=== PATIENT | female | born 1985 | race African-American/Black ===

== ENCOUNTER 2017-06-21 13:39 | Emergency (ER) | payer SELFPAY ==
[2017-06-21 13:39] VITALS: BP 127/78; PULSE 81; RESP 16; TEMP 36.3; O2SAT 100; BMI 32.5
--- NOTE | 2017-06-21 13:59 | ED.DEP ---
ED Disposition - Plan for ED Patient: Chief Complaint: Dental Instructions: ED Tooth Pain Prescriptions: Oxycodone HCl/Acetaminophen [Percocet 5/325] 1 tablet PO Q6H PRN PRN 2 Days #8 tablet PRN Reason: Pain Penicillin V Potassium 500 mg PO 4X/DAY #40 tablet Referrals: NOT,DEFINED [Primary Care Provider] -
--- NOTE | 2017-06-21 14:06 | ED.DCSUM_ITS ---
- ER Visit Summary Date of Service: 06/21/17 Chief Complaint: Dental pain History of Present Illness: The patient is a 31 F presenting with dental pain. This has been ongoing for the past week. She has appointment with her dentist this upcoming . She has been taking ibuprofen at home with no relief. She denies fever swelling or other complaints. Physical Examination: Vitals are stable. Patient is afebrile. Alert no acute distress. HEENT exam left lower molar tenderness palpation with no surrounding fluctuance. No sublingual edema Neck is supple. Lungs are clear and equal bilaterally. Heart is regular rate and rhythm. Abdomen is soft nontender nondistended. Extremities are unremarkable. Skin is warm and dry. Remainder of exam is unremarkable. Emergency Department Course and Treatment: Patient given penicillin and short course of Percocet. Advised to follow-up with her dentist as scheduled. Advised return ED if worsening complaints. Disposition: Discharge home Impression: Odontalgia This note was generated with [employer] dictation software. It may contain incorrect words, spelling, and punctuation that were not noted in review of the chart prior to signing ED Disposition - Plan for ED Patient: Chief Complaint: Dental Instructions: ED Tooth Pain Prescriptions: Oxycodone HCl/Acetaminophen [Percocet 5/325] 1 tablet PO Q6H PRN PRN 2 Days #8 tablet PRN Reason: Pain Penicillin V Potassium 500 mg PO 4X/DAY #40 tablet Referrals: NOT,DEFINED [Primary Care Provider] -
[2017-06-21] MEDS: Penicillin Vk 250 MG Tablet 500 MG PO (14:15)
[2017-06-21] MEDS: oxyCODONE 5 MG Tablet PO (14:15)
[2017-06-21 14:26] VITALS: PULSE 82; RESP 16; O2SAT 99
== END 2017-06-21 14:27 | disposition home or self-care (01) ==
LOC: ED 14:10
PROVIDERS: Emergency Provider Emergency Medicine
DX: K08.89 Other specified disorders of teeth and supporting structures (principal)
CPT/HCPCS: 99282

== ENCOUNTER 2017-06-23 19:39 | Emergency (ER) | payer SELFPAY ==
[2017-06-23 19:39] VITALS: BP 126/76; PULSE 82; RESP 14; TEMP 35.9; O2SAT 98; BMI 28.1
--- NOTE | 2017-06-23 20:20 | ED.VISSUMM ---
- ER Visit Summary Date of Service: 06/23/17 Chief Complaint: Dental pain History of Present Illness: The patient is a 31 F presenting with dental pain. She states this has been ongoing for the past several days. She was seen in the ED 2 days ago for similar complaints. She was given a short course of Percocet and penicillin at that time. She states she has been unable to get into her dentist. She takes ibuprofen at home. She denies fever or other complaints. Physical Examination: Vitals are stable. Patient is afebrile. Alert no acute distress. HEENT exam frontal teeth tenderness, no surrounding fluctuance. No sublingual edema Neck is supple. Lungs are clear and equal bilaterally. Heart is regular rate and rhythm. Extremities are unremarkable. Skin is warm and dry. Remainder of exam is unremarkable. Emergency Department Course and Treatment: Patient is given Percocet ?1. She is advised to continue ibuprofen and penicillin at home. Advised to follow-up with her dentist. Advised return to ED if worsening complaints. Disposition: Discharge home Impression: Odontalgia This note was generated with [employer] dictation software. It may contain incorrect words, spelling, and punctuation that were not noted in review of the chart prior to signing ED Disposition - Plan for ED Patient: Chief Complaint: Dental Instructions: ED Tooth Pain Referrals: Care Physician,No Primary [Primary Care Provider] -
--- NOTE | 2017-06-23 20:22 | ED.DEP ---
ED Disposition - Plan for ED Patient: Chief Complaint: Dental Instructions: ED Tooth Pain Referrals: Care Physician,No Primary [Primary Care Provider] -
[2017-06-23] MEDS: oxyCODONE 5 MG Tablet PO (20:29)
[2017-06-23 20:30] VITALS: PULSE 80; RESP 15
== END 2017-06-23 20:31 | disposition home or self-care (01) ==
PROVIDERS: Emergency Provider Emergency Medicine
DX: K08.89 Other specified disorders of teeth and supporting structures (principal)
CPT/HCPCS: 99283

== ENCOUNTER → 2017-10-22 14:32 | Outpatient (CLI) | payer MEDICAID, SELFPAY ==
[2017-10-30 11:48] LABS: HPV HC, High Risk Positive (Negative); HPV Reflexed? YES, CHARGE PATIENT
== END ==
PROVIDERS: Visit Provider Obstetrics & Gynecology
DX: Z12.4 Encounter for screening for malignant neoplasm of cervix (principal)
CPT/HCPCS: 87624; 88175; G0145

== ENCOUNTER 2017-11-07 20:08 | Emergency (ER) | payer MEDICAID, SELFPAY ==
[2017-11-07 20:08] VITALS: BP 151/95; PULSE 82; RESP 18; TEMP 36.6; O2SAT 99; BMI 32.5
--- NOTE | 2017-11-07 20:56 | ED.DCSUM_ITS ---
- ER Visit Summary Date of Service: 11/07/17 Chief Complaint: Bee sting History of Present Illness: The patient is a 31 F presenting with bee sting to right knee. This occurred 1.5 hours prior to arrival. She was on her lunch break and was stung by a bee on her right knee. She has had no difficulty breathing or swallowing. No sensation of tongue swelling. She took Benadryl prior to arrival. She has no history of allergies. No other complaints. Physical Examination: Vitals are stable. Patient is afebrile. Alert no acute distress. HEENT exam is unremarkable. No tongue swelling, no pharyngeal edema. Neck is supple. Lungs are clear and equal bilaterally. No wheezing Heart is regular rate and rhythm. Abdomen is soft nontender nondistended. Extremities mild erythema anterior right knee with active full range of motion Skin is warm and dry. No rash No focal neurologic deficit. Remainder of exam is unremarkable. Emergency Department Course and Treatment: Patient is given ice pack, Naprosyn. Advised signs and symptoms for which to return to the ED. Advised return ED for any worsening complaints. Disposition: Discharge home Impression: Local reaction, bee sting This note was generated with [employer] dictation software. It may contain incorrect words, spelling, and punctuation that were not noted in review of the chart prior to signing ED Disposition - Plan for ED Patient: Disposition: Home or Assisted Living Chief Complaint: Lower Extremity Injury Instructions: ED Bite Sting Insect Local Allergic React Referrals: Stefan Jaime MD [STAFF PHYSICIAN] - Care Physician,No Primary [Primary Care Provider] -
--- NOTE | 2017-11-07 21:01 | ED.DEP ---
ED Disposition - Plan for ED Patient: Chief Complaint: Lower Extremity Injury Instructions: ED Bite Sting Insect Local Allergic React Referrals: Care Physician,No Primary [Primary Care Provider] - Stefan Jaime MD [STAFF PHYSICIAN] -
[2017-11-07 21:13] VITALS: PULSE 79; RESP 16; O2SAT 99
[2017-11-07] MEDS: Naproxen 500 MG Tablet PO (21:13)
== END 2017-11-07 21:13 | disposition home or self-care (01) ==
LOC: ED 21:01
PROVIDERS: Emergency Provider Emergency Medicine
DX: T63.441A Toxic effect of venom of bees, accidental (unintentional), initial encounter (principal); L53.0 Toxic erythema; Z72.0 Tobacco use
CPT/HCPCS: 99283

== ENCOUNTER → 2017-11-12 15:52 | Outpatient (CLI) | payer MEDICAID, SELFPAY ==
--- NOTE | 2017-11-12 | IMM_PTH ---
PATIENT: GERSON HERRERA LOC: [facility] U#:[id number] AGE/SX: 39/F ROOM: RE11/12/[address]: Dr. Jadiel Fritz MD : 1985 BED: DIS: SPEC #: [id number] RECD: 11/14/17 10:09 STATUS: ТАТЬЯНА REQ #: [id number] ANIKA: 11/12/17 00:[address]: Jadiel Fritz DEPT: IMMUNOHISTOCHEMISTRY RECD BY: Drea Gibbons ENTERED: 11/14/17 10:10 SP TYPE: IMMUNO OTHR DR: No Primary Care Phys Tissues: Uterine cervix, NOS Procedures: p16 (initial) KI-67 (add) PHYSICIAN & INSTITUTION [place] [phone] SPECIMEN INFORMATION: Tissue Source: A - Cervical biopsy 6 o'clock Clinical Info: ASCUS, positive HPV Specimen Number: [id number] CPT code: 90844, 74116 METHODOLOGY: Deparaffinized sections of prefer/formalin-fixed tissue or PAP/DQ stained slides are incubated with monoclonal/polyclonal antibodies/oligonucleotide probes. Localization is made via biotin free immunoperoxidase method. Appropriate controls are performed and reacted as expected. Results on target cell population are indicated in the following table: RESULTS: ANTIBODY / CLONE RESULT Block A P16 (E6H4) positive, focal block staining Ki-67 (30-9) positive, focal moderate These tests were developed and their performance characteristics determined by [facility]. They may not have been cleared or approved by the U.S. Food and Drug Administration. The FDA has determined that such clearance or approval is not necessary. INTERPRETATION: A.Cervix at 6 o'clock, biopsy: Focal mild and moderate squamous dysplasia. This case has been reviewed in consultation with Dr. Tracy who concurs with the above diagnosis. SJ:renetta 11/17/17
--- NOTE | 2017-11-12 | CER_PTH ---
PATIENT: GERSON HERRERA LOC: [facility] U#:[id number] AGE/SX: 39/F ROOM: RE11/12/[address]: Dr. Jadiel Fritz MD : 1985 BED: DIS: SPEC #: [id number] RECD: 11/13/17 08:14 STATUS: ТАТЬЯНА LOIS #: [id number] ANIKA: 11/12/17 00:[address]: Jadiel Fritz DEPT: SURGICAL PATHOLOGY RECD BY: Eliezer Fish ENTERED: 11/13/17 08:14 SP TYPE: CERV OTHR DR: No Primary Care Phys Tissues: A - Uterine cervix, NOS B - Endocervical Procedures: Surgery Specimen Level IV HEADER OPERATION: Colposcopy PRE-OP DIAGNOSIS: ASCUS, positive HPV TISSUE SUBMITTED: A - Cervical biopsy 6 o'clock, B - ECC MICROSCOPIC DIAGNOSIS A. 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 Focal chronic inflammation. See comment. B. ECC: Fragments of benign ecto- and endocervical epithelium, blood and mucous, negative for dysplasia. ROSSANA:renetta 11/14/17 COMMENT Immunohistochemistry ([id number]) for surrogate HPV marker (p16) supports the above diagnosis. This case has been reviewed in consultation with Dr. Tracy who concurs with the above diagnosis. MICROSCOPIC DESCRIPTION Slides are reviewed. GROSS DESCRIPTION A - Received in fixative is one container labeled with the patient's name and designated cervical biopsy 6 o'clock. The specimen consists of multiple irregular fragments of light stubbs soft tissue that in aggregate measure 1.5 x 0.3 x 0.1 cm. The specimen is totally submitted in one cassette. B - Received in fixative is one container labeled with the patient's name and designated ECC. The specimen consists of multiple fragments of hemorrhagic mucoid tissue that in aggregate measure 1 x 1 x 0.1 cm. The specimen is totally submitted in one cassette. / ROSSANA:renetta 11/13/17 TC:5 CPT: 00566 x2
== END ==
PROVIDERS: Visit Provider Obstetrics & Gynecology
DX: R87.610 Atypical squamous cells of undetermined significance on cytologic smear of cervix (ASC-US) (principal); R87.810 Cervical high risk human papillomavirus (HPV) DNA test positive
CPT/HCPCS: 88305; 88341; 88342

== ENCOUNTER 2017-12-30 10:43 | Emergency (ER) | payer MEDICAID, SELFPAY ==
[2017-12-30 10:45] VITALS: BP 117/78; PULSE 99; RESP 18; TEMP 36.4; O2SAT 99; BMI 33.6
--- NOTE | 2017-12-30 11:53 | ED.DCSUM_ITS ---
- ER Visit Summary Date of Service: 12/30/17 Chief Complaint: Hand trouble History of Present Illness: The patient is a 32 F with right hand pain for several days. The pain feels sharp. It is over the ulnar side and radiates up the forearm. Worse with touch and movement. Worse at night. She does work in a factory. Denies any injuries. No other medical history. Physical Examination: Afebrile and vitals unremarkable. Normal inspection. Good range of motion. Normal strength. She does report subjective paresthesias in her right hand and wrist over the ulnar aspect. Good strength. Good pulses and capillary refill. Test Results: None Emergency Department Course and Treatment: Patient treated with ibuprofen and Kenalog. Wrist splint. Rest ice elevate. Follow-up with primary care. Treatment Plan: As above Disposition: Discharge Impression: 1. Right ulnar neuropathy This note was generated with [employer] dictation software. It may contain incorrect words, spelling, and punctuation that were not noted in review of the chart prior to signing ED Disposition - Plan for ED Patient: Chief Complaint: Upper Extremity Injury Referrals: Care Physician,No Primary [Primary Care Provider] -
--- NOTE | 2017-12-30 11:53 | ED.DEP ---
ED Disposition - Plan for ED Patient: Chief Complaint: Upper Extremity Injury Instructions: ED Palsy Unlar Nerve Prescriptions: Ibuprofen [Motrin] 800 mg PO TID PRN PRN #20 tab PRN Reason: Pain
[2017-12-30] MEDS: Ibuprofen 600 MG Tablet PO (12:07)
[2017-12-30] MEDS: Triamcinolone Acetonide 40 MG/ML Vial IM (12:07)
[2017-12-30 12:26] VITALS: BP 133/68; PULSE 74; RESP 16; O2SAT 100
== END 2017-12-30 12:27 | disposition home or self-care (01) ==
LOC: ED 11:54
PROVIDERS: Emergency Provider Emergency Medicine
DX: G56.21 Lesion of ulnar nerve, right upper limb (principal); Z72.0 Tobacco use
CPT/HCPCS: 96372; 99283

== ENCOUNTER 2018-04-17 03:05 | Emergency (ER) | payer MEDICAID, SELFPAY ==
[2018-04-17 03:07] VITALS: BP 110/69; PULSE 71; RESP 16; TEMP 36.9; O2SAT 97; BMI 34.4
--- NOTE | 2018-04-17 03:16 | CT_ITS ---
HISTORY: ABDOMEN PAIN X 2 DAYS,ELEVATED WBC,PREG TESTWAS NEGATIVE TECHNIQUE: Helically acquired images were obtained of the abdomen and pelvis following IV contrast. A radiation dose optimization technique was used for this scan. IV Contrast dosage and agent: 100 cc Isovue-300 contrast Oral contrast: Yes COMPARISON: 02/27/2017 FINDINGS: With comparison previous, no significant change. Lower thorax: Clear Mild hepatomegaly. No focal hepatic lesion or biliary dilatation. Negative gallbladder. Normal spleen and pancreas. Bilateral renal excretion of contrast without evidence of hydronephrosis, pyelonephritis, or suspicious renal lesion. Adrenal glands are not enlarged. The abdominal aorta and IVC appear normal. No ascites or retroperitoneal lymph no enlargement. GI tract: No obstruction. Normal appendix. Pelvis: Anteverted uterus. Bilateral stent-like devices in the region of the fallopian tubes. The pelvis shows no free fluid or lymphadenopathy. Bones: No acute osseous abnormality. CT/Abdomen/Pelvis WITH Contrast IMPRESSION: 1. No acute disease or significant change. 2. Mild hepatomegaly. 3. Previous fallopian tube surgery. Individualized dose optimization techniques were used for this CT. at 0526 Reported and signed by: Johnathon Juarez MD Electronically Signed: Johnathon Juarez, at 5:50 EST Tel , Service support ,
--- NOTE | 2018-04-17 03:28 | ED.VISSUMM ---
- ER Visit Summary Date of Service: 04/17/18 Chief Complaint: [32-year-old female presents with 2 days of diffuse abdominal pain. She describes it as a cramping sensation. She is nauseated but has not vomited. Bowel movements have been normal. No urinary symptoms. Current severity is mild] Physical Examination: Vitals within normal limits. She is not in distress. Neck supple. Heart tones are regular and without murmur. Lungs are clear bilaterally. Abdomen is soft and nontender. Test Results: BC, BMP, hepatic panel, and lipase all within normal limits. HCG negative. Urinalysis unremarkable. She looks well. Not in distress. Abdomen is soft and nontender. CT abdomen and pelvis negative for acute process. Emergency Department Course and Treatment: Workup unremarkable here. There is mild hepatosplenomegaly the liver enzymes are within normal limits. Exact cause of her pain is unclear but she has no evidence of an acute surgical abdomen and looks well. I feel she can safely be discharged home with close follow-up Treatment Plan: Oral Bentyl and Zofran as needed, return if worse Disposition: Home stable Impression: She will encounter abdominal pain uncertain etiology This note was generated with [employer] dictation software. It may contain incorrect words, spelling, and punctuation that were not noted in review of the chart prior to signing ED Disposition - Plan for ED Patient: Instructions: ED Abdominal Pain Unkn Cause Prescriptions: Ondansetron [Zofran Odt] 4 mg PO Q8H PRN PRN #10 tablet PRN Reason: Nausea Dicyclomine HCl [Bentyl] 20 mg PO TIDAC #20 capsule Referrals: Care Physician,No Primary [Primary Care Provider] -
[2018-04-17] MEDS: Ondansetron 4 MG/2 ML Vial IV (03:37)
[2018-04-17 03:46] LABS: Absolute Lymphocyte Count 4.11 X10^3/ul (0.83-4.51); Absolute Neutrophil Count 6.7 X10^3/uL (2.0-7.7); Basophil# 0.03 X10^3/uL; Basophil% 0.3 % (0-1); Eosinophil# 0.22 X10^3/uL; Eosinophils% 1.9 % (0-5); Hematocrit 43.1 % (37-47); Hemoglobin 13.9 g/dl (12.0-15.0); Lymphocyte # 4.11 X10^3/ul (4.0); Lymphocyte % 35.3 % (19-41); Mean Corp Hgb Conc 32.3 g/gl (32-36); Mean Corpuscular Hgb 31.7 pg (27.0-32.0); Mean Corpuscular Volume 98.2 fL (81-99); Mean Platelet Vol. 10.4 fl (6.2-12.0); Monocyte# 0.59 X10^3/uL; Monocyte% 5.1 % (0-10); Neutrophil # 6.67 X10^3/uL (2.7-7.7); Neutrophil % 57.1 % (47-70); Platelet Count 215 K/mm3 (150-450); RBC Distribution Width CV 13.1 % (11.6-14.6); RBC Distribution Width SD 46.3 fl (35.1-43.9); Red Blood Count 4.39 M/mm3 (4.2-5.4); White Blood Count 11.7 K/mm3 (4.4-11.0)
[2018-04-17 03:52] LABS: POSITIVE COUNT NO; POSITIVE DIFFERENTIAL NO; POSITIVE MORPHOLOGY NO
[2018-04-17 04:05] LABS: AST(SGOT) 13 U/L (15-37); Alanine Aminotransfer ALT/SGPT 19 U/L (13-56); Albumin, Serum 3.7 g/dL (3.2-5.0); Alkaline Phosphatase 78 U/L (45-117); Anion Gap 6 (5-15); BUN 15 mg/dL (7-18); BUN/Creat Ratio 20.2 RATIO (10-20); Bilirubin, Direct 0.07 mg/dL (0.00-0.30); Calcium,Total 8.6 mg/dL (8.5-10.1); Chloride 109 mmol/L (98-107); Creatinine, Serum 0.74 mg/dL (0.55-1.02); EST Glomerular Filtration Rate 96 mL/min (>60); Est Glom Filt Rate - Afr Amer 116 mL/min (>60); Estimated Creatinine Clearance 105.15 ml/min; Globulin 3.9 g/dL (2.2-4.2); Glucose 99 mg/dL (74-106); Lipase 106 U/L (73-393); Potassium 4.5 mmol/L (3.5-5.1); Protein, Total 7.6 g/dL (6.4-8.2); Sodium Level 141 mmol/L (136-145)
[2018-04-17 04:07] LABS: Pregnancy, Serum, hCG Quali. NEGATIVE Negative (0-9 Nonpreg)
[2018-04-17 04:38] LABS: Mucous, Urine 0 SEEN /hpf (<or=2+); Red Blood Cells-Urine 0 SEEN /hpf (0-5); White Blood Cells 0 SEEN /hpf (0-5)
[2018-04-17 05:08] LABS: Color, Urine Straw (Yellow); Glucose, Dipstick Normal (Normal); Ketone-Dipstick Negative (Negative); Leukocyte Esterase-Dipstick Negative /ul (Negative); Nitrite-Dipstick Negative (Negative); Occult Blood-Urine Negative /ul (Negative); Protein-Dipstick Negative (Negative); Specific Gravity, Urine 1.005 (1.002-1.030); Urine Bilirubin Dipstick Negative (Negative); Urine Clarity Clear (Clear); Urine Urobilinogen Normal (Normal); Urine pH 6.5 (5.0 - 8.0)
[2018-04-17 05:14] LABS: Bacteria RARE /hpf (None Seen); Squamous Epithelial Cells - UA 0-5 SEEN /hpf (5-10)
[2018-04-17 06:31] VITALS: BP 117/72; PULSE 37; RESP 18; O2SAT 99
== END 2018-04-17 06:32 | disposition home or self-care (01) ==
PROVIDERS: Emergency Provider Emergency Medicine
DX: R10.9 Unspecified abdominal pain (principal)
CPT/HCPCS: 74177; 80048; 80076; 81001; 83690; 84703; 85025; 96361; 96374; 99283; J7030; Q9967; A4216; J2405

== ENCOUNTER 2018-10-18 17:00 | Emergency (ER) | payer MEDICAID, SELFPAY ==
[2018-10-18 17:02] VITALS: BP 126/79; PULSE 72; RESP 16; TEMP 36.1; O2SAT 97; BMI 31.8
--- NOTE | 2018-10-18 17:13 | RAD_ITS ---
STUDY: X-RAY - LEFT SHOULDER REASON FOR EXAM: Female, 32 years old. Pain TECHNIQUE: 4 view(s) of the shoulder. COMPARISON: 06/22/2014 FINDINGS: There is no evidence of fracture or dislocation. There are no significant degenerative changes. There are no radiodense foreign bodies. RAD/Shoulder min 2 Views IMPRESSION: Negative radiographs of the left shoulder. Electronically Signed: Brandyn English, at 17:49 EDT Tel , Service support ,
--- NOTE | 2018-10-18 17:13 | RAD_ITS ---
STUDY: X-RAY - CERVICAL SPINE REASON FOR EXAM: Female, 32 years old. Pain. TECHNIQUE: 4 view(s) of the cervical spine were obtained. COMPARISON: None FINDINGS: There is no evidence of fracture or dislocation in the cervical spine. The dens is intact. The vertebral body heights and disc spaces are well-maintained. There are no significant degenerative changes. The prevertebral soft tissues are unremarkable. There is no radiodense foreign body. RAD/Cerv Spine 2 or 3 Views IMPRESSION: No fracture or dislocation in the cervical spine. Electronically Signed: Brandyn English, at 17:49 EDT Tel , Service support ,
[2018-10-18] MEDS: cycloBENZAPRine HCl 10 MG Tablet PO (17:36)
[2018-10-18] MEDS: Naproxen 500 MG Tablet PO (17:36)
--- NOTE | 2018-10-18 18:07 | ED.DCSUM_ITS ---
- ER Visit Summary Date of Service: 10/18/18 Chief Complaint: Shoulder pain with left shoulder pain for about a week. Nothing seemed to bring it on. It is worse with movement History of Present Illness: The patient is a 32 F and better with rest. She reports some numbness down her left arm. Denies neck pain or neck problems. Denies any skin changes, rash, or redness. Denies chest pain or shortness of breath. Physical Examination: Afebrile and vital signs unremarkable. Patient alert and oriented. Inspection normal without rash or skin changes. No deformities. Good range of motion. Strength normal. Pain on palpation of the trapezius muscle. No neck tenderness. Good range of motion. Heart regular. Lungs clear. Subjective paresthesias down her left arm. Test Results: X-rays of her neck and left shoulder were unremarkable. Emergency Department Course and Treatment: Patient likely has myofascial pain. She was treated with naproxen and Flexeril. I did check x-rays of her shoulder and cervical spine and they were unremarkable. There is nothing to suggest cardiac, vascular, or respiratory etiology. No further testing is indicated emergently. Patient will be treated with naproxen and Flexeril. Follow-up with outpatient primary care. Return for any new or worsening issues. Treatment Plan: As above Disposition: Discharge Impression: 1. Left shoulder pain This note was generated with [employer] dictation software. It may contain incorrect words, spelling, and punctuation that were not noted in review of the chart prior to signing ED Disposition - Plan for ED Patient: Referrals: Care Physician,No Primary [Primary Care Provider] -
--- NOTE | 2018-10-18 18:10 | ED.DEP ---
ED Disposition - Plan for ED Patient: Instructions: Shoulder Sprain Prescriptions: cycloBENZAPRine HCl [Flexeril] 10 mg PO TID PRN #20 tab PRN Reason: Muscle Spasm Prescription Printed Naproxen [Naprosyn] 500 mg PO BID PRN #20 tab Prescription Printed Referrals: Luci Saldana [NON-STAFF] -
== END 2018-10-18 18:30 | disposition home or self-care (01) ==
LOC: ED 18:24
PROVIDERS: Emergency Provider Emergency Medicine
DX: M25.512 Pain in left shoulder (principal); Z72.0 Tobacco use
CPT/HCPCS: 72040; 73030; 99283

== ENCOUNTER 2019-07-29 23:23 | Emergency (ER) | payer MEDICAID, SELFPAY ==
[2019-07-29 23:24] VITALS: BP 148/79; PULSE 88; RESP 16; TEMP 36.6; O2SAT 100; BMI 31.5
--- NOTE | 2019-07-29 23:48 | ED.VIS.UPPEX ---
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 Gradual onset of discomfort without neurologic symptoms, no clavicle or subacromial pain. No chest pain or shortness of breath. Past Medical History - Allergies and Home Meds Allergies/Adverse Reactions: Allergies acetaminophen [From Vicodin] Adverse Reaction (Verified 07/29/19 23:26) Nausea hydrocodone [From Vicodin] Adverse Reaction (Verified 07/29/19 23:26) Nausea Primary Care Physician: Care Physician,No Primary [Primary Care Provider] - Past Medical History: None Smoking Status: Current every day smoker Review of Systems General: Denies: Chills, Fever, Sweats Cardiovascular: Denies: Chest pain, Palpitations Respiratory: Denies: Dyspnea, Cough Musculoskeletal: Reports: Back pain, Extremity Pain. Denies: Neck pain, Swelling Skin: Denies: Rash, Wounds Neurological: Denies: Headache, Weakness, Numbness Physical Exam Vital Signs/Narrative: Vital Signs Temp Pulse Resp BP Pulse Ox 07/29/19 23:24 97.8 F 88 16 148/79 H 100 General: Well nourished, Well developed, - - nad Head: Normocephalic, Atraumatic Neck: Nontender, Full ROM Extremeties: Patient has full range of motion of the left shoulder including abduction without discomfort, no subacromial tenderness, acromioclavicular tenderness, bicipital tenderness, negative Yergason sign. No bony tenderness throughout the back or shoulder blade, only tender in the rhomboids where she is very tender on the left. Abducting her left upper extremity across to the opposite shoulder stretching the rhomboids feels good to the patient. Skin: Normal color, No rash, No Trauma Neurological: Alert, Oriented x3, Cranial nerves II-XII grossly intact, Normal Strength, Normal Sensation, Normal Gait Psychological: Normal affect, Normal Mood Diagnostic/Tx/Re-eval - Medical Decision Making Patient is reassured, this is pain in the rhomboids due to muscular overuse. She was given injections of Toradol and Norflex, as well as prescriptions for Naprosyn and Flexeril, and encourage her to seek out other methods of supportive care such as chiropractic, massage therapy, and trying to rest the muscles as much as possible. She is agreeable to this plan and will follow-up with her doctor as needed. ED Disposition - Plan for ED Patient: Disposition: Home or Assisted Living Diagnosis: Strain of rhomboid muscle Instructions: ED Sprain Thoracic Spine Prescriptions: cycloBENZAPRine HCl [Flexeril] 10 mg PO TID PRN #20 tab PRN Reason: Muscle Spasm Prescription Printed Naproxen [Naprosyn] 500 mg PO BID PRN #20 tab Prescription Printed Referrals: Miguelito Santos MD [STAFF PHYSICIAN] - 1-2 Weeks
[2019-07-30] MEDS: Ketorolac 60 MG/2 ML Vial IM (00:03)
[2019-07-30] MEDS: Orphenadrine 60 MG/2 ML Ampul IM (00:03)
[2019-07-30 00:14] VITALS: RESP 16
== END 2019-07-30 00:15 | disposition home or self-care (01) ==
LOC: ED 07-30 00:14
PROVIDERS: Emergency Provider Emergency Medicine
DX: S29.012A Strain of muscle and tendon of back wall of thorax, initial encounter (principal); F17.200 Nicotine dependence, unspecified, uncomplicated; X50.3XXA Overexertion from repetitive movements, initial encounter; Y93.89 Activity, other specified; Y92.89 Other specified places as the place of occurrence of the external cause; Y99.0 Civilian activity done for income or pay
CPT/HCPCS: 96372; 99282

== ENCOUNTER 2019-12-01 16:40 | Emergency (ER) | payer MEDICAID, SELFPAY ==
[2019-12-01 16:41] VITALS: BP 120/54; PULSE 88; RESP 14; TEMP 36.8; O2SAT 98; BMI 28.1
--- NOTE | 2019-12-01 17:36 | ED.DEP ---
ED Disposition - Plan for ED Patient: Instructions: ED LUMBAR SPRAIN/STRAIN Prescriptions: cycloBENZAPRine HCl [Flexeril] 10 mg PO TID PRN #20 tab PRN Reason: Muscle Spasm Transmission Status: Pending to [facility] Naproxen [Naprosyn] 500 mg PO BID PRN #20 tab Transmission Status: Pending to [facility] Referrals: Florencio Peacock MD [NON-STAFF] -
--- NOTE | 2019-12-01 17:39 | ED.DCSUM_ITS ---
- ER Visit Summary Date of Service: 12/01/19 Chief Complaint: Back pain History of Present Illness: The patient is a 34 F presenting with back pain which started yesterday. Pain is in the right lower back. She states it radiates to right side of her buttock. She denies bowel or bladder incontinence. Denies numbness or weakness. She states she lifts frequently at work but denies known injury. She has taken ibuprofen at home. She denies fever. Denies other complaints. Physical Examination: Vitals are stable. Patient is afebrile. Alert no acute distress. HEENT exam is unremarkable. Neck is supple. Lungs are clear and equal bilaterally. Heart is regular rate and rhythm. Abdomen is soft nontender nondistended. Back:right paraspinal lumbar muscle tenderness, no midline tenderness, straight leg raise +30 degrees on the right Extremities are unremarkable. Skin is warm and dry. No focal neurologic deficit. Normal strength and sensation Remainder of exam is unremarkable. Emergency Department Course and Treatment: Patient drove herself to the ED. She was given Toradol IM. She is given prescription for Naprosyn and Flexeril. She is given Dr. Peacock tanner rotary drum continuous process for no doctor for follow-up. Advised return to the ED for worsening complaints. Disposition: Discharge home Impression: Lumbar strain This note was generated with [employer] dictation software. It may contain incorrect words, spelling, and punctuation that were not noted in review of the chart prior to signing ED Disposition - Plan for ED Patient: Instructions: ED LUMBAR SPRAIN/STRAIN Prescriptions: cycloBENZAPRine HCl [Flexeril] 10 mg PO TID PRN #20 tab PRN Reason: Muscle Spasm Transmission Status: Received by [facility] Naproxen [Naprosyn] 500 mg PO BID PRN #20 tab Transmission Status: Received by [facility] Referrals: Florencio Peacock MD [NON-STAFF] -
[2019-12-01] MEDS: Ketorolac 60 MG/2 ML Vial IM (17:42)
[2019-12-01 17:59] VITALS: RESP 16
== END 2019-12-01 18:00 | disposition home or self-care (01) ==
LOC: ED 17:20
PROVIDERS: Emergency Provider Emergency Medicine
DX: S39.012A Strain of muscle, fascia and tendon of lower back, initial encounter (principal); X58.XXXA Exposure to other specified factors, initial encounter
CPT/HCPCS: 96372; 99282

== ENCOUNTER 2020-06-09 19:51 | Emergency (ER) | payer OTHER, MEDICAID, SELFPAY ==
[2020-06-09 19:51] VITALS: BP 140/81; PULSE 98; RESP 18; TEMP 36.4; O2SAT 98; BMI 31.3
--- NOTE | 2020-06-09 20:13 | RAD_ITS ---
STUDY: X-RAY - LEFT FOOT CLINICAL: Female, 34 years old. Mid foot injury TECHNIQUE: 3 view(s) of the foot. COMPARISON: None. FINDINGS: Normal talus, calcaneus, and tarsal bones. Normal visualized subtalar, talonavicular, calcaneocuboid, tarsal and tarsometatarsal articulations. Normal metatarsi. Normal metatarsophalangeal joint of the great toe. Normal tibial and fibular sesamoid bones. Normal interphalangeal joint of the great toe. Normal phalanges of the great toe. Normal second through fifth metatarsophalangeal joints. Normal interphalangeal joints and phalanges of the lesser toes. The soft tissue structures are unremarkable. RAD/Foot min 3 Views IMPRESSION: Normal x-ray examination of the foot. Electronically Signed: Alli Rojo DO at 21:19 EDT Tel [phone], Service support ,
--- NOTE | 2020-06-09 20:32 | ED.VIS.GEN ---
History of Present Illness Chief Complaint: Lower Extremity Injury Informant: Patient Onset: Weeks - 1 Narrative: Inversion injury left foot a week ago walking out of her back steps. No falls or head injuries. Pain worse with ambulation. Using Tylenol. Has not had this evaluated. Denies any new injuries. No paresthesias. Prior similar symptoms: No Past Medical History - Allergies and Home Meds Allergies/Adverse Reactions: Allergies acetaminophen [From Vicodin] Adverse Reaction (Verified 06/09/20 19:53) Nausea hydrocodone [From Vicodin] Adverse Reaction (Verified 06/09/20 19:53) Nausea Primary Care Physician: Care Physician,No Primary [Primary Care Provider] - Past Medical History: None Smoking Status: Current every day smoker Review of Systems General: Denies: Chills, Fever, Sweats Eyes: Denies: Visual changes - bilaterally, Diplopia ENT: Denies: Rhinorrhea, Sore throat Cardiovascular: Denies: Chest pain, Palpitations Respiratory: Denies: Dyspnea, Cough, Dyspnea on exertion Gastrointestinal: Denies: Abdominal pain, Nausea, Vomiting, Diarrhea, Melena, Hematochezia Genitourinary: Denies: Dysuria, Hematuria, Frequency Musculoskeletal: Reports: Arthralgias. Denies: Back pain, Extremity Pain Skin: Denies: Rash, Wounds Neurological: Denies: Headache, Weakness, Numbness Physical Exam Vital Signs/Narrative: Vital Signs Temp Pulse Resp BP Pulse Ox 06/09/20 19:51 97.6 F L 98 18 140/81 H 98 Inital Vital Signs reviewed: Yes General: Well nourished, Well developed, No Acute Distress Head: Normocephalic, Atraumatic Eyes: Perrl, EOMI ENT: Moist mucous membranes, No rhinorrhea Neck: Supple, Nontender Cardiovascular: Regular rate, Regular rhythm, No murmurs Respiratory: No distress, CTA bilaterally, Chest nontender Abdomen: Soft, Nontender, Nondistended, Normal bowel sounds Back: Nontender, Normal Inspection Extremities: No edema, - - Left lower extremity no hip knee or ankle tenderness. No proximal fifth base tenderness. There was tenderness across the midfoot with no swelling or ecchymosis. Skin intact. Neurovascular intact. Skin: Normal color, No rash Neurological: Alert, Oriented x3, Cranial nerves II-XII grossly intact, Normal Strength, Normal Sensation Psychological: Normal affect, Normal Mood Diagnostic/Tx/Re-eval Clinical Impression(s) from Imaging Studies Foot X-Ray 06/09/20 20:13 IMPRESSION: Normal x-ray examination of the foot. Electronically Signed: Allianusha Rojo DO at 21:19 EDT Tel [phone], Service support , - Medical Decision Making 3 view left foot x-ray reviewed by myself and read by radiology no fracture or dislocation. Noted extraosseous bone medial to the cuboid bone. Patient given ibuprofen. Postop shoe provided she declined any crutches. Prescription for ibuprofen to use as needed. Follow-up as an outpatient. ED Disposition - Plan for ED Patient: Disposition: Home or Assisted Living Diagnosis: Sprain of left foot Instructions: ED Foot Sprain Prescriptions: Ibuprofen 600 mg PO 4X/DAY PRN #20 tablet PRN Reason: Pain 1-10 Or Fever Referrals: Care Physician,No Primary [Primary Care Provider] - Additional Instructions: keep follow up with your ortho doctor.
[2020-06-09] MEDS: Ibuprofen 600 MG Tablet PO (20:38)
== END 2020-06-09 22:05 | disposition home or self-care (01) ==
PROVIDERS: Emergency Provider Emergency Medicine
DX: S93.602A Unspecified sprain of left foot, initial encounter (principal); X58.XXXA Exposure to other specified factors, initial encounter; Y93.01 Activity, walking, marching and hiking; Y92.008 Other place in unspecified non-institutional (private) residence as the place of occurrence of the external cause; Y99.9 Unspecified external cause status; F17.200 Nicotine dependence, unspecified, uncomplicated
CPT/HCPCS: 73630; 99283

== ENCOUNTER 2021-02-04 23:12 | Emergency (ER) | payer OTHER, MEDICAID, SELFPAY ==
[2021-02-04 23:13] VITALS: BP 135/97; PULSE 99; RESP 16; TEMP 35.9; O2SAT 98; BMI 32.8
--- NOTE | 2021-02-04 23:28 | EX.ED.VIS.UR ---
HPI HPI - URI History of Present Illness Chief Complaint: Cold Sx Detail of Chief Complaint: Upper respiratory symptoms and exposure to Covid Informant: patient Onset/Context/Timing Onset: Days (Exposure 4 to 5 days ago with onset 2 days ago, February 02) Context: Sudden Onset Timing: Continuous Quality: Rhinorrhea, congestion, sore throat, cough, dyspnea, myalgias Location: Upper respiratory Current Severity: Mild Maximum Severity: Moderate Worsened by: Not Worsened By Swallowing, Eating Solids and Drinking Liquids Associated Symptoms Associated Symptoms: Positive for Nasal Congestion, Headache, Shortness of Breath and Nonproductive cough; Negative for Sinus Pressure, Myalgias, Nausea, Vomiting, Diarrhea, Chest Pain, Hemoptysis and Productive Cough Narrative Narrative: Patient is a 35-year-old woman with no significant past medical history who has been vaccinated and presents with upper respiratory infections. She was exposed to her mother 4 to 5 days ago. Mother is positive for Covid. She now presents with myalgias, frontal head discomfort, rhinorrhea, congestion, postnasal drainage and sore throat. She has a cough which is nonproductive. She does report dyspnea. She has mild dyspnea on exertion. She denies abdominal pain, nausea, vomiting diarrhea. Patient has loss of taste decreased smell and loss of appetite. Prior similar symptoms: No Recent Illness/Hospitalization: No ROS ROS ED Constitutional Constitutional ED: Reports fever(s) and subjective; Denies chills, sweats or weight loss Eyes Eyes: Denies blurry vision, change in vision or diplopia ENT ENT ED: Reports rhinorrhea, sore throat and other Details: Loss of taste and decreased smell with loss of appetite ; Denies ear pain Cardiovascular Cardiovascular: Denies chest pain, orthopnea, palpitations, paroxysmal nocturnal dyspnea or racing heartbeat Respiratory/Chest Respiratory/Chest: Reports cough, dyspnea and dyspnea on exertion; Denies orthopnea, paroxysmal nocturnal dyspnea or sputum Gastrointestinal Gastrointestinal: Denies abdominal pain, diarrhea, nausea or vomiting Genitourinary Genitourinary ED: Denies dysuria, hematuria or urinary frequency Musculoskeletal Musculoskeletal: Denies arthralgias, myalgias or neck pain Integumentary Denies rash Neurologic Neurologic: Reports weakness; Denies headache(s) or paresthesias Endocrine Endocrinology: Denies polydipsia, polyphagia or polyuria PFSH PFSH Home Medications Zonisamide [Zonegran] 25 mg PO QHS 07/29/19 [History Last Taken Unknown] ibuprofen 600 mg PO 4X/DAY PRN #20 tablet 06/09/20 [Rx Last Taken Unknown] Allergy/AdvReac Type Severity Reaction Status Date / Time acetaminophen [From Vicodin] AdvReac Nausea Verified 06/09/20 19:53 hydrocodone [From Vicodin] AdvReac Nausea Verified 06/09/20 19:53 Social History (Updated 02/04/21 @ 23:[address] Odilon Tavera MD) household members: significant other Smoking Status: Current every day smoker substance use type: does not use EXAM Physical Exam Const Vital Signs: 02/04/21 23:13 Temperature 96.7 F L Temperature Source Temporal Pulse Rate 99 Respiratory Rate 16 Blood Pressure 135/97 H Blood Pressure Mean 109 Pulse Ox 98 Oxygen Delivery Method Room Air Positive well nourished, well developed and obese General Appearance ED: well developed and NAD; Negative for cyanotic, diaphoretic or pallor Nutritional Appearance: obese HEENT Reports moist mucous membranes normocephalic and atraumatic External Ear: external ears normal and mastoids normal Eyes PERRL and EOMs intact bilaterally General Eye ED: Negative for pale conjunctiva or scleral icterus Neck no lymphadenopathy, supple, no meningeal signs and no JVD Resp normal respiratory effort and clear to auscultation bilaterally Auscultation: Negative for rales, rhonchi or wheezes Cardio S1 normal heart sound, S2 normal heart sound and no murmurs Rate: regular rate Rhythm: regular rhythm GI non-tender, non-distended and no masses Auscultation: normoactive bowel sounds Palpation: soft Back/Spine no CVA tenderness Cervical Spine: Negative for cervical spine tenderness Thoracic Spine / Upper Back: Negative for thoracic spinal tenderness Extremity normal to inspection; Negative for full ROM General Extremety ED: Negative for cyanosis General Extremity: Negative for cyanosis Neuro oriented x3, CN's II-XII intact bilaterally and no sensory deficits noted Sensorium / Orientation: alert Motor Exam: strength 5/5 throughout Psych mental status grossly normal Skin General Skin Exam: Negative for jaundice or pallor Lesions: no lesions Rashes: no rashes MDM MDM MDM Narrative Medical decision making narrative: Clinically patient has Covid. Will test for Covid. If she does have a positive test she is a candidate for monoclonal antibiotic infusion. Discharge Plan Triage Chief Complaint: Cold Sx ED Provider: Odilon Tavera Dx/Rx/DC Orders Clinical Impression: COVID-19 virus infection Instructions: Coronavirus Disease 2019 (COVID-19): Caring for Yourself or Others Prescriptions: No Action Zonisamide [Zonegran] 25 MG capsule 25 mg PO QHS RF: 0 ibuprofen 600 MG tablet 600 mg PO 4X/DAY PRN (Reason: Pain 1-10 Or Fever) Qty: 20 RF: 0 Primary Care Provider: Care Physician,No Primary Referrals: Care Physician,No Primary [Primary Care Provider] - Disposition Disposition: Home, Self Care
[2021-02-04 23:54] VITALS: O2SAT 98
[2021-02-05] MEDS: dexAMETHasone 4 MG Tablet 6 MG PO (01:14)
== END 2021-02-05 01:15 | disposition home or self-care (01) ==
PROVIDERS: Emergency Provider Emergency Medicine
DX: U07.1 COVID-19 (principal); F17.200 Nicotine dependence, unspecified, uncomplicated; E66.9 Obesity, unspecified; Z68.32 Body mass index [BMI] 32.0-32.9, adult
CPT/HCPCS: 87426; 99283

== ENCOUNTER → 2021-09-11 | Outpatient (CLI) | payer OTHER, SELFPAY ==
[2021-09-11 16:49] LABS: Hematocrit 40.6 % (37-47); Hemoglobin 13.6 g/dL (12.0-15.0); Mean Corp Hgb Conc 33.5 g/dL (32-36); Mean Corpuscular Hgb 31.6 pg (27.0-32.0); Mean Corpuscular Volume 94.2 fL (81-99); Mean Platelet Vol. 10.1 fl (6.2-12.0); Platelet Count 284 K/mm3 (150-450); RBC Distribution Width CV 13.1 % (11.6-14.6); Red Blood Count 4.31 M/mm3 (4.2-5.4); White Blood Count 11.6 K/mm3 (4.4-11.0)
[2021-09-11 17:28] LABS: Anion Gap 8 (5-15); BUN 15 mg/dL (7-18); BUN/Creat Ratio 18.5 RATIO (10-20); Chloride 109 mmol/L (98-107); Creatinine, Serum 0.81 mg/dL (0.55-1.02); EST Glomerular Filtration Rate 84 mL/min (>60); Est Glom Filt Rate - Afr Amer 102 mL/min (>60); Follicle Stimulating Hormone 2.9 mIU/mL; Glucose 128 mg/dL (74-106); Luteinizing Hormone 6.5 mIU/mL; Potassium 3.7 mmol/L (3.5-5.1); Prolactin 10.9 ng/mL; Sodium Level 139 mmol/L (136-145); T4 Free Direct 0.97 ng/dL (0.76-1.46); Thyroid Stim Hormone (TSH) 0.69 uIU/mL (0.358-3.74)
[2021-09-11 17:34] LABS: hCG Titer Quant., Serum < 1 mIU/mL (1-3)
== END | disposition home or self-care (01) ==
PROVIDERS: Visit Provider Obstetrics & Gynecology
DX: N64.52 Nipple discharge (principal)
CPT/HCPCS: 80048; 83001; 83002; 84146; 84439; 84443; 84702; 85027

== ENCOUNTER → 2021-09-21 | Outpatient (CLI) | payer OTHER, MEDICAID, SELFPAY ==
--- NOTE | 2021-09-21 14:39 | US_ITS ---
STUDY: ULTRASOUND BREAST - LEFT REASON FOR EXAM: Female, 35 years old. Nipple discharge. TECHNIQUE: Axial and longitudinal images of the LEFT breast were performed with a high resolution ultrasound transducer. # OF IMAGES: 33 COMPARISON: None. FINDINGS: LEFT Breast: Targeted examination of the retroareolar region of the left breast shows multiple small dilated ducts with small cysts, the largest of which measures approximately 5 mm in diameter. No filling defects and no suspicious lesions are identified. If the patient develops bloody nipple discharge, a left mammogram and breast MRI without and with contrast would be appropriate for further evaluation. US/Breast Limited Unilateral IMPRESSION: Cystic structures most likely representing dilated ducts and small bowel adjacent cysts. If the patient develops bloody nipple discharge, a diagnostic left mammogram and breast MRI without and with contrast would be appropriate for further investigation/evaluation. ASSESSMENT CATEGORY: BIRADS Category 2: Benign. A letter regarding these results will be sent to the patient by the facility within 30 days. Electronically Signed: Ronal Zimmerman MD at 11:09 EDT ,
--- NOTE | 2021-09-21 14:40 | BI_ITS ---
MAMMOGRAPHY - BILATERAL DIAGNOSTIC REASON FOR EXAM: Female, 35 years old. Left green nipple discharge for 1 1/2 weeks. PERTINENT HISTORY: No family history of breast cancer. TECHNIQUE: Digital examination. Mediolateral oblique (MLO) and craniocaudad (CC) views of both breasts were obtained. CAD: CAD was not performed on this study. COMPARISON: None. Baseline examination. FINDINGS: Breast Composition: There are scattered areas of fibroglandular density. There are no dominant masses or suspicious calcifications. If the patient develops bloody nipple discharge, she should have targeted breast ultrasound and, perhaps, a breast MRI study with contrast. BI/DIAG MAMM W/CAD, BILAT IMPRESSION: No abnormality identified. If the patient develops bloody nipple discharge, she should return for ultrasound of the involved breast. Breast MRI with contrast may also be needed in this clinical situation. ASSESSMENT CATEGORY: BIRADS Category 2: Benign. A letter regarding these results will be sent to the patient by the facility within 30 days. FOLLOW UP RECOMMENDATION: Begin screening mammograms at 40 years of age. (N) Approximately 10% of breast cancers are not detected by mammography. A normal mammogram should not delay biopsy of a clinically suspicious abnormality. Electronically Signed: Ronal Zimmerman MD at 9:39 EDT ,
== END | disposition home or self-care (01) ==
PROVIDERS: Visit Provider Obstetrics & Gynecology
DX: N64.52 Nipple discharge (principal)
CPT/HCPCS: 76642; 77062; 77066; G0279

== ENCOUNTER → 2021-11-09 | Outpatient (CLI) | payer OTHER, MEDICAID, SELFPAY ==
[2021-11-16 15:18] LABS: HPV APTIMA, High Risk Negative (Negative)
== END | disposition home or self-care (01) ==
LOC: LABSPEC 09:17
PROVIDERS: Visit Provider Obstetrics & Gynecology
DX: Z12.4 Encounter for screening for malignant neoplasm of cervix (principal)
CPT/HCPCS: 87624; 88175; G0145

== ENCOUNTER 2024-04-08 03:19 | Emergency (ER) | payer BC, SELFPAY ==
[2024-04-08 03:20] VITALS: BP 148/85; PULSE 98; RESP 18; TEMP 36.9; O2SAT 98; BMI 29.7
--- NOTE | 2024-04-08 03:29 | EDS_ITS ---
HPI History of Present Illness HPI Narrative: Patient rolled her right ankle complaining of right lateral ankle pain and proximal foot pain just below the ankle. Prior sprains no prior fracture or surgery. She did not fall just rolled it. No other injuries. Chief Complaint: Lower Extremity Injury Informant: patient Occured/Mechanism Mechanism/Context: Yes injury and Yes blunt trauma Onset/Context/Timing Onset: Today and Hours Context: Sudden Onset Timing: Continuous Quality of Pain: Sharp Current Severity: Moderate Maximum Severity: Moderate Associated Symptoms Associated Symptoms: Negative for Parasthesia, Weakness or Loss of Funtion Narrative Narrative: 38-year-old female rolled her right ankle complaining of ankle and proximal foot pain. No prior history or surgery. No other injuries. She did not fall to the ground. Prior similar symptoms: Yes Recent Illness/Hospitalization: No PFSH PFSH Medical History no medical history no medical history Home Medications ?Medication ?Instructions ?Recorded ?Last Taken ?Type ibuprofen 600 mg tablet 600 mg PO 4X/DAY PRN Pain 1- 10 Or 06/09/20 Unknown Rx Fever #20 tabs Allergy/AdvReac Type Severity Reaction Status Date / Time acetaminophen (From Vicodin) AdvReac Nausea Verified 04/08/24 03:23 hydrocodone (From Vicodin) AdvReac Nausea Verified 04/08/24 03:23 Social History household members: significant other Smoking Status: Former smoker substance use type: does not use ROS ROS ED ROS Narrative Denies recent illness. Constitutional Constitutional ED: Denies chills or fever(s) Eyes Eyes: Denies blurry vision ENT ENT ED: Denies ear pain Cardiovascular Cardiovascular: Denies chest pain Respiratory/Chest Respiratory/Chest: Denies cough or dyspnea Gastrointestinal Gastrointestinal: Denies abdominal pain Genitourinary Genitourinary ED: Denies dysuria Musculoskeletal Musculoskeletal: Denies arthralgias Integumentary Denies abscess Neurologic Neurologic: Denies headache(s) Psychiatric Psychiatric: Denies anxiety Endocrine Endocrinology: Denies polydipsia Hematologic/Lymphatic Hematologic/Lymphatic: Denies easy bleeding Allergic/Immunologic Allergic/Immunologic ED: Denies mouth swelling EXAM Physical Exam Narrative Exam Narrative: Well-appearing 38-year-old female. Sitting upright in bed. Vital signs are stable afebrile. H EENT exam pupils round reactive light. No trauma. Moist mucous membranes. Neck nontender. Back nontender. Lungs clear. Heart regular rhythm rate about 95 no murmur. Chest wall and ribs are nontender. Abdomen soft nontender. Pelvic girdle intact. Moving all 4 extremities. Neurovascularly intact. Normal bellman strength. Normal dorsi plantarflexion. Right ankle tenderness on the lateral malleolus and proximal right lateral foot. Mild swelling. DP pulse intact. Medial malleolus minimally tender. Achilles tendon intact. She has pain but she is able to do dorsi plantarflexion. She is able to wiggle her toes. She has normal touch sensation. Skin is intact. Neurologically she is awake and alert no focal motor or sensory deficits. Const Vital Signs: 04/08/24 03:20 Temperature 98.5 F Temperature Source Oral Pulse Rate 98 Respiratory Rate 18 Blood Pressure 148/85 H Blood Pressure Mean 106 Pulse Ox 98 Oxygen Delivery Method Room Air Positive well nourished and well developed; Negative for cachectic, contractures or unkempt General Appearance ED: well developed and NAD; Negative for unkempt, cachectic or contractures Nutritional Appearance: Negative for cachectic HEENT Reports moist mucous membranes normocephalic and atraumatic Eyes PERRL Neck full ROM and supple Chest Wall inspection of chest normal and palpation of chest normal Resp normal respiratory effort, no retractions and clear to auscultation bilaterally Cardio regular rate, regular rhythm, S1 normal heart sound, S2 normal heart sound and no murmurs Rate: Negative for bradycardia or tachycardic Rhythm: Negative for abnormal rhythm Bruits: Negative for other GI non-distended and no masses Palpation: soft; Negative for tender, guarding or rebound tenderness present Back/Spine no CVA tenderness General Back: Negative for CVA tenderness Cervical Spine: Negative for cervical spine tenderness Thoracic Spine / Upper Back: Negative for thoracic spinal tenderness Lumbar Spine / Lower Back: Negative for lumbar spinal tenderness Extremity normal to inspection and full ROM Extremity Narrative: Except right ankle mild tenderness mild swelling laterally. No deformity. Skin intact. Normal DP pulse. Achilles tendon intact. Able to do dorsi and plantarflexion. Able to wiggle her toes. Normal touch sensation. There is mild swelling and tenderness to the right lateral proximal foot. No gross bony deformity. General Extremety ED: Yes weight-bearing difficulty General Extremity: weight-bearing difficulty Neuro oriented x3, CN's II-XII intact bilaterally and moves all extremities Sensorium / Orientation: alert, oriented to person, oriented to place and oriented to time; Negative for orientation impaired or confused Motor Exam: strength 5/5 throughout Psych mental status grossly normal Appearance: Negative for unkempt Skin no wounds Lesions: no lesions Rashes: no rashes Trauma: Negative for abrasion, laceration or puncture MDM MDM MDM Narrative Medical decision making narrative: 38-year-old female rolled her right foot and ankle complaining of pain. X-ray being obtained. She already took ibuprofen about 2 hours ago. She be given some Tylenol. Repeat exam she is tender where the lucency is on the x-ray of the base of the fifth metatarsal. This will be treated as a nondisplaced fracture. She will be placed in a walking boot. Ice and elevate. Tylenol and Motrin. Follow-up with podiatry. History & Record Review Discussion w/independent historian: Patient Radiography Diagnostic Testing: Right ankle x-ray, 3 views, interpreted by myself shows no acute fracture. No dislocation. Right foot x-ray, 3 views, interpreted by myself shows there is a lucency in the base of the fifth metatarsal consistent with a nondisplaced fracture. That is also where the patient is tender and swollen. It will be treated as a fracture. I did go over the x-rays with the patient. Discharge Plan Triage Chief Complaint: Lower Extremity Injury ED Provider: Donavan Sorensen Dx/Rx/DC Orders Clinical Impression: Ankle sprain, Closed fracture of fifth metatarsal bone, Contusion of foot Instructions: ED Fracture, Foot Prescriptions: No Action ibuprofen 600 MG tablet 600 mg PO 4X/DAY PRN (Reason: Pain 1-10 Or Fever) Qty: 20 0RF Primary Care Provider: Care Physician,No Primary Referrals: Mike Gillis DPM [Med Staff - Active Staff] - As soon as possible Care Physician,No Primary [Primary Care Provider] - Activity Restrictions/Additional Instructions: Where you are most tender and swollen is consistent on the x-ray with a nondisplaced fracture of your fifth metatarsal. The bone in your foot coming off your little toe. Ice and elevate to decrease pain and swelling. Motrin for pain and swelling and Tylenol for pain. Use the walking boot to walk. If it is too uncomfortable to put pressure on your foot walk on your heel. Call and follow-up with the test department helper for further evaluation. Print Language: [place]i Disposition Disposition: Home, Self Care
--- NOTE | 2024-04-08 03:30 | RAD_ITS ---
PROCEDURE: ANKLE MIN 3 VIEWS REASON FOR EXAM: Fall. Pain. TECHNIQUE: 3 views of the right ankle COMPARISON: None FINDINGS: Anatomic alignment. No definite widening of the ankle mortise. Nondisplaced fracture involving the base of the 5th metatarsal, partially imaged. Remaining visualized osseous structures appear intact. Plantar calcaneal spurs noted. Overlying soft tissues appear intact. RAD/Ankle min 3 Views IMPRESSION: Acute nondisplaced fracture involving the base of the 5th metatarsal, partially imaged. No additional fractures or dislocations are identified. Reading Location: [facility]
--- NOTE | 2024-04-08 03:30 | RAD_ITS ---
PROCEDURE: FOOT MIN 3 VIEWS REASON FOR EXAM: Fall. Foot pain. TECHNIQUE: 3 view(s) of the right foot foot COMPARISON: None. FINDINGS: RIGHT FOOT: Mild pes planus. Os navicularis. Acute appearing transverse fracture involving the base of the 5th metatarsal, without displacement/Wood fracture. No additional fractures or dislocations are identified. Minimal spurring involving the distal 1st metatarsal head. No bony destructive lesions are identified. Overlying soft tissues appear intact. RAD/Foot min 3 Views IMPRESSION: Acute nondisplaced fracture involving the base of the 5th metatarsal/joints fra cture. Reading Location: [facility]
[2024-04-08] MEDS: Acetaminophen 500 MG Tablet 1000 MG PO (03:44)
[2024-04-08 03:51] VITALS: BP 114/62; PULSE 64; RESP 18; TEMP 36.7; O2SAT 100
== END 2024-04-08 03:56 | disposition home or self-care (01) ==
PROVIDERS: Emergency Provider Emergency Medicine; Visit Provider Emergency Medicine
DX: S93.401A Sprain of unspecified ligament of right ankle, initial encounter (principal); S90.31XA Contusion of right foot, initial encounter; S92.354A Nondisplaced fracture of fifth metatarsal bone, right foot, initial encounter for closed fracture; Z87.891 Personal history of nicotine dependence; X58.XXXA Exposure to other specified factors, initial encounter
CPT/HCPCS: 73610; 73630; 99283

== ENCOUNTER 2024-10-03 17:03 | Emergency (ER) | payer BC, SELFPAY ==
[2024-10-03 17:04] VITALS: BP 145/85; PULSE 70; RESP 18; TEMP 36.8; O2SAT 99; BMI 28.1
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
--- OUTSIDE RECORDS SUMMARY | 2024-10-03 17:29 | XMS RPT_ITS | CCD ---
Author Organization [facility] Care Team Providers Care Cement Finishing Supervisor Name Role Phone Logan Alexander MD Primary Care Provider [phone] Unavailable Primary Care Provider Unavailabl e [facility] FAST FOOD ASSISTANT RESTAURANT MANAGER.DANIEL, Antonio Primary Care Provider [phone] [facility] FAST FOOD ASSISTANT RESTAURANT MANAGER.DANIEL, Antonio Primary Care Provider [phone] Unavailable Primary Care Provider UnavailDonavan Espinoza Attending Unavailable Care Physician, No Primary Primary Care Unava ilable [facility] FAST FOOD ASSISTANT RESTAURANT MANAGER.ASSISTED LIVING HOME DIRECTOR, Antonio Primary Care Provider [phone] SANFORD, ANTONIO Primary Care Unavailable TESTRAKE, ADRIANA Referring Unavailable TESTRAKE, ADRIANA Attending Unavailable SANF[facility], ANTONIO Primary Care Unavailable HARRISON, MELISSA Attending Unavailable SANFORD, ANTONIO Primary Care Unavailable HARRISON, MELISSA Referring Unavailable SANFORD, ANTONIO Primary Care Unavailable REGALADO, NATALIE Attending Unavailable [facility]FORD, ANTONIO Primary Care Unavailable REGALADO, NATALIE Referring Unavailable TESTRAKE, ADRIANA Attending Unavailable [facility], ANTONIO Primary Care Unavailable TESTRAKE, ADRIANA Referring Unavailable SANFORD, ANTONIO Primary Care Unavailable SAN[facility], ANTONIO Primary Care Unavailable TESTRAKE, ADRIANA Referring Unavailable SAN[facility]ORD, ANTONIO Primary Care Unavailable HARRISON, MELISSA Referring Unavailable [facility], ANTONIO Primary Care Unavailable TESTRAKE, ADRIANA Referring Unavailable [facility], ANTONIO Primary Care Unavailable SELF Referring Unavailable SANFORD, ANTONIO Attending Unavailable SANFORD, ANTONIO Primary Care Unavailable SAN[facility]ORD, ANTONIO Referring Unavailable [facility], ANTONIO Primary Care Unavailable REGALADO, NATALIE Referring Unavailable TESTRAKE, ADRIANA Attending Unavailable SAN[facility]ORD, ANTONIO Primary Care Unavailable TESTRAKE, ADRIANA Referring Unavailable SANFORD, ANTONIO Primary Care Unavailable SANFORD, ANTONIO Primary Care Unavailable REGALADO, NATALIE Referring Unavailable TESTRAKE, ADRIANA Attending Unavailable [facility], ANTONIO Primary Care Unavailable TESTRAKE, ADRIANA Referring Unavailable ANTONIO CHRISTINA Primary Care Unavailable TESTADRIANA JONES Referring Unavailable ANTONIO CHRISTINA Primary Care Unavailable ADRIANA YATES Attending Unavailable Allergies Allergy Classification Reported Allergen(s) Allergy Type Date of Onset Reaction(s) Facility (20 sources) HYDROcodone; Translations: [HYDROCODONE] Drug Allergy 06-21-2017 [facility] (20 sources) Acetaminophen; Translations: [ACETAMINOPHEN] Drug Allergy 06-21-2017 [facility] Work Phone: (1 source) Acetaminophen Drug Allergy 04-08-2024 [facility] (1 source) HYDROcodone Drug Allergy 04-08-2024 [facility] Medications Current Medications Medication Drug Class(es) Dates Sig (Normalized) Sig (Original) acetaminophen 325 mg / oxyCODONE hydrochloride 5 mg oral tablet (20 sources) Opioid Agonist Start: 04-12-2024 End: 04-19-2024 take 1 tablet by mouth every six hours as needed for pain oxyCODONE-acetamin ophen (PERCOCET) 5-325 mg tablet Indications: Sprain of right ankle, unspecified ligament, subsequent encounter , Closed fracture of base of fifth metatarsal bone at metaphyseal-diaphy seal junction with routine healing, subsequent encounter , Contusion of right foot, subsequent encounter Take 1 tablet by mouth every 6 hours as needed for pain for up to 7 days. 28 tablet 04/12/2024 04/19/2024 Active oxyCODONE-acetam inophen (PERCOCET) 5-325 mg tablet Take by mouth every 8 hours as needed for pain. 0 Active amoxicillin 80 mg/ml / clavulanate 11.4 mg/ml oral suspension (3 sources) Penicillin-class Antibacterial Start: 04-20-2024 End: 04-30-2024 take 10.9 mL by mouth twice daily amoxicillin-clavulanic acid (AUGMENTIN) 400-57 mg/5 mL suspension Indications: Acute non-recurrent streptococcal tonsillitis Take 10.9 mL by mouth two times a day for 10 days. 218 mL 04/20/2024 04/30/2024 Active atogepant (QULIPTA) 10 mg tablet (20 sources) Start: 09-24-2023 take 1 tablet by mouth once daily atogepant (QULIPTA) 10 mg tablet Indications: Persistent headaches , Intractable migraine with aura with status migrainosus Take 1 tablet (10 mg) by mouth once daily. 90 tablet 2 09/24/2023 Active Start: 07-25-2023 End: 09-24-2023 take 1 tablet by mouth once daily atogepant (QULIPTA) 10 mg tablet Indications: Persistent headaches , Intractable migraine with aura with status migrainosus Take 1 tablet (10 mg) by mouth once daily. 30 tablet 2 07/25/2023 09/24/2023 Discontinued Start: 07-25-2023 take 1 tablet by allan th once daily atogepant (QULIPTA) 10 mg tablet Indications: Persistent headaches , Intractable migraine with aura with status migrainosus Take 1 tablet (10 mg) by mouth once daily. 30 tablet 2 07/25/2023 Active 24 hr buPROPion hydrochloride 150 mg extended release oral tablet (20 sources) Aminoketone Start: 09-26-2023 take 1 tablet by mouth once daily buPROPion XL (WELLBUTRIN XL) 150 mg 24 hr tablet Take 1 tablet by mouth once daily. 30 tablet 3 09/26/2023 Active cyclobenzaprine hydrochloride 10 mg oral tablet (4 sources) Muscle Relaxant Start: 08-16-2022 End: 09-24-2023 take 1 tablet by mouth three times daily as needed for pain cyclobenzaprine (FLEXERIL) 10 mg tablet Indications: Chronic right shoulder pain Take 1 tablet by mouth three times daily as needed for muscle spasm or pain. 30 tablet 2 08/16/2022 09/24/2023 Discontinued Comment on above: Take 1 tablet by allan th three times daily as needed for muscle spasm or pain. doxycycline monohydrate 100 mg oral tablet (1 source) Tetracycline-class Drug Start: 08-10-2021 End: 08-17-2021 take 1 tablet by mouth twice daily doxycycline monohydrate 100 mg tablet Indications: Sinobronchitis Take 1 tablet by mouth twice daily for 7 days. 14 tablet 0 08/10/2021 08/17/2021 Active Comment on above: Take 1 tablet by allan th twice daily for 7 days. ibuprofen 600 mg oral tablet (3 sources) Nonsteroidal Anti-inflammatory Drug Start: 06-09-2020 take 600 mg by mouth four times daily Ibuprofen Active 600 MG PO 4 TIMES DAILY June 09, 2020 12:00am meloxicam 15 mg oral tablet (11 sources) Nonsteroidal Anti-inflammatory Drug Start: 07-21-2024 End: 08-20-2024 take 1 tablet by mouth once daily meloxicam (MOBIC) 15 mg tablet Take 1 tablet by mouth once daily. 30 tablet 07/21/2024 08/20/2024 Active Start: 04-12-2024 End: 05-12-2024 take 1 tablet by mouth once daily as needed for pain meloxicam (MOBIC) 15 mg tablet Indications: Sprain of right ankle, unspecified ligament, subsequent encounter , Closed fracture of base of fifth metatarsal bone at metaphyseal-diaphyseal junction with routine healing, subsequent encounter , Contusion of right foot, subsequent encounter Take 1 tablet by mouth once daily. as needed for pain. Take with food. 30 tablet 04/12/2024 05/12/2024 Start: 06-13-2020 End: 03-29-2021 take 1 tablet by mouth once daily at mealtime meloxicam (MOBIC) 15 mg tablet Take 1 tablet by mouth once daily. With food. 30 tablet 1 06/13/2020 03/29/2021 Discontinued (Course of therapy completed) ondansetron 4 mg disintegrating oral tablet (20 sources) Serotonin-3 Receptor Antagonist Start: 01-25-2022 End: 10-08-2022 take 1 tablet by mouth every six hours as needed for nausea ondansetron orally disintegrating (ZOFRAN ODT) 4 mg disintegrating tablet Indications: Intractable migraine with aura with status migrainosus Take 1 tablet by mouth every 6 hours as needed for nausea/vomiting. 30 tablet 1 10/08/2022 Active Comment on above: Take 1 tablet by allan th every 6 hours as needed for nausea/vomiting. SUMAtriptan 100 mg oral tablet (20 sources) Serotonin-1b and Serotonin-1d Receptor Agonist Start: 02-18-2023 End: 07-23-2023 take 1 tablet by mouth every two hours as needed for headache, then take 1 tablet by mouth every twenty-four hours as needed for headache SUMAtriptan (IMITREX) 100 mg tablet Indications: Intractable migraine with aura with status migrainosus TAKE 1 TABLET (100 MG) BY MOUTH NEEDED FOR MIGRAINE HEADACHE (SEE ADMINISTRATION INSTRUCTIONS). IF SYMPTOMS PERSIST OR RETURN, MAY REPEAT DOSE AFTER 2 HOURS. MAXIMUM DOSE: 100 MG/DOSE 200 MG PER 24 HOURS. 10 tablet 5 07/23/2023 Active Start: 01-25-2022 End: 06-13-2022 take 1 tablet by mouth every IDENTIFIERS: Name and Date of confirmed by patient verbally. FALL SCREENING: Has the patient had 2 falls in the last year or 1 fall with injury or currently using an Ambulatory Assistive Device (Walker, Cane, Wheelchair, Crutches, etc.)? No PATIENT GENDER DATA: Assigned female at . status: : No status: NO. PATIENT RELEVANT IMPLANT DATA REVIEWED: Yes PATIENT PRESENTS WITH AN IMPLANTABLE OR ATTACHED THERMAL ENGINEER: No RADIOLOGY DEPARTMENT: General X-ray: Exam(s) Completed: Lower Extremity X-Ray(s): Foot, Right PERIPHERAL IV DATA: Not applicable SIGNED BY: Samantha Aguirre, RT(R) July 08, 2024 3:07 PM [facility] 06-29-2024 Note HNO ID: [id number] Author: AFTAB COLEMAN RN Service: ? Author Type: Registered Nurse Type: Progress Notes Filed: 06/29/2024 10:50 Note Text: Per Dr. Yates, Linda was provided with Powerstep Original, size 11-11.5 Womens, and instructed/educated in its application, wear, and care. All questions were answered, and patient was able to demonstrate competence with the necessary skills to utilize the above equipment. Aftab Coleman RN [facility] 06-24-2024 Note HNO ID: [id number] Author: ADRIANA YATES, ? Service: ? Author Type: Physician Type: Progress Notes Filed: 06/24/2024 10:42 Note Text: Renetta Mckeon is a 38-year-old female presenting for follow-up of a left foot fracture. Left Foot Fracture: - Minimal pain; denies pain with palpation of the left fifth metatarsal. - Currently wearing a boot; no concerns or issues reported. - Off work since March; nervous about returning to work and wearing a steel-toed boot. - Work involves standing for 8-12 hours a day. - Family history of flat feet. Musculoskeletal: (+) minimal left foot pain PAST MEDICAL HISTORY Diagnosis Date Carpal tunnel syndrome, unspecified upper limb Epilepsy (HCC) Recurrent cold sores Current Outpatient Medications Medication Sig Dispense Refill oxyCODONE-acetaminophen (PERCOCET) 5-325 mg tablet Take by mouth every 8 hours as needed for pain. 0 buPROPion XL (WELLBUTRIN XL) 150 mg 24 hr tablet Take 1 tablet by mouth once daily. 30 tablet 3 atogepant (QULIPTA) 10 mg tablet Take 1 tablet (10 mg) by mouth once daily. 90 tablet 2 SUMAtriptan (IMITREX) 100 mg tablet TAKE 1 TABLET (100 MG) BY MOUTH NEEDED FOR MIGRAINE HEADACHE (SEE ADMINISTRATION INSTRUCTIONS). IF SYMPTOMS PERSIST OR RETURN, MAY REPEAT DOSE AFTER 2 HOURS. MAXIMUM DOSE: 100 MG/DOSE 200 MG PER 24 HOURS. 10 tablet 5 ondansetron orally disintegrating (ZOFRAN ODT) 4 mg disintegrating tablet Take 1 tablet by mouth every 6 hours as needed for nausea/vomiting. 30 tablet 1 valACYclovir (VALTREX) 1 gram 2 tablets at onset of cold sore, then repeat 2 tablets in 12 hours and repeat again on day 2 24 tablet 3 No current facility-administered medications for this visit. Family History Problem Relation Age of Onset Diabetes Mother Kidney Disease Father Hypertension Father Diabetes Father Heart Father Diabetes Maternal Grandfather Diabetes Paternal Grandmother Hypertension Paternal Grandmother Kidney Disease Paternal Grandmother Hypertension Paternal Grandfather Kidney Disease Paternal Grandfather Objective Last menstrual period 09/13/2023. - Cardiovascular: Dorsalis pedis and posterior tibial pulses palpable bilaterally; capillary refill time <5 seconds; skin temperature warm to cool. - Skin: No open sores or nodes bilaterally. - Musculoskeletal: - Left Foot: - No pain with palpation of the fifth metatarsal. Labs: Tests: Imaging: (06/24/2024) Left Foot X-ray: - Non-displaced avulsion fracture of the left fifth metatarsal - Increased sclerotic appearance consistent with healing - Bridging callus formation (06/03/2024) Left Foot X-ray: - Non-displaced avulsion fracture of the left fifth metatarsal - Fracture line faintly visible, indicating early healing changes (04/13/2024) Left Foot X-ray: - Non-displaced avulsion fracture of the left fifth metatarsal 1. Closed fracture of base of fifth metatarsal bone at metaphyseal-diaphyseal junction with routine healing, subsequent encounter (S99.199D) - X-rays from June 24, 2024, compared to June 03, 2024, show a non-displaced avulsion fracture of the left fifth metatarsal with increased sclerotic appearance consistent with healing and bridging calluses noted. - No tenderness with palpation of the fifth metatarsal on physical exam. - Transition to a supportive tennis shoe (Hoka, Regalado, Asics, Nike) with an [id number] orthotic insert over the next week. - Gradual increase in shoe wear time: 1 hour on day one, increasing by one hour each subsequent day, returning to the boot after each period. - Avoid non-supportive footwear (Hey Dudes, Crocs, flip-flops). - Monitor for pain; return to boot if pain occurs. - Scheduled follow-up x-ray on July 08, 2024, to assess further healing. - Tentative return to work date set for July 12, 2024, with potential extension to July 25, 2024, based on x-ray results and patient's comfort. Attestation Recording using [employer] software for draft documentation of the visit was discussed with the patient/authorized customer support representative; all questions welcomed and answered. Patient/authorized customer support representative agreed to proceed Adriana Yates DPM [facility] 06-24-2024 History of Presen t illness Narrative Subjective Linda is a 38-year-old female presenting for follow-up of a left foot fracture. Left Foot Fracture: - Minimal pain; denies pain with palpation of the left fifth metatarsal. - Currently wearing a boot; no concerns or issues reported. - Off work since March; nervous about returning to work and wearing a steel-toed boot. - Work involves standing for 8-12 hours a day. - Family history of flat feet. Musculoskeletal: (+) minimal left foot pain PAST MEDICAL HISTORY Diagnosis Date Carpal tunnel syndrome, unspecified upper limb Epilepsy (HCC) Recurrent cold sores Current Outpatient Medications Medication Sig Dispense Refill oxyCODONE-acetaminophen (PERCOCET) 5-325 mg tablet Take by mouth every 8 hours as needed for pain. 0 buPROPion XL (WELLBUTRIN XL) 150 mg 24 hr tablet Take 1 tablet by mouth once daily. 30 tablet 3 atogepant (QULIPTA) 10 mg tablet Take 1 tablet (10 mg) by mouth once daily. 90 tablet 2 SUMAtriptan (IMITREX) 100 mg tablet TAKE 1 TABLET (100 MG) BY MOUTH NEEDED FOR MIGRAINE HEADACHE (SEE ADMINISTRATION INSTRUCTIONS). IF SYMPTOMS PERSIST OR RETURN, MAY REPEAT DOSE AFTER 2 HOURS. MAXIMUM DOSE: 100 MG/DOSE 200 MG PER 24 HOURS. 10 tablet 5 ondansetron orally disintegrating (ZOFRAN ODT) 4 mg disintegrating tablet Take 1 tablet by mouth every 6 hours as needed for nausea/vomiting. 30 tablet 1 valACYclovir (VALTREX) 1 gram 2 tablets at onset of cold sore, then repeat 2 tablets in 12 hours and repeat again on day 2 24 tablet 3 No current facility-administered medications for this visit. Family History Problem Relation Age of Onset Diabetes Mother Kidney Disease Father Hypertension Father Diabetes Father Heart Father Diabetes Maternal Grandfather Diabetes Paternal Grandmother Hypertension Paternal Grandmother Kidney Disease Paternal Grandmother Hypertension Paternal Grandfather Kidney Disease Paternal Grandfather Objective Last menstrual period 09/13/2023. - Cardiovascular: Dorsalis pedis and posterior tibial pulses palpable bilaterally; capillary refill time <5 seconds; skin temperature warm to cool. - Skin: No open sores or nodes bilaterally. - Musculoskeletal: - Left Foot: - No pain with palpation of the fifth metatarsal. Labs: Tests: Imaging: (06/24/2024) Left Foot X-ray: - Non-displaced avulsion fracture of the left fifth metatarsal - Increased sclerotic appearance consistent with healing - Bridging callus formation (06/03/2024) Left Foot X-ray: - Non-displaced avulsion fracture of the left fifth metatarsal - Fracture line faintly visible, indicating early healing changes (04/13/2024) Left Foot X-ray: - Non-displaced avulsion fracture of the left fifth metatarsal 1. Closed fracture of base of fifth metatarsal bone at metaphyseal-diaphyseal junction with routine healing, subsequent encounter (S99.199D) - X-rays from June 24, 2024, compared to June 03, 2024, show a non-displaced avulsion fracture of the left fifth metatarsal with increased sclerotic appearance consistent with healing and bridging calluses noted. - No tenderness with palpation of the fifth metatarsal on physical exam. - Transition to a supportive tennis shoe (Hoka, Regalado, Asics, Nike) with an [id number] orthotic insert over the next week. - Gradual increase in shoe wear time: 1 hour on day one, increasing by one hour each subsequent day, returning to the boot after each period. - Avoid non-supportive footwear (Hey Dudes, Crocs, flip-flops). - Monitor for pain; return to boot if pain occurs. - Scheduled follow-up x-ray on July 08, 2024, to assess further healing. - Tentative return to work date set for July 12, 2024, with potential extension to July 25, 2024, based on x-ray results and patient's comfort. Attestation Recording using [employer] software for draft documentation of the visit was discussed with the patient/authorized customer support representative; all questions welcomed and answered. Patient/authorized customer support representative agreed to proceed Adriana Yates DPM Patient presents with: Right Foot - Established Patient, Follow Up, Fracture Patient presents for follow up of right 5th metatarsal base fracture. XRay prior to appointment. Denies any pain at this time. Ambulating with pneumatic walking boot. MARIE 06/03/24 documented in this encounter [facility] 06-24-2024 Instructions Adriana Yates - 06/24/2024 9:59 AM EDT You will begin transitioning from your boot to a supportive tennis shoe (such as Hoka, Regalado, Asics, or Nike) with an [id number] orthotic insert to help reduce stress on your foot. Today, wear the shoe with the insert for 1 hour, then switch back to your boot. Tomorrow, increase the duration to 2 hours in the shoe; continue increasing the time progressively (e.g., Friday: 3 hours, then 4 and 5 hours) to gradually adjust. Gradually increase your activity (e.g., walking around home or to run errands); if you experience pain, return to your boot. A final x-ray is scheduled for July 08 to check on your healing progress. documented in this encounter [facility] 06-24-2024 Note HNO ID: [id number] Author: AFTAB COLEMAN, RN Service: ? Author Type: Registered Nurse Type: Progress Notes Filed: 06/24/2024 10:42 Note Text: Patient presents with: Right Foot - Established Patient, Follow Up, Fracture Patient presents for follow up of right 5th metatarsal base fracture. XRay prior to appointment. Denies any pain at this time. Ambulating with pneumatic walking boot. MARIE 06/03/24 [facility] 06-24-2024 History of Presen t illness Narrative Radiology Service Progress Note PATIENT NAME: Linda Brown DATE OF SERVICE: June 24, 2024 TIME: 9:21 AM PATIENT IDENTITY VERIFICATION COMPLETED USING TWO (2) IDENTIFIERS: Name and Date of confirmed by patient verbally. FALL SCREENING: Has the patient had 2 falls in the last year or 1 fall with injury or currently using an Ambulatory Assistive Device (Walker, Cane, Wheelchair, Crutches, etc.)? No PATIENT GENDER DATA: Assigned female at . status: : No status: NO. PATIENT RELEVANT IMPLANT DATA REVIEWED: Not Applicable PATIENT PRESENTS WITH AN IMPLANTABLE OR ATTACHED THERMAL ENGINEER: No RADIOLOGY DEPARTMENT: General X-ray: Exam(s) Completed: Lower Extremity X-Ray(s): Foot, Right and Wt. Bearing PERIPHERAL IV DATA: Not applicable SIGNED BY: RT Ailin(R) June 24, 2024 9:21 AM documented in this encounter [facility] 06-24-2024 Note HNO ID: [id number] Author: CHRISTA CORTÉS RT(R) Service: Radiology Author Type: Technologist Type: Progress Notes Filed: 06/24/2024 09:28 Note Text: Radiology Service Progress Note PATIENT NAME: Linda Brown DATE OF SERVICE: June 24, 2024 TIME: 9:21 AM PATIENT IDENTITY VERIFICATION COMPLETED USING TWO (2) IDENTIFIERS: Name and Date of confirmed by patient verbally. FALL SCREENING: Has the patient had 2 falls in the last year or 1 fall with injury or currently using an Ambulatory Assistive Device (Walker, Cane, Wheelchair, Crutches, etc.)? No PATIENT GENDER DATA: Assigned female at . status: : No status: NO. PATIENT RELEVANT IMPLANT DATA REVIEWED: Not Applicable PATIENT PRESENTS WITH AN IMPLANTABLE OR ATTACHED THERMAL ENGINEER: No RADIOLOGY DEPARTMENT: General X-ray: Exam(s) Completed: Lower Extremity X-Ray(s): Foot, Right and Wt. Bearing PERIPHERAL IV DATA: Not applicable SIGNED BY: RT Ailin(R) June 24, 2024 9:21 AM [facility] 06-08-2024 Telephone encounter Note Patient has been identified by name and date of : Yes, Provider Adriana Yates Date 06/08/2024 Time 948 Type of form: FMLA Form received via: Walk in When form is completed, fax form to fax number provided. Form has been forwarded to: Provider's desk. Provider name: Adriana Boyer LPN [facility] 06-08-2024 Miscellaneous Notes Patient has been identified by name and date of : Yes, Provider Adriana Yates Date 06/08/2024 Time 948 Type of form: FMLA Form received via: Walk in When form is completed, fax form to fax number provided. Form has been forwarded to: Provider's desk. Provider name: Adriana Boyer LPN Forms completed and submit to number provided. Lorenza Boyer LPN Patient has been identified by name and date of : Yes, Provider Adriana Yates Date 06/03/2024 Time 4:55 Type of form: FMLA Form received via: Fax When form is completed, fax form to fax number provided. Form has been forwarded to: Provider's desk. Provider name: Adriana Boyer LPN Patient is asking if we are able to send a letter to [employer] stating that patient is to remain off of work through July 12 so she is able to extend her FMLA? Annette Day LPN documented in this encounter [facility] 06-04-2024 Telephone encounter Note Forms completed and submit to number provided. Lorenza Boyer LPN [facility] 06-03-2024 Telephone encounter Note Patient has been identified by name and date of : Yes, Provider Adriana Yates Date 06/03/2024 Time 4:55 Type of form: FMLA Form received via: Fax When form is completed, fax form to fax number provided. Form has been forwarded to: Provider's desk. Provider name: Adriana Jeanie Boyer LPN [facility] 06-03-2024 Telephone encounter Note Patient is asking if we are able to send a letter to [employer] stating that patient is to remain off of work through July 12 so she is able to extend her FMLA? Annette Day LPN [facility] 06-03-2024 Note HNO ID: [id number] Author: LORENZA BOYER LPN Service: ? Author Type: LICENSED NURSE Type: Progress Notes Filed: 06/03/2024 11:07 Note Text: Per Dr. Yates, Linda was provided with donjoy aircast, size M, and instructed/educated in its application, wear, and care. All questions were answered, and patient was able to demonstrate competence with the necessary skills to utilize the above equipment. Billed to [employer]. Lorenza Boyer LPN [facility] 06-03-2024 Note HNO ID: [id number] Author: ADRIANA YATES, ? Service: ? Author Type: Physician Type: Progress Notes Filed: 06/03/2024 11:05 Note Text: FOLLOW UP PODIATRIC OFFICE VISIT Chief Complaint: This 38 year old who presents for follow up:right fifth metatarsal fracture Patient presents to clinic for follow-up right 5th metatarsal fracture She denies any pain She remains in boot She has new xray to review PAIN EVALUATION No data found in the last 1 encounters. Hemoglobin A1C Date Value Ref Range Status 09/24/2023 5.4 4.3 - 5.6 % Final Comment: [place] [employer] guidelines indicate that patients with HgbA1c in the range 5.7-6.4% are at increased risk for development of diabetes, and intervention by lifestyle modification may be beneficial. HgbA1c greater or equal to 6.5% is considered diagnostic of diabetes. 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 buPROPion XL (WELLBUTRIN XL) 150 mg 24 hr tablet Take 1 tablet by mouth once daily. atogepant (QULIPTA) 10 mg tablet Take 1 tablet (10 mg) by mouth once daily. SUMAtriptan (IMITREX) 100 mg tablet TAKE 1 TABLET (100 MG) BY MOUTH NEEDED FOR MIGRAINE HEADACHE (SEE ADMINISTRATION INSTRUCTIONS). IF SYMPTOMS PERSIST OR RETURN, MAY REPEAT DOSE AFTER 2 HOURS. MAXIMUM DOSE: 100 MG/DOSE 200 MG PER 24 HOURS. ondansetron orally disintegrating (ZOFRAN ODT) 4 mg disintegrating tablet Take 1 tablet by mouth every 6 hours as needed for nausea/vomiting. valACYclovir (VALTREX) 1 gram 2 tablets at onset of cold sore, then repeat 2 tablets in 12 hours and repeat again on day 2 No current facility-administered medications for this visit. ALLERGIES Allergen Reactions Acetaminophen GI Upset Hydrocodone GI Upset PAST SURGICAL HISTORY Procedure Laterality Date ESSURE 2013 PAST SURGICAL HISTORY OF [facility] Physical Exam: OBJECTIVE: Constitutional: Pt is a well developed 38 year old female who is alert, oriented, cooperative and in no apparent distress. Eyes: Following during examination. No redness or drainage. Respiratory: RR normal and nonlabored. Even breathing. No evidence of distress. Psychology: Patient is engaged during conversation. Normal affect and mood. Does not appear depressed or anxious. NVSI unchanged from previous visit. Dermatological: Nails 1-5 b/l are normal. Webspaces clean and dry 1-4 b/l. Skin appears well hydrated and supple. good color, texture, turgor. No open lesions present. No callosities present. Musculoskeletal/Orthopaedic: Patient has no pain to palpation of right fifth metatarsal Xray taken today and compared to past xrays shows healing fracture with fracture line less distinct ASSESSMENT: (S9.199D) Closed fracture of base of fifth metatarsal bone at metaphyseal-diaphyseal junction with routine healing, subsequent encounter (primary encounter diagnosis) PLAN: Discussed fracture of fifth metatarsal Fracture line is less distinct Would continue with boot. Patient reports that she is not fully compliant with boot at home. Would stress continued use of boot Repeat xrays in 3 weeks Will push out her return to work scheduled 06/14/24 to possibly 07/12/24 Follow-up in 3 weeks Adriana Yates DPM [facility] 06-03-2024 Note HNO ID: [id number] Author: LORENZA BOYER LPN Service: ? Author Type: LICENSED NURSE Type: Progress Notes Filed: 06/03/2024 11:05 Note Text: AMB ROOMING INTAKE FLOWSHEET DATA Patient presents with: Right Ankle - Established Patient, Follow Up, Pain, Swelling MARIE 05/13/2024 Lorenza Boyer LPN [facility] 05-28-2024 Telephone encounter Note Forms faxed to number provided. Patient notified. Lorenza Boyer LPN [facility] Work Phone: 05-28-2024 Miscellaneous Notes Forms faxed to number provided. Patient notified. Lorenza Boyer LPN Patient has been identified by name and date of : Yes, Provider Flo Date 05/28/2024 Time 1030 Type of form: FMLA Form received via: Walk in When form is completed, fax form to fax number provided. Form has been forwarded to: Provider's desk. Provider name: Adriana Boyer LPN Patient has been identified by name and date of : Yes, Provider [place] Date 05/18/2024 Time 1650 Type of form: FMLA Form received via: Fax When form is completed, fax form to fax number provided. Form has been forwarded to: Provider's desk. Provider name: Adriana Boyer LPN documented in this encounter [facility] 05-28-2024 Telephone encounter Note Patient has been identified by name and date of : Yes, Provider Flo Date 05/28/2024 Time 1030 Type of form: FMLA Form received via: Walk in When form is completed, fax form to fax number provided. Form has been forwarded to: Provider's desk. Provider name: Adriana Boyer LPN [facility] 05-18-2024 Telephone encounter Note Patient has been identified by name and date of : Yes, Provider [place] Date 05/18/2024 Time 1650 Type of form: FMLA Form received via: Fax When form is completed, fax form to fax number provided. Form has been forwarded to: Provider's desk. Provider name: Adriana Jeanie Boyer LPN [facility] 05-14-2024 Note HNO ID: [id number] Author: TOMMIE OG PA Service: ? Author Type: Physician Gate Tender Type: Progress Notes Filed: 05/14/2024 12:24 Note Text: [facility] Renetta Brown is a 38 year old female. Patient presents with: Sore Throat HPI 38-year-old female presents for drainage x 2 days. Patient states she has felt sick for the past couple of days. She has cough, postnasal drainage, runny nose and sore throat. She states that she had strep about a month ago. She completed all of this medication and was feeling better up until couple of days ago. She has not had any fevers, chills or bodyaches. Daughter sick with similar symptoms. No other complaint PAST MEDICAL HISTORY Diagnosis Date Carpal tunnel syndrome, unspecified upper limb Epilepsy (HCC) Recurrent cold sores PAST SURGICAL HISTORY Procedure Laterality Date ESSURE 2013 PAST SURGICAL HISTORY OF [facility] ALLERGIES Acetaminophen and Hydrocodone MEDICATIONS oxyCODONE-acetaminophen (PERCOCET) 5-325 mg tablet Take by mouth every 8 hours as needed for pain. buPROPion XL (WELLBUTRIN XL) 150 mg 24 hr tablet Take 1 tablet by mouth once daily. atogepant (QULIPTA) 10 mg tablet Take 1 tablet (10 mg) by mouth once daily. SUMAtriptan (IMITREX) 100 mg tablet TAKE 1 TABLET (100 MG) BY MOUTH NEEDED FOR MIGRAINE HEADACHE (SEE ADMINISTRATION INSTRUCTIONS). IF SYMPTOMS PERSIST OR RETURN, MAY REPEAT DOSE AFTER 2 HOURS. MAXIMUM DOSE: 100 MG/DOSE 200 MG PER 24 HOURS. ondansetron orally disintegrating (ZOFRAN ODT) 4 mg disintegrating tablet Take 1 tablet by mouth every 6 hours as needed for nausea/vomiting. valACYclovir (VALTREX) 1 gram 2 tablets at onset of cold sore, then repeat 2 tablets in 12 hours and repeat again on day 2 FAMILY HISTORY Problem Relation Age of Onset Diabetes Mother Kidney Disease Father Hypertension Father Diabetes Father Heart Father Diabetes Maternal Grandfather Diabetes Paternal Grandmother Hypertension Paternal Grandmother Kidney Disease Paternal Grandmother Hypertension Paternal Grandfather Kidney Disease Paternal Grandfather Social History Tobacco Use Smoking status: Former Current packs/day: 0.50 Types: Cigarettes Smokeless tobacco: Never Substance Use Topics Alcohol use: Yes Comment: Occasionally Drug use: No Review of Systems Constitutional: Negative for chills and fever. HENT: Positive for congestion, postnasal drip and sore throat. Negative for ear pain. Respiratory: Positive for cough. Negative for shortness of breath. Cardiovascular: Negative for chest pain. Gastrointestinal: Negative for diarrhea and vomiting. Objective BP 90/61 Pulse 80 Temp 36.4 ?C (97.6 ?F) Resp 16 LMP 09/13/2023 (Exact Date) SpO2 98% Physical Exam Vitals and nursing note reviewed. Constitutional: General: She is not in acute distress. Appearance: Normal appearance. She is not toxic-appearing. HENT: Right Ear: Tympanic membrane and ear canal normal. Left Ear: Tympanic membrane and ear canal normal. Nose: Congestion present. Mouth/Throat: Mouth: Mucous membranes are moist. Pharynx: Uvula midline. Posterior oropharyngeal erythema present. Tonsils: No tonsillar exudate or tonsillar abscesses. 2+ on the right. 2+ on the left. Eyes: Conjunctiva/sclera: Conjunctivae normal. Cardiovascular: Rate and Rhythm: Normal rate and regular rhythm. Pulmonary: Effort: Pulmonary effort is normal. Breath sounds: Normal breath sounds. Skin: General: Skin is warm and dry. Neurological: Mental Status: She is alert. {ASSESSMENT/PLAN: 1. Sore throat - ICD9: 462, ICD10: J02.9 (primary diagnosis) - suspect viral - Group A strep molecular testing negative - Discussed supportive care treatment with fluids, rest and analgesia. - The patient may also use warm salt water gargles, throat lozenges and/or OTC throat spray as needed. - STREP A MOLECULAR (POC) 2. URI, acute - ICD9: 465.9, ICD10: J06.9 - Discussed viral etiology and rationale for treatment. - Symptomatic treatment with prn analgesia - Supportive care with fluids and rest -Declines COVID/flu swab Diagnosis and treatment plan were discussed and questions were answered to the patient's satisfaction. Pt acknowledged understanding of concepts and follow up plan. Specific signs and symptoms that would indicate the need for higher level of care were discussed in detail warranting prompt ER evaluation. JACKY Saini History and Record Review External record(s) reviewed: prior outpatient record. Findings from review of outpatient records: Seen 1 month ago, positive for Differential Diagnoses - Viral URI is more likely for the following reason(s): suggested by HANDP - Strep pharyngitis is less likely for the following reason(s): laboratory studies not suggestive Additional Tests or Interventions The following testing was considered but ultimately not selected af (more content not included)... [facility] 05-14-2024 History of Presen t illness Narrative [facility] Subjective Linda Brown is a 38 year old female. Patient presents with: Sore Throat HPI 38-year-old female presents for drainage x 2 days. Patient states she has felt sick for the past couple of days. She has cough, postnasal drainage, runny nose and sore throat. She states that she had strep about a month ago. She completed all of this medication and was feeling better up until couple of days ago. She has not had any fevers, chills or bodyaches. Daughter sick with similar symptoms. No other complaint PAST MEDICAL HISTORY Diagnosis Date Carpal tunnel syndrome, unspecified upper limb Epilepsy (HCC) Recurrent cold sores PAST SURGICAL HISTORY Procedure Laterality Date ESSURE 2013 PAST SURGICAL HISTORY OF [facility] ALLERGIES Acetaminophen and Hydrocodone MEDICATIONS oxyCODONE-acetaminophen (PERCOCET) 5-325 mg tablet Take by mouth every 8 hours as needed for pain. buPROPion XL (WELLBUTRIN XL) 150 mg 24 hr tablet Take 1 tablet by mouth once daily. atogepant (QULIPTA) 10 mg tablet Take 1 tablet (10 mg) by mouth once daily. SUMAtriptan (IMITREX) 100 mg tablet TAKE 1 TABLET (100 MG) BY MOUTH NEEDED FOR MIGRAINE HEADACHE (SEE ADMINISTRATION INSTRUCTIONS). IF SYMPTOMS PERSIST OR RETURN, MAY REPEAT DOSE AFTER 2 HOURS. MAXIMUM DOSE: 100 MG/DOSE 200 MG PER 24 HOURS. ondansetron orally disintegrating (ZOFRAN ODT) 4 mg disintegrating tablet Take 1 tablet by mouth every 6 hours as needed for nausea/vomiting. valACYclovir (VALTREX) 1 gram 2 tablets at onset of cold sore, then repeat 2 tablets in 12 hours and repeat again on day 2 FAMILY HISTORY Problem Relation Age of Onset Diabetes Mother Kidney Disease Father Hypertension Father Diabetes Father Heart Father Diabetes Maternal Grandfather Diabetes Paternal Grandmother Hypertension Paternal Grandmother Kidney Disease Paternal Grandmother Hypertension Paternal Grandfather Kidney Disease Paternal Grandfather Social History Tobacco Use Smoking status: Former Current packs/day: 0.50 Types: Cigarettes Smokeless tobacco: Never Substance Use Topics Alcohol use: Yes Comment: Occasionally Drug use: No Review of Systems Constitutional: Negative for chills and fever. HENT: Positive for congestion, postnasal drip and sore throat. Negative for ear pain. Respiratory: Positive for cough. Negative for shortness of breath. Cardiovascular: Negative for chest pain. Gastrointestinal: Negative for diarrhea and vomiting. Objective BP 90/61 Pulse 80 Temp 36.4 C (97.6 F) Resp 16 LMP 09/13/2023 (Exact Date) SpO2 98% Physical Exam Vitals and nursing note reviewed. Constitutional: General: She is not in acute distress. Appearance: Normal appearance. She is not toxic-appearing. HENT: Right Ear: Tympanic membrane and ear canal normal. Left Ear: Tympanic membrane and ear canal normal. Nose: Congestion present. Mouth/Throat: Mouth: Mucous membranes are moist. Pharynx: Uvula midline. Posterior oropharyngeal erythema present. Tonsils: No tonsillar exudate or tonsillar abscesses. 2+ on the right. 2+ on the left. Eyes: Conjunctiva/sclera: Conjunctivae normal. Cardiovascular: Rate and Rhythm: Normal rate and regular rhythm. Pulmonary: Effort: Pulmonary effort is normal. Breath sounds: Normal breath sounds. Skin: General: Skin is warm and dry. Neurological: Mental Status: She is alert. {ASSESSMENT/PLAN: 1. Sore throat - ICD9: 462, ICD10: J02.9 (primary diagnosis) - suspect viral - Group A strep molecular testing negative - Discussed supportive care treatment with fluids, rest and analgesia. - The patient may also use warm salt water gargles, throat lozenges and/or OTC throat spray as needed. - STREP A MOLECULAR (POC) 2. URI, acute - ICD9: 465.9, ICD10: J06.9 - Discussed viral etiology and rationale for treatment. - Symptomatic treatment with prn analgesia - Supportive care with fluids and rest -Declines COVID/flu swab Diagnosis and treatment plan were discussed and questions were answered to the patient's satisfaction. Pt acknowledged understanding of concepts and follow up plan. Specific signs and symptoms that would indicate the need for higher level of care were discussed in detail warranting prompt ER evaluation. JACKY Saini History and Record Review External record(s) reviewed: prior outpatient record. Findings from review of outpatient records: Seen 1 month ago, positive for Differential Diagnoses - Viral URI is more likely for the following reason(s): suggested by H&P - Strep pharyngitis is less likely for the following reason(s): laboratory studies not suggestive Additional Tests or Interventions The following testing was considered but ultimately not selected after discussion with patient/family: COVID/flu/RSV swab offered, patient declined Disposition The patient was discharged. OTC Medications were advised: Tylenol, cough and cold medication Procedures documented in this encounter [facility] 05-13-2024 History of Presen t illness Narrative Radiology Service Progress Note PATIENT NAME: Linda Brown DATE OF SERVICE: May 13, 2024 TIME: 11:07 AM PATIENT IDENTITY VERIFICATION COMPLETED USING TWO (2) IDENTIFIERS: Name and Date of confirmed by patient verbally. FALL SCREENING: Has the patient had 2 falls in the last year or 1 fall with injury or currently using an Ambulatory Assistive Device (Walker, Cane, Wheelchair, Crutches, etc.)? No PATIENT GENDER DATA: Assigned female at . status: : No status: NO. PATIENT RELEVANT IMPLANT DATA REVIEWED: Yes PATIENT PRESENTS WITH AN IMPLANTABLE OR ATTACHED THERMAL ENGINEER: No RADIOLOGY DEPARTMENT: General X-ray: Exam(s) Completed: Lower Extremity X-Ray(s): Foot, Right PERIPHERAL IV DATA: Not applicable SIGNED BY: RT Kendrick(R) May 13, 2024 11:07 AM documented in this encounter [facility] 05-13-2024 Note HNO ID: [id number] Author: RUBINA ARROYO RT(Ester) Service: ? Author Type: Bread Wrapping Machine Feeder Type: Progress Notes Filed: 05/13/2024 11:17 Note Text: Radiology Service Progress Note PATIENT NAME: Linda Brown DATE OF SERVICE: May 13, 2024 TIME: 11:07 AM PATIENT IDENTITY VERIFICATION COMPLETED USING TWO (2) IDENTIFIERS: Name and Date of confirmed by patient verbally. FALL SCREENING: Has the patient had 2 falls in the last year or 1 fall with injury or currently using an Ambulatory Assistive Device (Walker, Cane, Wheelchair, Crutches, etc.)? No PATIENT GENDER DATA: Assigned female at . status: : No status: NO. PATIENT RELEVANT IMPLANT DATA REVIEWED: Yes PATIENT PRESENTS WITH AN IMPLANTABLE OR ATTACHED THERMAL ENGINEER: No RADIOLOGY DEPARTMENT: General X-ray: Exam(s) Completed: Lower Extremity X-Ray(s): Foot, Right PERIPHERAL IV DATA: Not applicable SIGNED BY: RT Kendrick(R) May 13, 2024 11:07 AM [facility] 05-13-2024 Instructions Adriana Yates - 05/13/2024 10:32 AM EDT Continue with boot Repeat xrays today and again in 3 weeks Will call with results. documented in this encounter [facility] 05-13-2024 Note HNO ID: [id number] Author: ADRIANA YATES, ? Service: ? Author Type: Physician Type: Progress Notes Filed: 05/13/2024 10:36 Note Text: FOLLOW UP PODIATRIC OFFICE VISIT Chief Complaint: This 38 year old who presents for follow up:fifth metatarsal fracture Patient presents to clinic for follow-up right 5th metatarsal fracture Patient denies pain but does have fear of placing weight on the foot Continues with boot PAIN EVALUATION No data found in the last 1 encounters. Hemoglobin A1C Date Value Ref Range Status 09/24/2023 5.4 4.3 - 5.6 % Final Comment: [place] [employer] guidelines indicate that patients with HgbA1c in the range 5.7-6.4% are at increased risk for development of diabetes, and intervention by lifestyle modification may be beneficial. HgbA1c greater or equal to 6.5% is considered diagnostic of diabetes. 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 buPROPion XL (WELLBUTRIN XL) 150 mg 24 hr tablet Take 1 tablet by mouth once daily. atogepant (QULIPTA) 10 mg tablet Take 1 tablet (10 mg) by mouth once daily. SUMAtriptan (IMITREX) 100 mg tablet TAKE 1 TABLET (100 MG) BY MOUTH NEEDED FOR MIGRAINE HEADACHE (SEE ADMINISTRATION INSTRUCTIONS). IF SYMPTOMS PERSIST OR RETURN, MAY REPEAT DOSE AFTER 2 HOURS. MAXIMUM DOSE: 100 MG/DOSE 200 MG PER 24 HOURS. ondansetron orally disintegrating (ZOFRAN ODT) 4 mg disintegrating tablet Take 1 tablet by mouth every 6 hours as needed for nausea/vomiting. valACYclovir (VALTREX) 1 gram 2 tablets at onset of cold sore, then repeat 2 tablets in 12 hours and repeat again on day 2 No current facility-administered medications for this visit. ALLERGIES Allergen Reactions Acetaminophen GI Upset Hydrocodone GI Upset PAST SURGICAL HISTORY Procedure Laterality Date ESSURE 2013 PAST SURGICAL HISTORY OF [place] Physical Exam: OBJECTIVE: Constitutional: Pt is a well developed 38 year old female who is alert, oriented, cooperative and in no apparent distress. Eyes: Following during examination. No redness or drainage. Respiratory: RR normal and nonlabored. Even breathing. No evidence of distress. Psychology: Patient is engaged during conversation. Normal affect and mood. Does not appear depressed or anxious. NVSI unchanged from previous visit. Dermatological: Nails 1-5 b/l are normal. Webspaces clean and dry 1-4 b/l. Skin appears well hydrated and supple. good color, texture, turgor. No open lesions present. No callosities present. Musculoskeletal/Orthopaedic: Patient has pain to palpation of right 5th metatarsal base Xrays ordered ASSESSMENT: (S90.199D) Closed fracture of base of fifth metatarsal bone at metaphyseal-diaphyseal junction with routine healing, subsequent encounter (primary encounter diagnosis) PLAN: Reviewed prior xrays from March and April 5th Fracture line still visible Continue with boot Repeat xrays today and again in 3 weeks Will call with results Adriana Yates DPM [facility] 05-13-2024 History of Presen t illness Narrative FOLLOW UP PODIATRIC OFFICE VISIT Chief Complaint: This 38 year old who presents for follow up:fifth metatarsal fracture Patient presents to clinic for follow-up right 5th metatarsal fracture Patient denies pain but does have fear of placing weight on the foot Continues with boot PAIN EVALUATION No data found in the last 1 encounters. Hemoglobin A1C Date Value Ref Range Status 09/24/2023 5.4 4.3 - 5.6 % Final Comment: [place] [employer] guidelines indicate that patients with HgbA1c in the range 5.7-6.4% are at increased risk for development of diabetes, and intervention by lifestyle modification may be beneficial. HgbA1c greater or equal to 6.5% is considered diagnostic of diabetes. 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 buPROPion XL (WELLBUTRIN XL) 150 mg 24 hr tablet Take 1 tablet by mouth once daily. atogepant (QULIPTA) 10 mg tablet Take 1 tablet (10 mg) by mouth once daily. SUMAtriptan (IMITREX) 100 mg tablet TAKE 1 TABLET (100 MG) BY MOUTH NEEDED FOR MIGRAINE HEADACHE (SEE ADMINISTRATION INSTRUCTIONS). IF SYMPTOMS PERSIST OR RETURN, MAY REPEAT DOSE AFTER 2 HOURS. MAXIMUM DOSE: 100 MG/DOSE 200 MG PER 24 HOURS. ondansetron orally disintegrating (ZOFRAN ODT) 4 mg disintegrating tablet Take 1 tablet by mouth every 6 hours as needed for nausea/vomiting. valACYclovir (VALTREX) 1 gram 2 tablets at onset of cold sore, then repeat 2 tablets in 12 hours and repeat again on day 2 No current facility-administered medications for this visit. ALLERGIES Allergen Reactions Acetaminophen GI Upset Hydrocodone GI Upset PAST SURGICAL HISTORY Procedure Laterality Date ESSURE 2013 PAST SURGICAL HISTORY OF [facility] Physical Exam: OBJECTIVE: Constitutional: Pt is a well developed 38 year old female who is alert, oriented, cooperative and in no apparent distress. Eyes: Following during examination. No redness or drainage. Respiratory: RR normal and nonlabored. Even breathing. No evidence of distress. Psychology: Patient is engaged during conversation. Normal affect and mood. Does not appear depressed or anxious. NVSI unchanged from previous visit. Dermatological: Nails 1-5 b/l are normal. Webspaces clean and dry 1-4 b/l. Skin appears well hydrated and supple. good color, texture, turgor. No open lesions present. No callosities present. Musculoskeletal/Orthopaedic: Patient has pain to palpation of right 5th metatarsal base Xrays ordered ASSESSMENT: (S99.199D) Closed fracture of base of fifth metatarsal bone at metaphyseal-diaphyseal junction with routine healing, subsequent encounter (primary encounter diagnosis) PLAN: Reviewed prior xrays from March and April 5th Fracture line still visible Continue with boot Repeat xrays today and again in 3 weeks Will call with results Adriana Yates DPM AMB ROOMING INTAKE FLOWSHEET DATA Patient presents with: Right Ankle - Pain, Swelling, Established Patient, Follow Up Lorenza Boyer LPN documented in this encounter [facility] 05-13-2024 Note HNO ID: [id number] Author: LORENZA BOYER LPN Service: ? Author Type: LICENSED NURSE Type: Progress Notes Filed: 05/13/2024 10:36 Note Text: AMB ROOMING INTAKE FLOWSHEET DATA Patient presents with: Right Ankle - Pain, Swelling, Established Patient, Follow Up Lorenza Boyer LPN [facility] 04-28-2024 History of Presen t illness Narrative Radiology Service Progress Note PATIENT NAME: Linda Brown DATE OF SERVICE: April 28, 2024 TIME: 11:37 AM PATIENT IDENTITY VERIFICATION COMPLETED USING TWO (2) IDENTIFIERS: Name and Date of confirmed by patient verbally. FALL SCREENING: Has the patient had 2 falls in the last year or 1 fall with injury or currently using an Ambulatory Assistive Device (Walker, Cane, Wheelchair, Crutches, etc.)? Yes, Patient High Risk for Falls What interventions were put in place to prevent falls during this visit? Increased Observations by Caregivers PATIENT GENDER DATA: Assigned female at . status: : No status: NO. PATIENT RELEVANT IMPLANT DATA REVIEWED: Not Applicable PATIENT PRESENTS WITH AN IMPLANTABLE OR ATTACHED THERMAL ENGINEER: No RADIOLOGY DEPARTMENT: General X-ray: Exam(s) Completed: Lower Extremity X-Ray(s): Foot, Right PERIPHERAL IV DATA: Not applicable SIGNED BY: ANA LUISA Staples) April 28, 2024 11:37 AM documented in this encounter [facility] 04-28-2024 Note HNO ID: [id number] Author: LUIZ DUDLEY RT(R) Service: ? Author Type: Technologist Type: Progress Notes Filed: 04/28/2024 11:37 Note Text: Radiology Service Progress Note PATIENT NAME: Linda Brown DATE OF SERVICE: April 28, 2024 TIME: 11:37 AM PATIENT IDENTITY VERIFICATION COMPLETED USING TWO (2) IDENTIFIERS: Name and Date of confirmed by patient verbally. FALL SCREENING: Has the patient had 2 falls in the last year or 1 fall with injury or currently using an Ambulatory Assistive Device (Walker, Cane, Wheelchair, Crutches, etc.)? Yes, Patient High Risk for Falls What interventions were put in place to prevent falls during this visit? Increased Observations by Caregivers PATIENT GENDER DATA: Assigned female at . status: : No status: NO. PATIENT RELEVANT IMPLANT DATA REVIEWED: Not Applicable PATIENT PRESENTS WITH AN IMPLANTABLE OR ATTACHED THERMAL ENGINEER: No RADIOLOGY DEPARTMENT: General X-ray: Exam(s) Completed: Lower Extremity X-Ray(s): Foot, Right PERIPHERAL IV DATA: Not applicable SIGNED BY: Luiz Octavia, RT(R) April 28, 2024 11:37 AM [facility] 04-21-2024 Telephone encounter Note Forms completed and faxed to number provided. Lorenza Boyer LPN [facility] Work Phone: 04-21-2024 Miscellaneous Notes Forms completed and faxed to number provided. Lorenza Boyer LPN Called patient to inform her that we received FMLA form today 04/14/2024. Forms will be completed and sent to number provided. Informed patient that per policy we have 7-10 business days to complete forms. Patient verbalized understanding. Lorenza Boyer LPN Patient calling in asking if her FMLA paperwork could be filled out as quickly as possible. Lola Kitchen RN Forms received in PCP office, per request faxed forms to Dr. Yates. Samia Fischer LPN Patient calls and states that [employer] was supposed to fax paperwork to provider. Patient asking if this was received? Patient had seen Dr. Yates for issue and is asking if paperwork can be forwarded to office? Patient states that paperwork was faxed yesterday. Please let patient know if this was not received. Please review and advise, Suha Wood RN documented in this encounter [facility] 04-20-2024 History of Presen t illness Narrative This note was created using [employer]. Subjective Linda Brown is a 38 year old female. Patient is a 38-year-old female complains of fever, chills, body aches and sore throat that she began to develop earlier today. Patient reports no congestion, sinus pressure or ear pain. Patient describes an overall feeling of intense fatigue and illness. Sore Throat Associated symptoms include coughing. Review of Systems Constitutional: Positive for chills, fatigue and fever. HENT: Positive for sore throat. Respiratory: Positive for cough. Musculoskeletal: Positive for myalgias. All other systems reviewed and are negative. Objective BP 124/76 Pulse 96 Temp (!) 38 C (100.4 F) Resp 18 Wt 90.4 kg (199 lb 4.7 oz) LMP 09/13/2023 (Exact Date) SpO2 98% BMI 32.17 kg/m Physical Exam Vitals and nursing note reviewed. Constitutional: Appearance: Normal appearance. She is normal weight. HENT: Head: Normocephalic and atraumatic. Right Ear: Tympanic membrane, ear canal and external ear normal. Left Ear: Tympanic membrane, ear canal and external ear normal. Nose: Nose normal. Mouth/Throat: Mouth: Mucous membranes are moist. Pharynx: Oropharynx is clear. No oropharyngeal exudate or posterior oropharyngeal erythema. Eyes: Extraocular Movements: Extraocular movements intact. Conjunctiva/sclera: Conjunctivae normal. Pupils: Pupils are equal, round, and reactive to light. Cardiovascular: Rate and Rhythm: Normal rate and regular rhythm. Pulses: Normal pulses. Heart sounds: Normal heart sounds. Pulmonary: Effort: Pulmonary effort is normal. Breath sounds: Normal breath sounds. Musculoskeletal: Cervical back: Normal range of motion and neck supple. Skin: General: Skin is warm and dry. Capillary Refill: Capillary refill takes less than 2 seconds. Neurological: General: No focal deficit present. Mental Status: She is alert and oriented to person, place, and time. Psychiatric: Mood and Affect: Mood normal. Behavior: Behavior normal. Thought Content: Thought content normal. Judgment: Judgment normal. Assessment and Plan Physical exam findings as noted above. Rapid strep test is positive. Patient states that she does not believe that she will be able to tolerate oral tablets or capsules due to pain and is requesting suspension. Patient was provided with a prescription for Augmentin 400-57 mg/5 mL and supportive care instructions were discussed. Patient verbalizes good understanding of same. CLINICAL IMPRESSION: Acute Streptococcal Tonsillitis ASSESSMENT/PLAN: 1. Sore throat - ICD9: 462, ICD10: J02.9 (primary diagnosis) - STREP A MOLECULAR (POC) 2. Acute non-recurrent streptococcal tonsillitis - ICD9: 034.0, ICD10: J03.00 - AMOXICILLIN 400 MG-POTASSIUM CLAVULANATE 57 MG/5 ML ORAL SUSPENSION Hayley Victoria PA-C documented in this encounter [facility] 04-20-2024 Note HNO ID: [id number] Author: HAYLEY VICTORIA PA-C Service: ? Author Type: Physician Gate Tender Type: Progress Notes Filed: 04/20/2024 17:13 Note Text: This note was created using [employer]. Subjective Linda Brown is a 38 year old female. Patient is a 38-year-old female complains of fever, chills, body aches and sore throat that she began to develop earlier today. Patient reports no congestion, sinus pressure or ear pain. Patient describes an overall feeling of intense fatigue and illness. Sore Throat Associated symptoms include coughing. Review of Systems Constitutional: Positive for chills, fatigue and fever. HENT: Positive for sore throat. Respiratory: Positive for cough. Musculoskeletal: Positive for myalgias. All other systems reviewed and are negative. Objective BP 124/76 Pulse 96 Temp (!) 38 ?C (100.4 ?F) Resp 18 Wt 90.4 kg (199 lb 4.7 oz) LMP 09/13/2023 (Exact Date) SpO2 98% BMI 32.17 kg/m? Physical Exam Vitals and nursing note reviewed. Constitutional: Appearance: Normal appearance. She is normal weight. HENT: Head: Normocephalic and atraumatic. Right Ear: Tympanic membrane, ear canal and external ear normal. Left Ear: Tympanic membrane, ear canal and external ear normal. Nose: Nose normal. Mouth/Throat: Mouth: Mucous membranes are moist. Pharynx: Oropharynx is clear. No oropharyngeal exudate or posterior oropharyngeal erythema. Eyes: Extraocular Movements: Extraocular movements intact. Conjunctiva/sclera: Conjunctivae normal. Pupils: Pupils are equal, round, and reactive to light. Cardiovascular: Rate and Rhythm: Normal rate and regular rhythm. Pulses: Normal pulses. Heart sounds: Normal heart sounds. Pulmonary: Effort: Pulmonary effort is normal. Breath sounds: Normal breath sounds. Musculoskeletal: Cervical back: Normal range of motion and neck supple. Skin: General: Skin is warm and dry. Capillary Refill: Capillary refill takes less than 2 seconds. Neurological: General: No focal deficit present. Mental Status: She is alert and oriented to person, place, and time. Psychiatric: Mood and Affect: Mood normal. Behavior: Behavior normal. Thought Content: Thought content normal. Judgment: Judgment normal. Assessment and Plan Physical exam findings as noted above. Rapid strep test is positive. Patient states that she does not believe that she will be able to tolerate oral tablets or capsules due to pain and is requesting suspension. Patient was provided with a prescription for Augmentin 400-57 mg/5 mL and supportive care instructions were discussed. Patient verbalizes good understanding of same. CLINICAL IMPRESSION: Acute Streptococcal Tonsillitis ASSESSMENT/PLAN: 1. Sore throat - ICD9: 462, ICD10: J02.9 (primary diagnosis) - STREP A MOLECULAR (POC) 2. Acute non-recurrent streptococcal tonsillitis - ICD9: 034.0, ICD10: J03.00 - AMOXICILLIN 400 MG-POTASSIUM CLAVULANATE 57 MG/5 ML ORAL SUSPENSION Hayley Victoria PA-C [facility] 04-14-2024 Telephone encounter Note Called patient to inform her that we received FMLA form today 04/14/2024. Forms will be completed and sent to number provided. Informed patient that per policy we have 7-10 business days to complete forms. Patient verbalized understanding. Lorenza Boyer LPN [facility] 04-14-2024 Telephone encounter Note Patient calling in asking if her FMLA paperwork could be filled out as quickly as possible. Lola Kitchen RN [facility] 04-13-2024 Telephone encounter Note Forms received in PCP office, per request faxed forms to Dr. Yates. Samia Fischer LPN [facility] 04-13-2024 Telephone encounter Note Patient calls and states that [employer] was supposed to fax paperwork to provider. Patient asking if this was received? Patient had seen Dr. Yates for issue and is asking if paperwork can be forwarded to office? Patient states that paperwork was faxed yesterday. Please let patient know if this was not received. Please review and advise, Suha Wood RN [facility] 04-13-2024 History of Presen t illness Narrative Radiology Service Progress Note PATIENT NAME: Linda Brown DATE OF SERVICE: April 13, 2024 TIME: 11:41 AM PATIENT IDENTITY VERIFICATION COMPLETED USING TWO (2) IDENTIFIERS: Name and Date of confirmed by patient verbally. FALL SCREENING: Has the patient had 2 falls in the last year or 1 fall with injury or currently using an Ambulatory Assistive Device (Walker, Cane, Wheelchair, Crutches, etc.)? No PATIENT GENDER DATA: Assigned female at . status: : No status: NO. PATIENT RELEVANT IMPLANT DATA REVIEWED: Not Applicable PATIENT PRESENTS WITH AN IMPLANTABLE OR ATTACHED THERMAL ENGINEER: No RADIOLOGY DEPARTMENT: General X-ray: Exam(s) Completed: Lower Extremity X-Ray(s): Foot, Right and Wt. Bearing PERIPHERAL IV DATA: Not applicable SIGNED BY: RT Ailin(R) April 13, 2024 11:41 AM documented in this encounter [facility] 04-13-2024 Note HNO ID: [id number] Author: CHRISTA CORTÉS RT(R) Service: Radiology Author Type: Technologist Type: Progress Notes Filed: 04/13/2024 11:52 Note Text: Radiology Service Progress Note PATIENT NAME: Linda Brown DATE OF SERVICE: April 13, 2024 TIME: 11:41 AM PATIENT IDENTITY VERIFICATION COMPLETED USING TWO (2) IDENTIFIERS: Name and Date of confirmed by patient verbally. FALL SCREENING: Has the patient had 2 falls in the last year or 1 fall with injury or currently using an Ambulatory Assistive Device (Walker, Cane, Wheelchair, Crutches, etc.)? No PATIENT GENDER DATA: Assigned female at . status: : No status: NO. PATIENT RELEVANT IMPLANT DATA REVIEWED: Not Applicable PATIENT PRESENTS WITH AN IMPLANTABLE OR ATTACHED THERMAL ENGINEER: No RADIOLOGY DEPARTMENT: General X-ray: Exam(s) Completed: Lower Extremity X-Ray(s): Foot, Right and Wt. Bearing PERIPHERAL IV DATA: Not applicable SIGNED BY: RT Ailin(R) April 13, 2024 11:41 AM [facility] 04-13-2024 Note HNO ID: [id number] Author: ADRIANA YATES, ? Service: ? Author Type: Physician Type: Progress Notes Filed: 04/13/2024 12:04 Note Text: Consultation requested by Dr. Regalado for an opinion regarding right foot fracture. My final recommendations will be communicated back to the requesting physician by way of shared Medical record or letter to requesting physician via [place] mail. Initial Podiatric Office Visit: Chief Complaint: This 38 year old female who presents with chief complaint:right foot injury HPI Patient presents to clinic for evaluation of right foot. Patient states that last Friday, she rolled her right foot resulting injury She presented to the [facility] and was told she fractured her fifth metatarsal Was placed in pneumatic boot and percocet. Patient states the pain is slightly improving. Still having a difficult time applying weight to the foot. 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 as needed for pain. Take with food. oxyCODONE-acetaminophen (PERCOCET) 5-325 mg tablet Take 1 tablet by mouth every 6 hours as needed for pain for up to 7 days. buPROPion XL (WELLBUTRIN XL) 150 mg 24 hr tablet Take 1 tablet by mouth once daily. atogepant (QULIPTA) 10 mg tablet Take 1 tablet (10 mg) by mouth once daily. SUMAtriptan (IMITREX) 100 mg tablet TAKE 1 TABLET (100 MG) BY MOUTH NEEDED FOR MIGRAINE HEADACHE (SEE ADMINISTRATION INSTRUCTIONS). IF SYMPTOMS PERSIST OR RETURN, MAY REPEAT DOSE AFTER 2 HOURS. MAXIMUM DOSE: 100 MG/DOSE 200 MG PER 24 HOURS. ondansetron orally disintegrating (ZOFRAN ODT) 4 mg disintegrating tablet Take 1 tablet by mouth every 6 hours as needed for nausea/vomiting. valACYclovir (VALTREX) 1 gram 2 tablets at onset of cold sore, then repeat 2 tablets in 12 hours and repeat again on day 2 No current facility-administered medications for this visit. ALLERGIES Allergen Reactions Acetaminophen GI Upset Hydrocodone GI Upset PAST SURGICAL HISTORY Procedure Laterality Date ESSURE 2013 PAST SURGICAL HISTORY OF [facility] FAMILY HISTORY Problem Relation Age of Onset Diabetes Mother Kidney Disease Father Hypertension Father Diabetes Father Heart Father Diabetes Maternal Grandfather Diabetes Paternal Grandmother Hypertension Paternal Grandmother Kidney Disease Paternal Grandmother Hypertension Paternal Grandfather Kidney Disease Paternal Grandfather Social History Tobacco Use Smoking status: Former Current packs/day: 0.50 Types: Cigarettes Smokeless tobacco: Never Substance Use Topics Alcohol use: Yes Comment: Occasionally Drug use: No REVIEW OF SYSTEMS GENERAL: Negative for Malaise, significant weight loss, fever RESPIRATORY: Negative for cough, wheezing and shortness of breath CARDIOVASCULAR: Negative for chest pain, leg swelling and palpitations GI: Negative for abdominal discomfort, blood in stools or black stools and change in bowel habits : Negative for dysuria, frequency and incontinence MUSCULOSKELETAL: Negative for joint pain or swelling, back pain, and muscle pain. SKIN: Negative for lesions, rash, and itching. HEMATOLOGY/LYMPHOLOGY Negative for prolonged bleeding, bruising easily, and swollen nodes. ENDOCRINE: Negative for cold or heat intolerance, polyuria, polydipsia and goiter. NEURO: negative Physical Exam: Constitutional: Pt is a well developed 38 year old female who is alert, oriented and cooperative Eyes: Following during examination. No redness or drainage. Respiratory: RR normal and nonlabored. Even breathing. No evidence of distress or shortness of breath. Psychology: Patient is engaged during conversation. Normal affect and mood. Does not appear depressed or anxious during encounter. Vascular: Dorsalis pedis and posterior tibial pulses palpable as b/l Capillary Fill time < 5 seconds to digits 1-5 b/l Skin temperature warm to warm proximal to distal b/l Hair growth present to digits Neurological: intact light touch/epicritic sensation b/l intact protective sensation no significant neurological deficits Dermatological: Nails 1-5 b/l appear normal. Webspaces clean and dry 1-4 b/l. Skin appears well hydrated and supple. good color, texture, turgor. No open lesions present. No callosities present. Musculoskeletal/Orthopaedic: Patient has pain to palpation of right 5th metatarsal shaft Radiographs: 3 views right foot ordered (more content not included)... [facility] 04-13-2024 History of Presen t illness Narrative Consultation requested by Dr. Regalado for an opinion regarding right foot fracture. My final recommendations will be communicated back to the requesting physician by way of shared Medical record or letter to requesting physician via [place] mail. Initial Podiatric Office Visit: Chief Complaint: This 38 year old female who presents with chief complaint:right foot injury HPI Patient presents to clinic for evaluation of right foot. Patient states that last Friday, she rolled her right foot resulting injury She presented to the [facility] and was told she fractured her fifth metatarsal Was placed in pneumatic boot and percocet. Patient states the pain is slightly improving. Still having a difficult time applying weight to the foot. 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 as needed for pain. Take with food. oxyCODONE-acetaminophen (PERCOCET) 5-325 mg tablet Take 1 tablet by mouth every 6 hours as needed for pain for up to 7 days. buPROPion XL (WELLBUTRIN XL) 150 mg 24 hr tablet Take 1 tablet by mouth once daily. atogepant (QULIPTA) 10 mg tablet Take 1 tablet (10 mg) by mouth once daily. SUMAtriptan (IMITREX) 100 mg tablet TAKE 1 TABLET (100 MG) BY MOUTH NEEDED FOR MIGRAINE HEADACHE (SEE ADMINISTRATION INSTRUCTIONS). IF SYMPTOMS PERSIST OR RETURN, MAY REPEAT DOSE AFTER 2 HOURS. MAXIMUM DOSE: 100 MG/DOSE 200 MG PER 24 HOURS. ondansetron orally disintegrating (ZOFRAN ODT) 4 mg disintegrating tablet Take 1 tablet by mouth every 6 hours as needed for nausea/vomiting. valACYclovir (VALTREX) 1 gram 2 tablets at onset of cold sore, then repeat 2 tablets in 12 hours and repeat again on day 2 No current facility-administered medications for this visit. ALLERGIES Allergen Reactions Acetaminophen GI Upset Hydrocodone GI Upset PAST SURGICAL HISTORY Procedure Laterality Date ESS2013 PAST SURGICAL HISTORY OF [facility] FAMILY HISTORY Problem Relation Age of Onset Diabetes Mother Kidney Disease Father Hypertension Father Diabetes Father Heart Father Diabetes Maternal Grandfather Diabetes Paternal Grandmother Hypertension Paternal Grandmother Kidney Disease Paternal Grandmother Hypertension Paternal Grandfather Kidney Disease Paternal Grandfather Social History Tobacco Use Smoking status: Former Current packs/day: 0.50 Types: Cigarettes Smokeless tobacco: Never Substance Use Topics Alcohol use: Yes Comment: Occasionally Drug use: No REVIEW OF SYSTEMS GENERAL: Negative for Malaise, significant weight loss, fever RESPIRATORY: Negative for cough, wheezing and shortness of breath CARDIOVASCULAR: Negative for chest pain, leg swelling and palpitations GI: Negative for abdominal discomfort, blood in stools or black stools and change in bowel habits : Negative for dysuria, frequency and incontinence MUSCULOSKELETAL: Negative for joint pain or swelling, back pain, and muscle pain. SKIN: Negative for lesions, rash, and itching. HEMATOLOGY/LYMPHOLOGY Negative for prolonged bleeding, bruising easily, and swollen nodes. ENDOCRINE: Negative for cold or heat intolerance, polyuria, polydipsia and goiter. NEURO: negative Physical Exam: Constitutional: Pt is a well developed 38 year old female who is alert, oriented and cooperative Eyes: Following during examination. No redness or drainage. Respiratory: RR normal and nonlabored. Even breathing. No evidence of distress or shortness of breath. Psychology: Patient is engaged during conversation. Normal affect and mood. Does not appear depressed or anxious during encounter. Vascular: Dorsalis pedis and posterior tibial pulses palpable as b/l Capillary Fill time < 5 seconds to digits 1-5 b/l Skin temperature warm to warm proximal to distal b/l Hair growth present to digits Neurological: intact light touch/epicritic sensation b/l intact protective sensation no significant neurological deficits Dermatological: Nails 1-5 b/l appear normal. Webspaces clean and dry 1-4 b/l. Skin appears well hydrated and supple. good color, texture, turgor. No open lesions present. No callosities present. Musculoskeletal/Orthopaedic: Patient has pain to palpation of right 5th metatarsal shaft Radiographs: 3 views right foot ordered April 13, 2024: I have personally reviewed and interpreted these XR myself: nondisplaced avulsion fracture ~11 mm distal to 5th metatarsal tuberosity ASSESSMENT: (S99.199D) Closed fracture of base of fifth metatarsal bone at metaphyseal-diaphyseal junction with routine healing, subsequent encounter (S90.31XD) Contusion of right foot, subsequent encounter PLAN: 1. History and physical examination performed. 2. XR reviewed with patient and interpreted today 3. Discussed fracture of right 5th metatarsal. Fracture is avulsion type, ~11 mm distal to tuberosity. Discussed both conservative vs surgical options. Patient is not interested in surgery 4. Suspect with this being an avulsion type fracture, should heal with conservative options. Would have patient continue with boot and repeat xrays in 2 weeks and 4 weeks. 5. Informed patient that she will likely be off work for minimum of 8 weeks given her current duties at [employer]. She will not be able to work with boot. Adriana Yates DPM Podiatry [address] [facility] [address] Dept: [phone] Dept AMB ROOMING INTAKE FLOWSHEET DATA Pain Pain Level: 9 Pain Location: Ankle-Right Description: Aching Duration Amount of Time: 6 Duration Units: Days Frequency: Continuous Intervention/Comfort measure: Reposition, Relaxation, Medication, Cold, Splinting Patient presents with: Right Ankle - Swelling, New, Pain Patient rolled ankle on Friday. Patient presents to office with boot on right ankle. Patient took percocet 15 minutes ago. Lorenza Boyer LPN documented in this encounter [facility] 04-13-2024 Note HNO ID: [id number] Author: LORENZA BOYER LPN Service: ? Author Type: LICENSED NURSE Type: Progress Notes Filed: 04/13/2024 12:04 Note Text: AMB ROOMING INTAKE FLOWSHEET DATA Pain Pain Level: 9 Pain Location: Ankle-Right Description: Aching Duration Amount of Time: 6 Duration Units: Days Frequency: Continuous Intervention/Comfort measure: Reposition, Relaxation, Medication, Cold, Splinting Patient presents with: Right Ankle - Swelling, New, Pain Patient rolled ankle on Friday. Patient presents to office with boot on right ankle. Patient took percocet 15 minutes ago. Lorenza Boyer LPN [facility] 04-12-2024 History of Presen t illness Narrative SUBJECTIVE: Depression Screening Never done Anxiety Screening Never done DTaP,Tdap,Td Vaccine(1 - Tdap) Never done Hepatitis B Vaccine(1 of 3 - 19+ 3-dose series) Never done Cervical Cancer Screening due on 09/26/2006 Influenza Vaccine(1) Never done Covid-19 Vaccine(2023- season) due on 10/26/2023 OTONIEL Borwn is a 38 year old female. PMH sinificant for ACTIVE PROBLEM LIST Epilepsy (Hcc) Recurrent Cold Sores Obesity, Class I, Bmi 30-34.9 Intractable Migraine With Aura With Status Migrainosus PCP: Antonio Christina APRN.DANIEL Presents today regarding foot pain. On arrival indicates she was seen at [facility] on April 08, 2024 for right ankle pain. She reports rolling her ankle. Exam was consistent with her injury. X-ray showed fracture of the right fifth metatarsal, nondisplaced. No ankle fracture. She was placed in a walking boot. She was advised to take [id number] medications. Today notes she was not referred to podiatry for appointment. Has continued to have pain increased with being on her foot too much. Has been wearing the boot. Has been icing periodically throughout the day. Ibuprofen and Tylenol [id number] helps somewhat. Pain is decreased somewhat from her ER visit. She work on her feet, needs forms completed for [employer] to be off work. Review of Systems Constitutional: Negative. Musculoskeletal: Positive for arthralgias. Objective BP 114/70 Pulse 80 Resp 16 Wt 92 kg (202 lb 13.2 oz) LMP 09/13/2023 (Exact Date) BMI 32.74 kg/m Physical Exam Vitals and nursing note reviewed. Constitutional: Appearance: Normal appearance. HENT: Head: Normocephalic and atraumatic. Eyes: Conjunctiva/sclera: Conjunctivae normal. Cardiovascular: Rate and Rhythm: Normal rate. Pulses: Dorsalis pedis pulses are 2+ on the right side and 2+ on the left side. Posterior tibial pulses are 2+ on the right side and 2+ on the left side. Pulmonary: Effort: Pulmonary effort is normal. Feet: Comments: ecchymosis and tender to palpation right lateral mid foot Skin: General: Skin is warm and dry. Neurological: General: No focal deficit present. Mental Status: She is alert and oriented to person, place, and time. ALLERGIES Allergen Reactions Acetaminophen GI Upset Hydrocodone GI Upset Medications buPROPion XL (WELLBUTRIN XL) 150 mg 24 hr tablet Take 1 tablet by mouth once daily. atogepant (QULIPTA) 10 mg tablet Take 1 tablet (10 mg) by mouth once daily. SUMAtriptan (IMITREX) 100 mg tablet TAKE 1 TABLET (100 MG) BY MOUTH NEEDED FOR MIGRAINE HEADACHE (SEE ADMINISTRATION INSTRUCTIONS). IF SYMPTOMS PERSIST OR RETURN, MAY REPEAT DOSE AFTER 2 HOURS. MAXIMUM DOSE: 100 MG/DOSE 200 MG PER 24 HOURS. ondansetron orally disintegrating (ZOFRAN ODT) 4 mg disintegrating tablet Take 1 tablet by mouth every 6 hours as needed for nausea/vomiting. valACYclovir (VALTREX) 1 gram 2 tablets at onset of cold sore, then repeat 2 tablets in 12 hours and repeat again on day 2 meloxicam (MOBIC) 15 mg tablet Take 1 tablet by mouth once daily. as needed for pain. Take with food. oxyCODONE-acetaminophen (PERCOCET) 5-325 mg tablet Take 1 tablet by mouth every 6 hours as needed for pain for up to 7 days. PAST MEDICAL HISTORY Diagnosis Date Carpal tunnel syndrome, unspecified upper limb Epilepsy (HCC) Recurrent cold sores Social History Tobacco Use Smoking status: Former Current packs/day: 0.50 Types: Cigarettes Smokeless tobacco: Never Substance Use Topics Alcohol use: Yes Comment: Occasionally Drug use: No ASSESSMENT/PLAN: 1. Sprain of right ankle, unspecified ligament, subsequent encounter - ICD9: V58.89, 845.00, ICD10: S93.401D (primary diagnosis) 2. Closed fracture of base of fifth metatarsal bone at metaphyseal-diaphyseal junction with routine healing, subsequent encounter - ICD9: V54.16, ICD10: S99.199D 3. Contusion of right foot, subsequent encounter - ICD9: V58.89, 924.20, ICD10: S90.31XD Will switch from ibuprofen to meloxicam. May take as needed Tylenol. Percocet for breakthrough pain. Make an appointment at her earliest convenience with podiatry or foot and ankle - CONSULT TO PODIATRY - CONSULT TO ORTHOPAEDICS - MELOXICAM 15 MG TABLET - OXYCODONE-ACETAMINOPHEN 5 MG-325 MG TABLET Natalie Regalado APRN.CNS Medical Decision Making: Problems: Low: Acute, uncomplicated illness or injury Data: Unique source(s) for external note(s) reviewed: 1 Unique test result(s) reviewed: 2 Risk: Low: Low risk from testing/treatment Moderate: Drug management Medical Decision Making Level: 4 - Moderate documented in this encounter [facility] 04-12-2024 Note HNO ID: [id number] Author: NATALIE REGALADO APRN.SKIN PILER Service: ? Author Type: Nurse Specialist Type: Progress Notes Filed: 04/12/2024 09:30 Note Text: SUBJECTIVE: Depression Screening Never done Anxiety Screening Never done DTaP,Tdap,Td Vaccine(1 - Tdap) Never done Hepatitis B Vaccine(1 of 3 - 19+ 3-dose series) Never done Cervical Cancer Screening due on 09/26/2006 Influenza Vaccine(1) Never done Covid-19 Vaccine(2023- season) due on 10/26/2023 HPI Linda Brown is a 38 year old female. 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 On arrival indicates she was seen at [facility] on April 08, 2024 for right ankle pain. She reports rolling her ankle. Exam was consistent with her injury. X-ray showed fracture of the right fifth metatarsal, nondisplaced. No ankle fracture. She was placed in a walking boot. She was advised to take [id number] medications. Today notes she was not referred to podiatry for appointment. Has continued to have pain increased with being on her foot too much. Has been wearing the boot. Has been icing periodically throughout the day. Ibuprofen and Tylenol [id number] helps somewhat. Pain is decreased somewhat from her ER visit. She work on her feet, needs forms completed for [employer] to be off work. Review of Systems Constitutional: Negative. Musculoskeletal: Positive for arthralgias. Objective BP 114/70 Pulse 80 Resp 16 Wt 92 kg (202 lb 13.2 oz) LMP 09/13/2023 (Exact Date) BMI 32.74 kg/m? Physical Exam Vitals and nursing note reviewed. Constitutional: Appearance: Normal appearance. HENT: Head: Normocephalic and atraumatic. Eyes: Conjunctiva/sclera: Conjunctivae normal. Cardiovascular: Rate and Rhythm: Normal rate. Pulses: Dorsalis pedis pulses are 2+ on the right side and 2+ on the left side. Posterior tibial pulses are 2+ on the right side and 2+ on the left side. Pulmonary: Effort: Pulmonary effort is normal. Feet: Comments: ecchymosis and tender to palpation right lateral mid foot Skin: General: Skin is warm and dry. Neurological: General: No focal deficit present. Mental Status: She is alert and oriented to person, place, and time. ALLERGIES Allergen Reactions Acetaminophen GI Upset Hydrocodone GI Upset Medications buPROPion XL (WELLBUTRIN XL) 150 mg 24 hr tablet Take 1 tablet by mouth once daily. atogepant (QULIPTA) 10 mg tablet Take 1 tablet (10 mg) by mouth once daily. SUMAtriptan (IMITREX) 100 mg tablet TAKE 1 TABLET (100 MG) BY MOUTH NEEDED FOR MIGRAINE HEADACHE (SEE ADMINISTRATION INSTRUCTIONS). IF SYMPTOMS PERSIST OR RETURN, MAY REPEAT DOSE AFTER 2 HOURS. MAXIMUM DOSE: 100 MG/DOSE 200 MG PER 24 HOURS. ondansetron orally disintegrating (ZOFRAN ODT) 4 mg disintegrating tablet Take 1 tablet by mouth every 6 hours as needed for nausea/vomiting. valACYclovir (VALTREX) 1 gram 2 tablets at onset of cold sore, then repeat 2 tablets in 12 hours and repeat again on day 2 meloxicam (MOBIC) 15 mg tablet Take 1 tablet by mouth once daily. as needed for pain. Take with food. oxyCODONE-acetaminophen (PERCOCET) 5-325 mg tablet Take 1 tablet by mouth every 6 hours as needed for pain for up to 7 days. PAST MEDICAL HISTORY Diagnosis Date Carpal tunnel syndrome, unspecified upper limb Epilepsy (HCC) Recurrent cold sores Social History Tobacco Use Smoking status: Former Current packs/day: 0.50 Types: Cigarettes Smokeless tobacco: Never Substance Use Topics Alcohol use: Yes Comment: Occasionally Drug use: No ASSESSMENT/PLAN: 1. Sprain of right ankle, unspecified ligament, subsequent encounter - ICD9: V58.89, 845.00, ICD10: S93.401D (primary diagnosis) 2. Closed fracture of base of fifth metatarsal bone at metaphyseal-diaphyseal junction with routine healing, subsequent encounter - ICD9: V54.16, ICD10: S99.199D 3. Contusion of right foot, subsequent encounter - ICD9: V58.89, 924.20, ICD10: S90.31XD Will switch from ibuprofen to meloxicam. May take as needed Tylenol. Percocet for breakthrough pain. Make an appointment at her earliest convenience with podiatry or foot and ankle - CONSULT TO PODIATRY - CONSULT TO ORTHOPAEDICS - MELOXICAM 15 MG TABLET - OXYCODONE-ACETAMINOPHEN 5 MG-325 MG TABLET Natalie Regalado APRN.SKIN PILER Medical Decision Making: Problems: Low: Acute, uncomplicated illness or injury Data: Unique source(s) for external note(s) reviewed: 1 Unique test result(s) reviewed: 2 Risk: Low: Low risk from testing/treatment Moderate: Drug management Medical Decision Making Level: 4 - Moderate [facility] 09-24-2023 History of Presen t illness Narrative SUBJECTIVE Linda Brown is a 37 year old female here today for a check up on her medical problems. Chief Complaint Patient presents with: Recheck Headache HPI Linda Brown is a 37 year old female. She is an established patient. Here today for follow up on migraine headaches. Started on Qulipta. States today that her migraines are some improved with the Qulipta. Sleeping better. Tolerating the medication well. No side effects. Wants to work on weight loss. Prior side effects with Topamax when use for headaches. 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 Her medications were reviewed today and her list is now up to date. Medications Current Outpatient Medications Medication Sig SUMAtriptan (IMITREX) 100 mg tablet TAKE 1 TABLET (100 MG) BY MOUTH NEEDED FOR MIGRAINE HEADACHE (SEE ADMINISTRATION INSTRUCTIONS). IF SYMPTOMS PERSIST OR RETURN, MAY REPEAT DOSE AFTER 2 HOURS. MAXIMUM DOSE: 100 MG/DOSE 200 MG PER 24 HOURS. ondansetron orally disintegrating (ZOFRAN ODT) 4 mg disintegrating tablet Take 1 tablet by mouth every 6 hours as needed for nausea/vomiting. valACYclovir (VALTREX) 1 gram 2 tablets at onset of cold sore, then repeat 2 tablets in 12 hours and repeat again on day 2 atogepant (QULIPTA) 10 mg tablet Take 1 tablet (10 mg) by mouth once daily. No current facility-administered medications for this visit. ALLERGIES Allergen Reactions Acetaminophen GI Upset Hydrocodone GI Upset ACTIVE PROBLEM LIST Obesity, Class I, Bmi 30-34.9 - 03/19/2022 Intractable Migraine With Aura With Status Migrainosus - 03/19/2022 Recurrent Cold Sores Epilepsy (Hcc) - 01/11/2014 Social History Tobacco Use Smoking status: Former Packs/day: .5 Types: Cigarettes Smokeless tobacco: Never Substance Use Topics Alcohol use: Yes Comment: Occasionally Drug use: No Review of Systems Respiratory: Negative. Cardiovascular: Negative. OBJECTIVE BP 106/78 Pulse 83 Wt 210 lb (95.3kg) SpO2 97% LMP 09/13/2023 Physical Exam Vitals and nursing note reviewed. Constitutional: General: She is awake. She is not in acute distress. Appearance: Normal appearance. She is well-developed and well-groomed. She is not ill-appearing, toxic-appearing or diaphoretic. HENT: Head: Normocephalic. Right Ear: External ear normal. Left Ear: External ear normal. Nose: Nose normal. Eyes: General: Vision grossly intact. Conjunctiva/sclera: Conjunctivae normal. Pupils: Pupils are equal, round, and reactive to light. Neck: Vascular: No JVD. Trachea: Trachea normal. Cardiovascular: Rate and Rhythm: Normal rate and regular rhythm. Pulses: Normal pulses. Heart sounds: Normal heart sounds. No murmur heard. Pulmonary: Effort: Pulmonary effort is normal. No accessory muscle usage, prolonged expiration or respiratory distress. Breath sounds: Normal breath sounds. Musculoskeletal: Cervical back: Neck supple. Skin: General: Skin is warm and dry. Capillary Refill: Capillary refill takes less than 2 seconds. Neurological: General: No focal deficit present. Mental Status: She is alert and oriented to person, place, and time. Mental status is at baseline. Psychiatric: Attention and Perception: Attention and perception normal. Mood and Affect: Mood and affect normal. Speech: Speech normal. Behavior: Behavior normal. Behavior is cooperative. Thought Content: Thought content normal. Cognition and Memory: Cognition and memory normal. Judgment: Judgment normal. ASSESSMENT/PLAN: 1. Intractable migraine with aura with status migrainosus - ICD9: 346.03, ICD10: G43.111 (primary diagnosis) Stable, improved, continue current medication at current dose. We did discuss there is room to increase if needed in the future if symptoms worsen/progress. - ATOGEPANT 10 MG TABLET 2. Persistent headaches - ICD9: 784.0, ICD10: R51.9 See #1 - ATOGEPANT 10 MG TABLET 3. Obesity, Class I, BMI 30-34.9 - ICD9: 278.00, ICD10: E66.9 Check labs, encouraged lifestyle changes with diet and exercise, get adequate sleep with working nights. Check labs today. Discussed consideration of Wellbutrin if labs all stable/WNL. Address labs, consider correction of thyroid if needed and/or glucose control with metformin if needed. Discussed possible medications. - HEMOGLOBIN A1C - THYROID STIMULATING HORMONE - LIPID PANEL, NONFASTING 4. Encounter for screening for diabetes mellitus - ICD9: V77.1, ICD10: Z13.1 - HEMOGLOBIN A1C 5. Encounter for therapeutic drug monitoring - ICD9: V58.83, ICD10: Z51.81 - COMPLETE BLOOD COUNT AND DIFFERENTIAL - COMPREHENSIVE METABOLIC PANEL 6. Screening for thyroid disorder - ICD9: V77.0, ICD10: Z13.29 - THYROID STIMULATING HORMONE 7. Lipid screening - ICD9: V77.91, ICD10: Z13.220 - LIPID PANEL, NONFASTING Portions of this note have been entered by ancillary staff. I have reviewed and when necessary edited, so that they are an adequate record of my encounter with this patient Please note that parts of this document were created using voice recognition software and therefore may contain grammatical errors. Patient verbalizes understanding of instructions from today's visit and in agreement with treatment plan. Questions answered. Agrees to call the office if questions, concerns of issues with acute symptoms not improving or if they worsen. See diagnoses and orders for additional plan(s). Allergies and medications were reviewed, list was updated, and refills given if needed. Past medical, surgical, social, and family history reviewed and updated as appropriate. Encouraged proper diet & exercise as well as compliance with taking medications. Age-appropriate health preventative measures were discussed. Return if symptoms worsen or fail to improve. Antonio Christina APRN-DANIEL documented in this encounter [facility] 09-24-2023 Note HNO ID: [id number] Author: ANTONIO CHRISTINA APRN.CNP Service: ? Author Type: Nurse Practitioner Type: Progress Notes Filed: 09/24/2023 08:49 Note Text: RENETTA Brown is a 37 year old female here today for a check up on her medical problems. Chief Complaint Patient presents with: Recheck Headache HPI Linda Brown is a 37 year old female. She is an established patient. Here today for follow up on migraine headaches. Started on Qulipta. States today that her migraines are some improved with the Qulipta. Sleeping better. Tolerating the medication well. No side effects. Wants to work on weight loss. Prior side effects with Topamax when use for headaches. 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 Her medications were reviewed today and her list is now up to date. Medications Current Outpatient Medications Medication Sig SUMAtriptan (IMITREX) 100 mg tablet TAKE 1 TABLET (100 MG) BY MOUTH NEEDED FOR MIGRAINE HEADACHE (SEE ADMINISTRATION INSTRUCTIONS). IF SYMPTOMS PERSIST OR RETURN, MAY REPEAT DOSE AFTER 2 HOURS. MAXIMUM DOSE: 100 MG/DOSE 200 MG PER 24 HOURS. ondansetron orally disintegrating (ZOFRAN ODT) 4 mg disintegrating tablet Take 1 tablet by mouth every 6 hours as needed for nausea/vomiting. valACYclovir (VALTREX) 1 gram 2 tablets at onset of cold sore, then repeat 2 tablets in 12 hours and repeat again on day 2 atogepant (QULIPTA) 10 mg tablet Take 1 tablet (10 mg) by mouth once daily. No current facility-administered medications for this visit. ALLERGIES Allergen Reactions Acetaminophen GI Upset Hydrocodone GI Upset ACTIVE PROBLEM LIST Obesity, Class I, Bmi 30-34.9 - 03/19/2022 Intractable Migraine With Aura With Status Migrainosus - 03/19/2022 Recurrent Cold Sores Epilepsy (Hcc) - 01/11/2014 Social History Tobacco Use Smoking status: Former Packs/day: .5 Types: Cigarettes Smokeless tobacco: Never Substance Use Topics Alcohol use: Yes Comment: Occasionally Drug use: No Review of Systems Respiratory: Negative. Cardiovascular: Negative. OBJECTIVE BP 106/78 Pulse 83 Wt 210 lb (95.3kg) SpO2 97% LMP 09/13/2023 Physical Exam Vitals and nursing note reviewed. Constitutional: General: She is awake. She is not in acute distress. Appearance: Normal appearance. She is well-developed and well-groomed. She is not ill-appearing, toxic-appearing or diaphoretic. HENT: Head: Normocephalic. Right Ear: External ear normal. Left Ear: External ear normal. Nose: Nose normal. Eyes: General: Vision grossly intact. Conjunctiva/sclera: Conjunctivae normal. Pupils: Pupils are equal, round, and reactive to light. Neck: Vascular: No JVD. Trachea: Trachea normal. Cardiovascular: Rate and Rhythm: Normal rate and regular rhythm. Pulses: Normal pulses. Heart sounds: Normal heart sounds. No murmur heard. Pulmonary: Effort: Pulmonary effort is normal. No accessory muscle usage, prolonged expiration or respiratory distress. Breath sounds: Normal breath sounds. Musculoskeletal: Cervical back: Neck supple. Skin: General: Skin is warm and dry. Capillary Refill: Capillary refill takes less than 2 seconds. Neurological: General: No focal deficit present. Mental Status: She is alert and oriented to person, place, and time. Mental status is at baseline. Psychiatric: Attention and Perception: Attention and perception normal. Mood and Affect: Mood and affect normal. Speech: Speech normal. Behavior: Behavior normal. Behavior is cooperative. Thought Content: Thought content normal. Cognition and Memory: Cognition and memory normal. Judgment: Judgment normal. ASSESSMENT/PLAN: 1. Intractable migraine with aura with status migrainosus - ICD9: 346.03, ICD10: G43.111 (primary diagnosis) Stable, improved, continue current medication at current dose. We did discuss there is room to increase if needed in the future if symptoms worsen/progress. - ATOGEPANT 10 MG TABLET 2. Persistent headaches - ICD9: 784.0, ICD10: R51.9 See #1 - ATOGEPANT 10 MG TABLET 3. Obesity, Class I, BMI 30-34.9 - ICD9: 278.00, ICD10: E66.9 Check labs, encouraged lifestyle changes with diet and exercise, get adequate sleep with working nights. Check labs today. Discussed consideration of Wellbutrin if labs all stable/WNL. Address labs, consider correction of thyroid if needed and/or glucose control with metformin if needed. Discussed possible medications. - HEMOGLOBIN A1C - THYROID STIMULATING HORMONE - LIPID PANEL, NONFASTING 4. Encounter for screening for diabetes mellitus - ICD9: V77.1, ICD10: Z13.1 - HEMOGLOBIN A1C 5. Encounter for therapeutic drug monitoring - ICD9: V58.83, ICD10: Z51.81 - COMPLETE BLOOD COUNT AND DIFFERENTIAL - COMPREHENSIVE METABOLIC PANEL 6. Screening for thyroid disorder - ICD9: V77.0, ICD10: Z13.29 - THYROID STIMULATING HORMONE 7. Lipid screening - ICD9 (more content not included)... [facility] 07-25-2023 History of Presen t illness Narrative SUBJECTIVE Linda Brown is a 37 year old female here today for a check up on her medical problems. Chief Complaint Patient presents with: Follow Up: headaches HPI Linda Brown is a 37 year old female. She is an established patient. Here today for follow up on her migraines/headaches. She has had chronic issues with this. Imitrex is helpful but does not always help even with taking the full dose. Per HPI from 02/14 with no noted changes to visit today: Headaches at least 4-5 days a week, 16 to 10 a month. Topamax made her feel odd in the past. Tricyclics not ideal with her work schedule. 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 Sensitive to light and sound. Nausea associated with this. No prior botox treatments. Headache onset over the last 5 years gradual. Last about 3 days. Goes to bed and wakes with these sometimes but not always. No concerns about depression, concerns about taking SNRI/SSRI. On depakote in the past for seizures and headaches. Depakote cause sleepiness. Has tried OTCs of tylenol, ibuprofen, excedrin and not helpful. Headache located to whole head. No blurred or double vision. No recent seizure activity, last seizure activity was around 9 years ago. Duration of headache can be several hours or days. Aura does occur, can just tell these are coming on. Formulary options of ajovy, emgality, qulipta. She was prescribed ajovy but did not use it due to concerns of taking an injection and not feeling comfortable with that. Her medications were reviewed today and her list is now up to date. Medications Current Outpatient Medications Medication Sig SUMAtriptan (IMITREX) 100 mg tablet TAKE 1 TABLET (100 MG) BY MOUTH NEEDED FOR MIGRAINE HEADACHE (SEE ADMINISTRATION INSTRUCTIONS). IF SYMPTOMS PERSIST OR RETURN, MAY REPEAT DOSE AFTER 2 HOURS. MAXIMUM DOSE: 100 MG/DOSE 200 MG PER 24 HOURS. ondansetron orally disintegrating (ZOFRAN ODT) 4 mg disintegrating tablet Take 1 tablet by mouth every 6 hours as needed for nausea/vomiting. valACYclovir (VALTREX) 1 gram 2 tablets at onset of cold sore, then repeat 2 tablets in 12 hours and repeat again on day 2 cyclobenzaprine (FLEXERIL) 10 mg tablet Take 1 tablet by mouth three times daily as needed for muscle spasm or pain. atogepant (QULIPTA) 10 mg tablet Take 1 tablet (10 mg) by mouth once daily. No current facility-administered medications for this visit. ALLERGIES Allergen Reactions Acetaminophen GI Upset Hydrocodone GI Upset ACTIVE PROBLEM LIST Obesity, Class I, Bmi 30-34.9 - 03/19/2022 Intractable Migraine With Aura With Status Migrainosus - 03/19/2022 Recurrent Cold Sores Epilepsy (Hcc) - 01/11/2014 Social History Tobacco Use Smoking status: Former Packs/day: .5 Types: Cigarettes Smokeless tobacco: Never Substance Use Topics Alcohol use: Yes Comment: Occasionally Drug use: No Review of Systems Respiratory: Negative. Cardiovascular: Negative. Neurological: Positive for headaches. OBJECTIVE BP 100/70 Pulse 82 Wt 214 lb (97.1kg) SpO2 98% LMP 02/28/2023 Physical Exam Vitals and nursing note reviewed. Constitutional: General: She is awake. She is not in acute distress. Appearance: Normal appearance. She is well-developed and well-groomed. She is not ill-appearing, toxic-appearing or diaphoretic. HENT: Head: Normocephalic. Right Ear: External ear normal. Left Ear: External ear normal. Nose: Nose normal. Eyes: General: Vision grossly intact. Conjunctiva/sclera: Conjunctivae normal. Pupils: Pupils are equal, round, and reactive to light. Neck: Vascular: No JVD. Trachea: Trachea normal. Pulmonary: Effort: Pulmonary effort is normal. No accessory muscle usage, prolonged expiration or respiratory distress. Musculoskeletal: Cervical back: Neck supple. Skin: General: Skin is warm and dry. Capillary Refill: Capillary refill takes less than 2 seconds. Neurological: General: No focal deficit present. Mental Status: She is alert and oriented to person, place, and time. Mental status is at baseline. Psychiatric: Attention and Perception: Attention and perception normal. Mood and Affect: Mood and affect normal. Speech: Speech normal. Behavior: Behavior normal. Behavior is cooperative. Thought Content: Thought content normal. Cognition and Memory: Cognition and memory normal. Judgment: Judgment normal. ASSESSMENT/PLAN: 1. Intractable migraine with aura with status migrainosus - ICD9: 346.03, ICD10: G43.111 (primary diagnosis) Please note: Migraines continue to be persistent and worse than prior baseline. They are severe, frequency still of 16-20 headache days a month or 4 to 5 days of the week on average with the headache lasting up to 3 days. Has tried triptans, Depakote, Topamax but had side effects. She had concerns of doing an injection so would opt not to start Ajovy, Aimovig, Emgality. We will start the other formulary option of Qulipta. Discussed new medication including but not limited to reason for use, possible side effects, administration, signs and symptoms to monitor for and when to seek medical attention. - ATOGEPANT 10 MG TABLET 2. Persistent headaches - ICD9: 784.0, ICD10: R51.9 See #1 - ATOGEPANT 10 MG TABLET 3. Fear of needles - ICD9: 300.29, ICD10: F40.298 See #1 Portions of this note have been entered by ancillary staff. I have reviewed and when necessary edited, so that they are an adequate record of my encounter with this patient Please note that parts of this document were created using voice recognition software and therefore may contain grammatical errors. Patient verbalizes understanding of instructions from today's visit and in agreement with treatment plan. Questions answered. Agrees to call the office if questions, concerns of issues with acute symptoms not improving or if they worsen. See diagnoses and orders for additional plan(s). Allergies and medications were reviewed, list was updated, and refills given if needed. Past medical, surgical, social, and family history reviewed and updated as appropriate. Encouraged proper diet & exercise as well as compliance with taking medications. Age-appropriate health preventative measures were discussed. Return in about 2 months (around 09/24/2023) for recheck on new medication.. Antonio Christina APRN-DANIEL documented in this encounter [facility] 07-22-2023 Telephone encounter Note Patient has been identified by name and date of : Yes, Provider Antonio Christina Date 4:57 pm Time 4:57pm Patient phones for refill(s): Requested Prescriptions Pending Prescriptions Disp Refills SUMAtriptan (IMITREX) 100 mg tablet [Pharmacy Med Name: SUMATRIPTAN SUCC 100 MG TABLET] 10 tablet 5 Sig: TAKE 1 TABLET (100 MG) BY MOUTH NEEDED FOR MIGRAINE HEADACHE (SEE ADMINISTRATION INSTRUCTIONS). IF SYMPTOMS PERSIST OR RETURN, MAY REPEAT DOSE AFTER 2 HOURS. MAXIMUM DOSE: 100 MG/DOSE 200 MG PER 24 HOURS. Date of last office visit in primary care: 10/09/2017 Date of next office visit in primary care: Visit date 07/25/23 Please advise. Thank you. Maru Danielle LPN. [facility] 07-22-2023 Miscellaneous Notes Patient has been identified by name and date of : Yes, Provider Antonio Christina Date 4:57 pm Time 4:57pm Patient phones for refill(s): Requested Prescriptions Pending Prescriptions Disp Refills SUMAtriptan (IMITREX) 100 mg tablet [Pharmacy Med Name: SUMATRIPTAN SUCC 100 MG TABLET] 10 tablet 5 Sig: TAKE 1 TABLET (100 MG) BY MOUTH NEEDED FOR MIGRAINE HEADACHE (SEE ADMINISTRATION INSTRUCTIONS). IF SYMPTOMS PERSIST OR RETURN, MAY REPEAT DOSE AFTER 2 HOURS. MAXIMUM DOSE: 100 MG/DOSE 200 MG PER 24 HOURS. Date of last office visit in primary care: 10/09/2017 Date of next office visit in primary care: Visit date 07/25/23 Please advise. Thank you. Maru Danielle LPN. documented in this encounter [facility] 10-08-2022 Miscellaneous Notes Patient has been identified by name and date of : Yes, Provider Antonio Christina [employer] MACHINE OPERATOR Date 10/08/22 Time 1614. Pharmacy phones for refill(s): Requested Prescriptions Pending Prescriptions Disp Refills ondansetron orally disintegrating (ZOFRAN ODT) 4 mg disintegrating tablet 30 tablet 1 Sig: Take 1 tablet by mouth every 6 hours as needed for nausea/vomiting. Date of last office visit in primary care: 08/16/22 Future visit: none Last 2 Encounter Wt Readings: Date: Wt: 08/16/2022 99.3 kg (219 lb) 07/04/2022 99 kg (218 lb 3.2 oz) Previous labs/tests for medication: Blood Pressure: No results found for: BUN, NA Last 1 Encounter BP Readings: Date: BP: 08/16/2022 110/84 Liver Function: No results found for: ALT, AST Please advise. Thank you. Aftab Patino RN documented in this encounter [facility] 07-08-2022 Miscellaneous Notes Patient calling for Sumatriptan refill. Advised she has refills available. Katelyn Avalos RN documented in this encounter [facility] 06-13-2022 Miscellaneous Notes Patient has been identified by name and date of : Yes Patient phones for refill(s): Requested Prescriptions Pending Prescriptions Disp Refills SUMAtriptan (IMITREX) 100 mg tablet 10 tablet 5 Sig: Take 1 tablet by mouth as needed for migraine headache (see administration instructions). If symptoms persist or return, may repeat dose after 2 hours. Maximum dose: 100 mg/dose; 200 mg per 24 hours. Date of last office visit in primary care: 03/19/2022 Wellness: 09/16/2022 Last 2 Encounter Wt Readings: Date: Wt: 03/19/2022 99.3 kg (219 lb) 01/25/2022 103 kg (227 lb) Previous labs/tests for medication: Not applicable Please advise. Thank you. Samia Fischer LPN Patient has been identified by name and date of : Yes Last office visit in this department: 03/19/2022 RX INSTRUCTIONS: Patient aware RX will be sent to pharmacy. No need to notify patient. Patient phones requesting refills as follows: Requested Prescriptions Pending Prescriptions Disp Refills SUMAtriptan (IMITREX) 100 mg tablet 10 tablet 5 Sig: Take 1 tablet by mouth as needed for migraine headache (see administration instructions). If symptoms persist or return, may repeat dose after 2 hours. Maximum dose: 100 mg/dose; 200 mg per 24 hours. Please review and advise. Edna Krause documented in this encounter [facility] 03-19-2022 History of Presen t illness Narrative SUBJECTIVE Linda Brown is a 36 year old female here today for a check up on her medical problems. Chief Complaint Patient presents with: Establish Care Headache: needs refill of medication HPI Linda Brown is a 36 year old female who presents today for follow up on migraine headaches. At her last visit we discussed her history of headaches, HPI from 01/25: Onset for headaches was gradual, has always had these but worsening over the last few months. Topamax for seizures has actually worsened her headaches in her opinion. She occasionally wakes with these, works third shift. Has tried OTCs of tylenol, ibuprofen, excedrin and not helpful. Not daily but occurring frequently and sometimes worse than others. Headache located to whole head. No blurred or double vision. No recent seizure activity, last seizure activity was around 9 years ago. Duration of headache can be several hours or days. Thinks around 10 headache days in the last month. Aggravating factors/ triggers are none that she knows of. Sensitive to light/sound both. Associated nausea/vomiting with these. Aura does occur, can just tell these are coming on. Today she reports that the Imitrex has been very helpful in treating her migraines. Migraines are more manageable now. She denies any side effects. Epilepsy has been well controlled, main trigger for seizures was and she had a tubal. Her medications were reviewed today and her list is now up to date. She is compliant on taking her medications: Yes She is tolerating her medication(s) without side effects: Yes Medications Current Outpatient Medications Medication Sig acetaminophen/pamabrom (MIDOL ORAL) Take 1 tablet by mouth as needed. ondansetron orally disintegrating (ZOFRAN ODT) 4 mg disintegrating tablet Take 1 tablet by mouth every 6 hours as needed for nausea/vomiting. SUMAtriptan (IMITREX) 100 mg tablet Take 1 tablet by mouth as needed for migraine headache (see administration instructions). If symptoms persist or return, may repeat dose after 2 hours. Maximum dose: 100 mg/dose; 200 mg per 24 hours. No current facility-administered medications for this visit. ALLERGIES Allergen Reactions Acetaminophen GI Upset Hydrocodone GI Upset ACTIVE PROBLEM LIST Obesity, Class I, Bmi 30-34.9 - 03/19/2022 Intractable Migraine With Aura With Status Migrainosus - 03/19/2022 Recurrent Cold Sores Epilepsy (Hcc) - 01/11/2014 Social History Tobacco Use Smoking status: Former Packs/day: 0.50 Types: Cigarettes Smokeless tobacco: Never Substance Use Topics Alcohol use: Yes Comment: Occasionally Drug use: No Review of Systems Respiratory: Negative. Cardiovascular: Negative. Neurological: Positive for seizures (no recent activity) and headaches. OBJECTIVE BP 120/70 Pulse 89 Ht 5' 7 (1.70m) Wt 219 lb (99.3kg) SpO2 98% LMP 03/14/2022 BMI 34.29 kg/(m^2). Physical Exam Vitals and nursing note reviewed. Constitutional: General: She is awake. She is not in acute distress. Appearance: Normal appearance. She is well-developed and well-groomed. She is not ill-appearing, toxic-appearing or diaphoretic. HENT: Head: Normocephalic. Right Ear: External ear normal. Left Ear: External ear normal. Nose: Nose normal. Eyes: General: Vision grossly intact. Conjunctiva/sclera: Conjunctivae normal. Pupils: Pupils are equal, round, and reactive to light. Neck: Vascular: No JVD. Trachea: Trachea normal. Pulmonary: Effort: Pulmonary effort is normal. No accessory muscle usage, prolonged expiration or respiratory distress. Musculoskeletal: Cervical back: Neck supple. Skin: General: Skin is warm and dry. Capillary Refill: Capillary refill takes less than 2 seconds. Neurological: General: No focal deficit present. Mental Status: She is alert and oriented to person, place, and time. Mental status is at baseline. Psychiatric: Attention and Perception: Attention and perception normal. Mood and Affect: Mood and affect normal. Speech: Speech normal. Behavior: Behavior normal. Behavior is cooperative. Thought Content: Thought content normal. Cognition and Memory: Cognition and memory normal. Judgment: Judgment normal. ASSESSMENT/PLAN: 1. Intractable migraine with aura with status migrainosus - ICD9: 346.03, ICD10: G43.111 (primary diagnosis) Migraines are now stable, well controlled. Since Imitrex is helpful and she is tolerating it well we will refill this. If headaches worsen then let us know. - SUMATRIPTAN 100 MG TABLET 2. Nonintractable epilepsy without status epilepticus, unspecified epilepsy type (HCC) - ICD9: 345.90, ICD10: G40.909 Well controlled, stable. No seizure activity in the last several years. 3. Obesity, Class I, BMI 30-34.9 - ICD9: 278.00, ICD10: E66.9 Portions of this note have been entered by ancillary staff. I have reviewed and when necessary edited, so that they are an adequate record of my encounter with this patient Please note that parts of this document were created using voice recognition software and therefore may contain grammatical errors. Patient verbalizes understanding of instructions from today's visit and in agreement with treatment plan. Questions answered. Agrees to call the office if questions, concerns of issues with acute symptoms not improving or if they worsen. See diagnoses and orders for additional plan(s). Allergies and medications were reviewed, list was updated, and refills given if needed. Past medical, surgical, social, and family history reviewed and updated as appropriate. Encouraged proper diet & exercise as well as compliance with taking medications. Age-appropriate health preventative measures were discussed. Medical Decision Making: Problems: Moderate: 2+ stable chronic illnesses Medical Decision Making Level: 2 - Straightforward Return in about 6 months (around 09/16/2022) for Wellness physical. Antonio Christina APRN-DANIEL documented in this encounter [facility] 03-14-2022 Miscellaneous Notes Summary: Est care Pt is scheduled to est care with Arielle on 03/19/22 at 9:20 AM. Thanks, Macie Santana, PSS Patient has never established care with Dr. Alexander, not sure why he is listed as PCP. She needs to schedule establish care visit for any further refills after this Jennifer Bain APRN.DANIEL Last Office Visit: 01/25/2022 Future Office Visit: None Requested Prescriptions Pending Prescriptions Disp Refills SUMAtriptan (IMITREX) 100 mg tablet 10 tablet 2 Sig: Take 1 tablet by mouth as needed for migraine headache (see administration instructions). If symptoms persist or return, may repeat dose after 2 hours. Maximum dose: 100 mg/dose; 200 mg per 24 hours. Date of Last Labs: None documented in this encounter [facility] 01-25-2022 History of Past i llness Narrative Problem Noted Date Resolved Date Obesity, Class II, BMI 35-39.9 01/25/2022 0 03/19/2022 NO SHOW 11/05/2012 11/30/2015 documented as of this encounter (statuses as of 03/19/2022) [facility]-02[facility] History of Past illness Narrative* Problem Noted Date Resolved Date Obesity, Class II, BMI 35-39.9 01/25/2022 0 03/19/2022 NO SHOW 11/05/2012 11/30/2015 documented as of this encounter (statuses as of 06/14/2022) [facility] History of Past illness Narrative* Problem Noted Date Resolved Date Obesity, Class II, BMI 35-39.9 01/25/2022 0 03/19/2022 NO SHOW 11/05/2012 11/30/2015 documented as of this encounter (statuses as of 07/08/2022) [facility] History of Past illness Narrative* Problem Noted Date Diagnosed Date Resolved Date Obesity, Class II, BMI 35-39.9 01/25/2022 03/19/2022 NO SHOW 11/05/2012 11/30/2015 documented as of this encounter (statuses as of 10/09/2022) [facility] History of Present illness Narrative* Antonio Christina APRN.ASSISTED LIVING HOME DIRECTOR - 01/25/2022 10:08 AM EST SUBJECTIVE Linda Brown is a 36 year old female here today for acute concerns. Chief Complaint Patient presents with: Headaches HPI Linda Brown is a 36 year old female. She presents today for concerns of persistent headaches. Onset for headaches was gradual, has always had these but worsening over the last few months. Topamaxfor seizures has actually worsened her headaches in her opinion. She occasionally wakes with these,works third shift. Has tried OTCs of tylenol, ibuprofen, excedrin and not helpful. Not daily but occurring frequently and sometimes worse than others. Headache located to whole head. No blurred or double vision. No recent seizure activity, last seizure activity was around 9 years ago. Duration of headache can be several hours or days. Thinks around 10 headache days in the last month. Aggravating f actors/ triggers are none that she knows of. Sensitive to light/sound both. Associated nausea/vomiting with these. Aura does occur, can just tell these are coming on. Her medications were reviewed today and her list is now up to date. Medications Current Outpatient Medications Medication Sig SUMAtriptan (IMITREX) 100 mg tablet Take 1 tablet by mouth as needed for migraine headache (see administration instructions). If symptoms persist or return, may repeat dose after 2 hours. Maximum dose: 100 mg/dose; 200 mg per 24 hours. ondansetron orally disintegrating (ZOFRAN ODT) 4 mg disintegrating tablet Take 1 tablet by mouth every 6 hours as needed for nausea/vomiting. lidocaine viscous (LIDOCAINE VISCOUS) 2 % solution Take 5-10 mL by mouth as needed. topiramate (TOPAMAX) 25 mg tablet Take 4 tablets by mouth once daily. No current facility-administered medications for this visit. ALLERGIES Allergen Reactions Hydrocodone GI Upset ACTIVE PROBLEM LIST Obesity, Class II, Bmi 35-39.9 - 01/25/2022 Recurrent Cold Sores Epilepsy (Hcc) - 01/11/2014 Social History Tobacco Use Smoking status: Former Packs/day: 0.50 Types: Cigarettes Smokeless tobacco: Never Substance Use Topics Alcohol use: Yes Comment: Occasionally Drug use: No Review of Systems Respiratory: Negative. Cardiovascular: Negative. Neurological: Positive for seizures (history) and headaches. Negative for dizziness, tremors, syncope, facial asymmetry, speech difficulty, weakness, light-headedness and numbness. OBJECTIVE BP 110/72 Pulse 102 Wt 227 lb (103.0kg) SpO2 98% LMP 07/26/2021 Physical Exam Vitals and nursing note reviewed. Constitutional: General: She is awake. She is not in acute distress. Appearance: She is well-developed and well-groomed. She is not ill-appearing, toxic-appearing or diaphoretic. HENT: Head: Normocephalic. Eyes: General: Lids are normal. Vision grossly intact. Gaze aligned appropriately. Extraocular Movements: Extraocular movements intact. Conjunctiva/sclera: Conjunctivae normal. Pupils: Pupils are equal, round, and reactive to light. Cardiovascular: Rate and Rhythm: Normal rate and regular rhythm. Heart sounds: Normal heart sounds. Pulmonary: Effort: Pulmonary effort is normal. No accessory muscle usage, prolonged expiration or respiratory distress. Breath sounds: Normal breath sounds. Skin: General: Skin is warm and dry. Capillary Refill: Capillary refill takes less than 2 seconds. Neurological: General: No focal deficit present. Mental Status: She is alert and oriented to person, place, and time. Mental status is at baseline. Cranial Nerves: Cranial nerves 2-12 are intact. Sensory: Sensation is intact. Motor: Motor function is intact. Coordination: Coordination is intact. Gait: Gait is intact. Psychiatric: Attention and Perception: Attention and perception normal. Mood and Affect: Mood and affect normal. Speech: Speech normal. Behavior: Behavior normal. Behavior is cooperative. Thought Content: Thought content normal. Cognition and Memory: Cognition and memory normal. Judgment: Judgment normal. ASSESSMENT/PLAN: 1. Intractable migraine with aura with status migrainosus - ICD9: 346.03, ICD10: G43.111 (primary diagnosis) Her symptoms do sound pretty classic for a migraine type headache. Neuro exam without red flags. Recommended she begin a headache diary to try and identify any triggers. Discussed options with her and will trial her on Imitrex. Zofran for nausea. Discussed new medication including but not limited to reason for use, possible side effects, administration, signs and symptoms to monitor for and when to seek medical attention. Advised triptans should not be used by those who have a past history of, or risk factors, for heartdisease, high blood pressure, high cholesterol, angina, peripheral vascular disease, impaired liverfunction, stroke or diabetes. If headaches persistent then consider daily prophylactic med options along with checking MRI to rule out any issues there. - SUMATRIPTAN 100 MG TABLET - ONDANSETRON 4 MG DISINTEGRATING TABLET 2. Obesity, Class II, BMI 35-39.9 - ICD9: 278.00, ICD10: E66.9 Portions of this note have been entered by ancillary staff. I have reviewed and when necessary edited, so that they are an adequate record of my encounter with this patient Please note that parts of this document were created using voice recognition software and therefore may contain grammatical errors. Patient verbalizes understanding of instructions from today's visit and in agreement with treatmentplan. Questions answered. Agrees to call the office if questions, concerns of issues with acute symptoms not improving or if they worsen. See diagnoses and orders for additional plan(s). Allergies and medications were reviewed, list was updated, and refills given if needed. Past medical, surgical, social, and family history reviewed and updated as appropriate. Encouraged proper diet & exercise as well as compliance with taking medications. Age- appropriate health preventative measures were discussed. Return if symptoms worsen or fail to improve, for Keep next scheduled appointment.. Antonio Christina APRN-DANIEL [facility] Miscellaneous Notes* Telephone Encounter - Juan Berry Ma - 11/05/2021 3:22 PM EDT Mychart sent. [facility] History of Present illness Narrative* Ronal German APRN.CNP - 08/10/2021 2:49 PM EDT Subjective HPI HPI Linda Brown is a 35 year old female who presents today for CC of st, cough, congestion. This started 4 weeks ago. Has tried otc medication for relief. Symptoms are worsened by nothing. Remotesmoker. Denies cp/sob, n/v/d. Denies possibility of being . .Patient presents with: Sore Throat: pain rated 10, x4 wks, nasal congestion cough Pt denied SOB, chest pain PAST MEDICAL HISTORY Diagnosis Date Carpal tunnel syndrome, unspecified upper limb Epilepsy (HCC) Recurrent cold sores PAST SURGICAL HISTORY Procedure Laterality Date ESSURE 2013 PAST SURGICAL HISTORY OF [facility]&C ALLERGIES Hydrocodone MEDICATIONS topiramate (TOPAMAX) 25 mg tablet Take 4 tablets by mouth once daily. FAMILY HISTORY Problem Relation Age of Onset Diabetes Mother Kidney Disease Father Hypertension Father Diabetes Father Heart Father Diabetes Maternal Grandfather Diabetes Paternal Grandmother Hypertension Paternal Grandmother Kidney Disease Paternal Grandmother Hypertension Paternal Grandfather Kidney Disease Paternal Grandfather Social History Tobacco Use Smoking status: Former Smoker Packs/day: 0.50 Smokeless tobacco: Never Used Substance Use Topics Alcohol use: Yes Comment: Occasionally Drug use: No Review of Systems Constitutional: Negative for fever. HENT: Positive for congestion, sinus pain and sore throat. Negative for ear pain and nosebleeds. Respiratory: Positive for cough. Negative for shortness of breath and wheezing. Cardiovascular: Negative for chest pain. Musculoskeletal: Negative for neck pain. Skin: Negative for itching and rash. Objective Blood pressure 116/70, pulse 102, temperature 36.3 C (97.4 F), resp. rate 16, weight 101.2 kg (223 lb 3.2 oz), last menstrual period 07/26/2021, SpO2 98 %. Physical Exam Constitutional: General: She is not in acute distress. Appearance: She is not toxic-appearing or diaphoretic. HENT: Head: Normocephalic and atraumatic. Cardiovascular: Rate and Rhythm: Normal rate and regular rhythm. Heart sounds: Normal heart sounds, S1 normal and S2 normal. Pulmonary: Effort: Pulmonary effort is normal. Breath sounds: Normal breath sounds. Lymphadenopathy: Cervical: No cervical adenopathy. Right cervical: No superficial cervical adenopathy. Left cervical: No superficial cervical adenopathy. Neurological: Mental Status: She is alert and oriented to person, place, and time. Gait: Gait is intact. ASSESSMENT/PLAN: 1. Sinobronchitis - ICD9: 473.9, 490, ICD10: J32.9, J40 (primary diagnosis) - Will begin treatment with Doxycycline - Supportive care with plenty of fluids, rest, and analgesia prn. - Follow up in 3-5 days if symptoms persist or worsen. - DOXYCYCLINE MONOHYDRATE 100 MG TABLET - PREDNISONE 20 MG TABLET - LIDOCAINE HCL 2 % MUCOSAL SOLUTION 2. Sore throat - ICD9: 462, ICD10: J02.9 - suspect viral - Alere Strep Test neg, no culture pending - Discussed supportive care treatment with fluids, rest and analgesia. - The patient should follow up in 3-5 days if symptoms persist or worsen - ALERE STREP A TEST (AG) - neg Agrees to plan Ronal German APRN.DANIEL [facility] History of Present illness Narrative* Lucero Loera)Mary Ann - 06/13/2020 11:00 AM EDT Radiology Service Progress Note PATIENT NAME: Linda Brown DATE OF SERVICE: June 13, 2020 TIME: 11:26 AM PATIENT IDENTITY VERIFICATION COMPLETED USING TWO (2) IDENTIFIERS: Name and Date of confirmedby patient verbally. FALL SCREENING: Has the patient had 2 falls in the last year or 1 fall with injury or currently using an Ambulatory Assistive Device (Walker, Cane, Wheelchair, Crutches, etc.)? No PATIENT GENDER DATA: Female. status: : No status: NO. PATIENT RELEVANT IMPLANT DATA REVIEWED: Yes RADIOLOGY DEPARTMENT: General X-ray: Exam(s) Completed: Upper Extremity X- Ray(s): Shoulder, AP / TRUE AP / AXILLARY right : PERIPHERAL IV DATA: Not applicable SIGNED BY: RT Sherin June 13, 2020 11:26 AM [facility] History of Past illness Narrative* Problem Noted Date Resolved Date NO SHOW 11/05/2012 11/30/2015 documented as of this encounter (statuses as of 08/10/2021) [address]12-2013 History of Past illness Narrative* Problem Noted Date Resolved Date NO SHOW 11/05/2012 11/30/2015 documented as of this encounter (statuses as of 11/05/2021) [address]12-2013 History of Past illness Narrative* Problem Noted Date Resolved Date NO SHOW 11/05/2012 11/30/2015 documented as of this encounter (statuses as of 01/23/2022) [address]12-2013 History of Past illness Narrative* Problem Noted Date Resolved Date NO SHOW 11/05/2012 11/30/2015 documented as of this encounter (statuses as of 01/25/2022) [address]12-2013 History of Past illness Narrative* Problem Noted Date Resolved Date NO SHOW 11/05/2012 11/30/2015 documented as of this encounter (statuses as of 03/14/2022) [facility] Diagnosis Sinobronchitis- Primary Unspecified sinusitis (chronic) Sore throat Acute pharyngitis [facility] noteNo assessment information availableWSelect Medical [facility] [place] Work Phone: Evaluation note* Diagnosis Intractable migraine with aura with status migrainosus- Primary Migraine with aura, with intractable migraine, so stated, with status migrainosus Obesity, Class II, BMI 35-39.9 Obesity, unspecified [facility]* Diagnosis Intractable migraine with aura with status migrainosus Migraine with aura, with intractable migraine, so stated, with status migrainosus [facility] Intractable migraine with aura with status migrainosus- Primary Migraine with aura, with intractable migraine, so stated, with status migrainosus Nonintractable epilepsy without status epilepticus, unspecified epilepsy type (HCC) Obesity, Class I, BMI 30-34.9 Obesity, unspecified [facility] Intractable migraine with aura with status migrainosus Migraine with aura, with intractable migraine, so stated, with status migrainosus [facility] Diagnosis Intractable migraine with aura with status migrainosus Migraine with aura, with intractable migraine, so stated, with status migrainosus [facility] Diagnosis Intractable migraine with aura with status migrainosus Migraine with aura, with intractable migraine, so stated, with status migrainosus [facility] Diagnosis Intractable migraine with aura with status migrainosus- Primary Migraine with aura, with intractable migraine, so stated, with status migrainosus Persistent headaches Headache Fear of needles Other isolated or specific phobias [facility] Diagnosis Intractable migraine with aura with status migrainosus- Primary Migraine with aura, with intractable migraine, so stated, with status migrainosus Persistent headaches Headache Obesity, Class I, BMI 30-34.9 Obesity, unspecified Encounter for screening for diabetes mellitus Screening for diabetes mellitus Encounter for therapeutic drug monitoring Screening for thyroid disorder Lipid screening Screening for lipoid disorders [facility] Diagnosis Chronic right shoulder pain Pain in joint, shoulder region [facility] Diagnosis Chronic right shoulder pain Pain in joint, shoulder region [facility] Diagnosis Sprain of right ankle, unspecified ligament, subsequent encounter- Primary Closed fracture of base of fifth metatarsal bone at metaphyseal-diaphyseal junction with routine healing, subsequent encounter Contusion of right foot, subsequent encounter [facility] Diagnosis Sprain of right ankle, unspecified ligament, subsequent encounter Closed fracture of base of fifth metatarsal bone at metaphyseal-diaphyseal junction with routine healing, subsequent encounter Contusion of right foot, subsequent encounter [facility] Diagnosis Closed fracture of base of fifth metatarsal bone at metaphyseal-diaphyseal junction with routine healing, subsequent encounter [facility] Diagnosis Sore throat- Primary Acute pharyngitis Acute non-recurrent streptococcal tonsillitis [facility] Diagnosis Pain in right foot- Primary Pain in limb [facility] Diagnosis Pain in right foot Pain in limb [facility] Diagnosis Closed fracture of base of fifth metatarsal bone at metaphyseal-diaphyseal junction with routine healing, subsequent encounter- Primary [facility] Diagnosis Closed fracture of base of fifth metatarsal bone at metaphyseal-diaphyseal junction with routine healing, subsequent encounter [facility] Diagnosis Sore throat- Primary Acute pharyngitis URI, acute Acute upper respiratory infections of unspecified site [facility] Diagnosis Pain in right foot Pain in limb [facility] Diagnosis Closed fracture of base of fifth metatarsal bone at metaphyseal-diaphyseal junction with routine healing, subsequent encounter [facility] Diagnosis Closed fracture of base of fifth metatarsal bone at metaphyseal-diaphyseal junction with routine healing, subsequent encounter- Primary [facility] Diagnosis Closed fracture of base of fifth metatarsal bone at metaphyseal-diaphyseal junction with routine healing, subsequent encounter- Primary [facility] Diagnosis Pain in right foot- Primary Pain in limb Pain in joint involving right ankle and foot Pain in right foot Pain in limb [facility] Diagnosis Encounter for gynecological examination (general) (routine) without abnormal findings- Primary Screening for cervical cancer Screening for malignant neoplasm of the cervix Encounter for screening for human papillomavirus (HPV) Special screening examination for human papillomavirus (HPV) Encounter for screening mammogram for breast cancer Screen for STD (sexually transmitted disease) Screening examination for venereal disease Menorrhagia with regular cycle Excessive or frequent menstruation [facility] Diagnosis Encounter for gynecological examination (general) (routine) without abnormal findings Encounter for screening mammogram for breast cancer [facility] Diagnosis Abnormal mammogram- Primary Abnormal mammogram, unspecified [facility] Diagnosis Menorrhagia with regular cycle Excessive or frequent menstruation documented in this encounter [facility] for referral (narrative)* Diagnostic Procedure Only (Routine) - Closed Specialty Diagnoses / Procedures Referred By John t Referred To Contact [facility] Diagnoses Chronic right shoulder pain Procedures XR SHOULDER GENERAL 3V OR MORE AP/TRUE AP/OTHER RIGHT RADEX SHOULDER COMPLETE MINIMUM 2 VIEWS Antonio Christina APRN.ASSISTED LIVING HOME DIRECTOR [address] [place] [address] [place] [address] Referral ID Status Reason Start Date Expiration Date V isits Requested Visits Authorized [id number] Closed Auto-Generate d Referral 08/16/2022 09/15/2023 1 1 [facility] for visit Narrative* Diagnostic Procedure Only (Routine) - Closed Specialty Diagnoses / Procedures Referred By Contac t Referred To Contact XR IMAGING Diagnoses Chronic right shoulder pain Procedures XR SHOULDER GENERAL 3V OR MORE AP/TRUE AP/OTHER RIGHT RADEX SHOULDER COMPLETE MINIMUM 2 VIEWS Antonio Christina APRN.CNP [address] [place] [address] [place] [address] Referral ID Status Reason Start Date Expiration Date V isits Requested Visits Authorized [id number] Closed Auto-Generate d Referral 08/16/2022 09/15/2023 1 1 [facility] for visit Narrative* Diagnostic Procedure Only (Routine) - Closed Specialty Diagnoses / Procedures Referred By Contac t Referred To Contact XR IMAGING Diagnoses Closed fracture of base of fifth metatarsal bone at metaphyseal-diaphyseal junction with routine healing, subsequent encounter Procedures XR FOOT GENERAL 3V AP/LAT/OBL RIGHT RADEX FOOT COMPLETE MINIMUM 3 VIEWS TestAdriana jones [address] [address] Phone: tel: fax: [place] [address] Referral ID Status Reason Start Date Expiration Date V isits Requested Visits Authorized [id number] Closed Auto-Generate d Referral 04/13/2024 05/13/2025 1 1 [facility] for visit Narrative* Diagnostic Procedure Only (Routine) - Closed Specialty Diagnoses / Procedures Referred By Contac t Referred To Contact XR IMAGING Diagnoses Pain in right foot Procedures XR FOOT GENERAL 3V AP/LAT/OBL RIGHT RADEX FOOT COMPLETE MINIMUM 3 VIEWS TestraAdriana treviño [address] [address] Phone: tel: fax: [place] [address] Referral ID Status Reason Start Date Expiration Date V isits Requested Visits Authorized [id number] Closed Auto-Generate d Referral 04/28/2024 05/28/2025 1 1 [facility] for visit Narrative* Diagnostic Procedure Only (Routine) - Closed Specialty Diagnoses / Procedures Referred By Contac t Referred To Contact XR IMAGING Diagnoses Closed fracture of base of fifth metatarsal bone at metaphyseal-diaphyseal junction with routine healing, subsequent encounter Procedures XR FOOT GENERAL 3V AP/LAT/OBL RIGHT RADEX FOOT COMPLETE MINIMUM 3 VIEWS Adriana Yates [address] [address] Phone: tel: fax: [place] [address] Referral ID Status Reason Start Date Expiration Date V isits Requested Visits Authorized [id number] Closed Auto-Generate d Referral 05/13/2024 06/12/2025 1 1 [facility] for visit Narrative* Diagnostic Procedure Only (Routine) - Closed Specialty Diagnoses / Procedures Referred By Contac t Referred To Contact XR IMAGING Diagnoses Pain in right foot Procedures XR FOOT GENERAL 3V AP/LAT/OBL RIGHT RADEX FOOT COMPLETE MINIMUM 3 VIEWS Adriana Yates [address] [place] [address] Phone: tel: fax: [place] [address] Referral ID Status Reason Start Date Expiration Date V isits Requested Visits Authorized [id number] Closed Auto-Generate d Referral 06/03/2024 07/03/2025 1 1 [facility] for visit Narrative* Diagnostic Procedure Only (Routine) - Closed Specialty Diagnoses / Procedures Referred By Contac t Referred To Contact XR IMAGING Diagnoses Closed fracture of base of fifth metatarsal bone at metaphyseal-diaphyseal junction with routine healing, subsequent encounter Procedures XR FOOT GENERAL 3V AP/LAT/OBL RIGHT RADEX FOOT COMPLETE MINIMUM 3 VIEWS Adriana Yates [address] [place] [address] Phone: tel: fax: [place] [address] Referral ID Status Reason Start Date Expiration Date V isits Requested Visits Authorized [id number] Closed Auto-Generate d Referral 06/24/2024 07/03/2025 1 1 [facility] for visit Narrative* Diagnostic Procedure Only (Routine) - Closed Specialty Diagnoses / Procedures Referred By John humphrey Referred To Contact XR IMAGING Diagnoses Closed fracture of base of fifth metatarsal bone at metaphyseal-diaphyseal junction with routine healing, subsequent encounter Procedures XR FOOT GENERAL 3V AP/LAT/OBL RIGHT RADEX FOOT COMPLETE MINIMUM 3 VIEWS Adriana Yates [address] [place] [address] Phone: tel: fax: [place] [address] Referral ID Status Reason Start Date Expiration Date V isits Requested Visits Authorized [id number] Closed Auto-Generate d Referral 06/24/2024 07/24/2025 1 1 [facility] for visit Narrative* Diagnostic Procedure Only (Routine) - Closed Specialty Diagnoses / Procedures Referred By John humphrey Referred To Contact [facility] Diagnoses Encounter for gynecological examination (general) (routine) without abnormal findings Encounter for screening mammogram for breast cancer Procedures FAYE SCREENING W INOCENCIA SCREENING DIGITAL BREAST TOMOSYNTHESIS BI SCREENING MAMMOGRAPHY BI 2-VIEW BREAST INC CAD Melissa Valverde, FAST FOOD ASSISTANT RESTAURANT MANAGER.ASSISTED LIVING HOME DIRECTOR [address] [place] [address] Phone: tel: fax: [facility] [address] [place] [address] Referral ID Status Reason Start Date Expiration Date V isits Requested Visits Authorized [id number] Closed Auto-Generate d Referral 08/10/2024 09/09/2025 1 1 [facility] for visit Narrative* Diagnostic Procedure Only (Routine) - Closed Specialty Diagnoses / Procedures Referred By John humphrey Referred To Contact [facility] Diagnoses Menorrhagia with regular cycle Procedures PELVIC US WHI US PELVIC NONOBSTETRIC REAL-TIME IMAGE COMPLETE Melissa Valverde, MARY.ASSISTED LIVING HOME DIRECTOR [address] [place] [address] Phone: tel: fax: [facility] [address] [place] [address] Referral ID Status Reason Start Date Expiration Date V isits Requested Visits Authorized [id number] Closed Auto-Generate d Referral 08/10/2024 08/10/2025 1 1 [facility] Advance Directives Advance Directive Response Recorded Date/ Time Living Will No April 06 022 9:26am Power of Embossing Machine Operator No April 06, 2021 9:26am Chief Complaint and Reason for Visit Chief Complaint NIPPLE DISCHARGE Summary Purpose Family History No Family History Records FoundNo Family History Records Found Additional Source Comments Source Comments (unrecognize d section and content) In the event this informatio n is protected by the Federal Confidentiality of Alcohol and Drug Abuse Patient Records regulations: The Federal rules restrict any use of the information to criminally investigate or prosecute any alcohol or drug abuse patient.[facility] event this information is protected by the Federal Confidentiality of Alcohol and Drug Abuse Patient Records regulations: The Federal rules restrict any use of the information to criminally investigate or prosecute any alcohol or drug abuse patient.[facility] the event this information is protected by the Federal Confidentiality of Alcohol and Drug Abuse Patient Records regulations: The Federal rules restrict any use of the information to criminally investigate or prosecute any alcohol or drug abuse patient.[facility] the event this information is protected by the Federal Confidentiality of Alcohol and Drug Abuse Patient Records regulations: The Federal rules restrict any use of the information to criminally investigate or prosecute any alcohol or drug abuse patient.[facility] the event this information is protected by the Federal Confidentiality of Alcohol and Drug Abuse Patient Records regulations: The Federal rules restrict any use of the information to criminally investigate or prosecute any alcohol or drug abuse patient.[facility] the event this information is protected by the Federal Confidentiality of Alcohol and Drug Abuse Patient Records regulations: The Federal rules restrict any use of the information to criminally investigate or prosecute any alcohol or drug abuse patient.[facility] the event this information is protected by the Federal Confidentiality of Alcohol and Drug Abuse Patient Records regulations: The Federal rules restrict any use of the information to criminally investigate or prosecute any alcohol or drug abuse patient.[facility] the event this information is protected by the Federal Confidentiality of Alcohol and Drug Abuse Patient Records regulations: The Federal rules restrict any use of the information to criminally investigate or prosecute any alcohol or drug abuse patient.[facility] the event this information is protected by the Federal Confidentiality of Alcohol and Drug Abuse Patient Records regulations: The Federal rules restrict any use of the information to criminally investigate or prosecute any alcohol or drug abuse patient.[facility] the event this information is protected by the Federal Confidentiality of Alcohol and Drug Abuse Patient Records regulations: The Federal rules restrict any use of the information to criminally investigate or prosecute any alcohol or drug abuse patient.[facility] the event this information is protected by the Federal Confidentiality of Alcohol and Drug Abuse Patient Records regulations: The Federal rules restrict any use of the information to criminally investigate or prosecute any alcohol or drug abuse patient.[facility] the event this information is protected by the Federal Confidentiality of Alcohol and Drug Abuse Patient Records regulations: The Federal rules restrict any use of the information to criminally investigate or prosecute any alcohol or drug abuse patient.[facility] the event this information is protected by the Federal Confidentiality of Alcohol and Drug Abuse Patient Records regulations: The Federal rules restrict any use of the information to criminally investigate or prosecute any alcohol or drug abuse patient.[facility] the event this information is protected by the Federal Confidentiality of Alcohol and Drug Abuse Patient Records regulations: The Federal rules restrict any use of the information to criminally investigate or prosecute any alcohol or drug abuse patient.[facility] the event this information is protected by the Federal Confidentiality of Alcohol and Drug Abuse Patient Records regulations: The Federal rules restrict any use of the information to criminally investigate or prosecute any alcohol or drug abuse patient.[facility] the event this information is protected by the Federal Confidentiality of Alcohol and Drug Abuse Patient Records regulations: The Federal rules restrict any use of the information to criminally investigate or prosecute any alcohol or drug abuse patient.[facility] the event this information is protected by the Federal Confidentiality of Alcohol and Drug Abuse Patient Records regulations: The Federal rules restrict any use of the information to criminally investigate or prosecute any alcohol or drug abuse patient.[facility] the event this information is protected by the Federal Confidentiality of Alcohol and Drug Abuse Patient Records regulations: The Federal rules restrict any use of the information to criminally investigate or prosecute any alcohol or drug abuse patient.[facility] the event this information is protected by the Federal Confidentiality of Alcohol and Drug Abuse Patient Records regulations: The Federal rules restrict any use of the information to criminally investigate or prosecute any alcohol or drug abuse patient.[facility] the event this information is protected by the Federal Confidentiality of Alcohol and Drug Abuse Patient Records regulations: The Federal rules restrict any use of the information to criminally investigate or prosecute any alcohol or drug abuse patient.[facility] the event this information is protected by the Federal Confidentiality of Alcohol and Drug Abuse Patient Records regulations: The Federal rules restrict any use of the information to criminally investigate or prosecute any alcohol or drug abuse patient.[facility] the event this information is protected by the Federal Confidentiality of Alcohol and Drug Abuse Patient Records regulations: The Federal rules restrict any use of the information to criminally investigate or prosecute any alcohol or drug abuse patient.[facility] the event this information is protected by the Federal Confidentiality of Alcohol and Drug Abuse Patient Records regulations: The Federal rules restrict any use of the information to criminally investigate or prosecute any alcohol or drug abuse patient.[facility] the event this information is protected by the Federal Confidentiality of Alcohol and Drug Abuse Patient Records regulations: The Federal rules restrict any use of the information to criminally investigate or prosecute any alcohol or drug abuse patient.[facility] the event this information is protected by the Federal Confidentiality of Alcohol and Drug Abuse Patient Records regulations: The Federal rules restrict any use of the information to criminally investigate or prosecute any alcohol or drug abuse patient.[facility] the event this information is protected by the Federal Confidentiality of Alcohol and Drug Abuse Patient Records regulations: The Federal rules restrict any use of the information to criminally investigate or prosecute any alcohol or drug abuse patient.[facility] the event this information is protected by the Federal Confidentiality of Alcohol and Drug Abuse Patient Records regulations: The Federal rules restrict any use of the information to criminally investigate or prosecute any alcohol or drug abuse patient.[facility] the event this information is protected by the Federal Confidentiality of Alcohol and Drug Abuse Patient Records regulations: The Federal rules restrict any use of the information to criminally investigate or prosecute any alcohol or drug abuse patient.[facility] the event this information is protected by the Federal Confidentiality of Alcohol and Drug Abuse Patient Records regulations: The Federal rules restrict any use of the information to criminally investigate or prosecute any alcohol or drug abuse patient.[facility] the event this information is protected by the Federal Confidentiality of Alcohol and Drug Abuse Patient Records regulations: The Federal rules restrict any use of the information to criminally investigate or prosecute any alcohol or drug abuse patient.[facility] the event this information is protected by the Federal Confidentiality of Alcohol and Drug Abuse Patient Records regulations: The Federal rules restrict any use of the information to criminally investigate or prosecute any alcohol or drug abuse patient.[facility] the event this information is protected by the Federal Confidentiality of Alcohol and Drug Abuse Patient Records regulations: The Federal rules restrict any use of the information to criminally investigate or prosecute any alcohol or drug abuse patient.[facility] the event this information is protected by the Federal Confidentiality of Alcohol and Drug Abuse Patient Records regulations: The Federal rules restrict any use of the information to criminally investigate or prosecute any alcohol or drug abuse patient.[facility] the event this information is protected by the Federal Confidentiality of Alcohol and Drug Abuse Patient Records regulations: The Federal rules restrict any use of the information to criminally investigate or prosecute any alcohol or drug abuse patient.[facility] the event this information is protected by the Federal Confidentiality of Alcohol and Drug Abuse Patient Records regulations: The Federal rules restrict any use of the information to criminally investigate or prosecute any alcohol or drug abuse patient.[facility] the event this information is protected by the Federal Confidentiality of Alcohol and Drug Abuse Patient Records regulations: The Federal rules restrict any use of the information to criminally investigate or prosecute any alcohol or drug abuse patient.[facility] the event this information is protected by the Federal Confidentiality of Alcohol and Drug Abuse Patient Records regulations: The Federal rules restrict any use of the information to criminally investigate or prosecute any alcohol or drug abuse patient.[facility] the event this information is protected by the Federal Confidentiality of Alcohol and Drug Abuse Patient Records regulations: The Federal rules restrict any use of the information to criminally investigate or prosecute any alcohol or drug abuse patient.[facility] Reason for Visit (unrecogniz ed section and content) Reason Comments Sore Throat pain rated 10, x4 wk s, nasal congestion cough Pt denied SOB, chest pain Reason Comments Headaches Reason Onset Date Comments Refill Request 03/11/2022 Reason Comments Establish Care Headache needs refill of medi cation Reason Onset Date Comments Refill Request 06/13/2022 Reason Onset Date Comments Refill Request 07/08/2022 Reason Onset Date Comments Refill Request 10/08/2022 Reason Comments Refill Request Reason Comments Follow Up headaches Reason Comments Recheck Headache Reason Comments Hospital F/U Reason Comments Swelling New Pain Specialty Diagnoses / Procedures Referred By John humphrey Referred To Contact Podiatry Diagnoses Sprain of right ankle, unspecified ligament, subsequent encounter Closed fracture of base of fifth metatarsal bone at metaphyseal-diaphyseal junction with routine healing, subsequent encounter Contusion of right foot, subsequent encounter Procedures CONSULT TO PODIATRY OFFICE/OUTPATIENT [facility] 60 MINUTES Natalie Regalado, FAST FOOD ASSISTANT RESTAURANT MANAGER.SKIN PILER [address] [place] [address] Phone: tel: fax: Referral ID Status Reason Start Date Expiration Date V isits Requested Visits Authorized [id number] Closed PCP Requested Referral 04/12/2024 04/12/2025 1 1 Reason Comments Sore Throat chills, fever x toda y Reason Comments FMLA Paperwork Reason Comments Pain Swelling Established Patient Follow Up Reason Comments Sore Throat Reason Comments Established Patient Follow Up Fracture Reason Comments Follow Up Fracture Reason Onset Date Comments Orders 08/11/2024 Care Teams (unrecognized sec tion and content) Cement Finishing Supervisor Relationship Specialty Start Date End Date Logan Alexander MD [address] [place], [place] [id number] PCP - General Internal Medicine 03/28/21 Cement Finishing Supervisor Relationship Specialty Start Date End Date Logan Alexander MD [address] [place] [address] PCP - General Internal Medicine 03/28/21 Cement Finishing Supervisor Relationship Specialty Start Date End Date Antonio Christina APRN.ASSISTED LIVING HOME DIRECTOR [address] [place] [id number] PCP - General Internal Medicine 03/19/22 Cement Finishing Supervisor Relationship Specialty Start Date End Date Antonio Christina APRN.ASSISTED LIVING HOME DIRECTOR [address] [place] [address] PCP - General Internal Medicine 03/19/22 Cement Finishing Supervisor Relationship Specialty Start Date End Date Antonio Christina APRN.ASSISTED LIVING HOME DIRECTOR [address] [place] [id number] PCP - General Internal Medicine 03/19/22 Cement Finishing Supervisor Relationship Specialty Start Date End Date Antonio Christina APRN.ASSISTED LIVING HOME DIRECTOR [address] [place] [phone] PCP - General Internal Medicine 03/19/22 Cement Finishing Supervisor Relationship Specialty Start Date End Date Antonio Christina APRN.ASSISTED LIVING HOME DIRECTOR [address] [place] [id number] PCP - General Internal Medicine 03/19/22 Cement Finishing Supervisor Relationship Specialty Start Date End Date Antonio Christina APRN.ASSISTED LIVING HOME DIRECTOR [address] [place] [phone] PCP - General Internal Medicine 03/19/22 Cement Finishing Supervisor Relationship Specialty Start Date End Date Antonio Christina APRN.ASSISTED LIVING HOME DIRECTOR [address] [place] [address] PCP - General Internal Medicine 03/19/22 Cement Finishing Supervisor Relationship Specialty Start Date End Date Antonio Christina APRN.ASSISTED LIVING HOME DIRECTOR [address] [place] [id number] PCP - General Internal Medicine 03/19/22 Cement Finishing Supervisor Relationship Specialty Start Date End Date Antonio Christina APRN.ASSISTED LIVING HOME DIRECTOR [address] [place] [phone] PCP - General Internal Medicine 03/19/22 Cement Finishing Supervisor Relationship Specialty Start Date End Date Antonio Christina APRN.ASSISTED LIVING HOME DIRECTOR [address] [place] [phone] PCP - General Internal Medicine 03/19/22 Cement Finishing Supervisor Relationship Specialty Start Date End Date Antonio Christina APRN.ASSISTED LIVING HOME DIRECTOR [address] [place] [address] PCP - General Internal Medicine 03/19/22 Cement Finishing Supervisor Relationship Specialty Start Date End Date Antonio Christina APRN.ASSISTED LIVING HOME DIRECTOR [address] [place] [address] PCP - General Internal Medicine 03/19/22 Cement Finishing Supervisor Relationship Specialty Start Date End Date Antonio Christina APRN.ASSISTED LIVING HOME DIRECTOR [address] [place] [phone] PCP - General Internal Medicine 03/19/22 Cement Finishing Supervisor Relationship Specialty Start Date End Date Antonio Christina APRN.ASSISTED LIVING HOME DIRECTOR [address] [place] [phone] PCP - General Internal Medicine 03/19/22 Cement Finishing Supervisor Relationship Specialty Start Date End Date Antonio Christina APRN.ASSISTED LIVING HOME DIRECTOR [address] [place] [phone] PCP - General Internal Medicine 03/19/22 Cement Finishing Supervisor Relationship Specialty Start Date End Date Antonio Christina APRN.ASSISTED LIVING HOME DIRECTOR [address] [place] [address], [place] [address] PCP - General Internal Medicine 03/19/22 Cement Finishing Supervisor Relationship Specialty Start Date End Date Antonio Christina APRN.ASSISTED LIVING HOME DIRECTOR [address] [facility] [place] [address] PCP - General Internal Medicine 03/19/22 Cement Finishing Supervisor Relationship Specialty Start Date End Date Antonio Christina FAST FOOD ASSISTANT RESTAURANT MANAGER.ASSISTED LIVING HOME DIRECTOR [address] [facility] [place] [address] PCP - General Internal Medicine 03/19/22 Cement Finishing Supervisor Relationship Specialty Start Date End Date Antonio Christina APRN.ASSISTED LIVING HOME DIRECTOR [address] [facility] [place] [address] PCP - General Internal Medicine 03/19/22 Cement Finishing Supervisor Relationship Specialty Start Date End Date Antonio Christina FAST FOOD ASSISTANT RESTAURANT MANAGER.ASSISTED LIVING HOME DIRECTOR [address] [facility] [place] [address] PCP - General Internal Medicine 03/19/22 Cement Finishing Supervisor Relationship Specialty Start Date End Date Antonio Christina APRN.ASSISTED LIVING HOME DIRECTOR [address] [facility] [place] [address] PCP - General Internal Medicine 03/19/22 Cement Finishing Supervisor Relationship Specialty Start Date End Date nAtonio Christina FAST FOOD ASSISTANT RESTAURANT MANAGER.ASSISTED LIVING HOME DIRECTOR [address] [facility] [place] [address] PCP - General Internal Medicine 03/19/22 Cement Finishing Supervisor Relationship Specialty Start Date End Date Antonio Christina FAST FOOD ASSISTANT RESTAURANT MANAGER.ASSISTED LIVING HOME DIRECTOR [address] [facility] [place] [address] PCP - General Internal Medicine 03/19/22 Cement Finishing Supervisor Relationship Specialty Start Date End Date Antonio Christina APRN.ASSISTED LIVING HOME DIRECTOR [address] [place] [address] PCP - General Internal Medicine 03/19/22 Cement Finishing Supervisor Relationship Specialty Start Date End Date Antonio Christina APRN.ASSISTED LIVING HOME DIRECTOR [address] [place] [address] PCP - General Internal Medicine 03/19/22 Cement Finishing Supervisor Relationship Specialty Start Date End Date Antonio Christina FAST FOOD ASSISTANT RESTAURANT MANAGER.ASSISTED LIVING HOME DIRECTOR [address] [facility] [place] [address] PCP - General Internal Medicine 03/19/22 Cement Finishing Supervisor Relationship Specialty Start Date End Date Antonio Christina FAST FOOD ASSISTANT RESTAURANT MANAGER.ASSISTED LIVING HOME DIRECTOR [address] [place] [address] PCP - General Internal Medicine 03/19/22 Cement Finishing Supervisor Relationship Specialty Start Date End Date Antonio Christina FAST FOOD ASSISTANT RESTAURANT MANAGER.ASSISTED LIVING HOME DIRECTOR [address] [place] [address] PCP - General Internal Medicine 03/19/22 Goals (unrecognized section and content) Goals may be documented in a n alternate sectionGoals may be documented in an alternate sectionGoals may be documented in an alternate section INFORMATION SOURCE (unrecogn ized section and content) DATE CREATED AUTHOR 04/24/2024 [facility] DATE CREATED AUTHOR AUTHOR'S BRITTNI PEÑALOZA 09/13/2024 [facility] FOR RECORDS PERTAINING TO PATIENTS WHO ARE OR HAVE BEEN ENROLLED IN A CHEMICAL DEPENDENCY/SUBSTANCEABUSE PROGRAM, SOME INFORMATION MAY BE OMITTED. This clinical summary was aggregated from multiple sources. Caution should be exercised in using it in the provision of clinical care. This summary normalizes information from multiple sources, and as a consequence, information in this document may materially change the coding, format and clinical context of patient data. In addition, data may be omitted in some cases. CLINICAL DECISIONS SHOULD BE BASED ON THE PRIMARY CLINICAL RECORDS. [facility] [facility]. provides no warranty or guarantee of the accuracy or completeness of information in this document.
--- NOTE | 2024-10-03 17:30 | RAD_ITS ---
PROCEDURE: FOREARM 2 VIEWS 10/03/2024 REASON FOR EXAM: INJURY TECHNIQUE: FOREARM 2 VIEWS Laterality: Left COMPARISON: None. FINDINGS: Bones: No acute osseous fracture. No aggressive osseous lesions. Joints: Normal alignment at the wrist and elbow. Soft tissues: Soft tissues are unremarkable. RAD/Forearm 2 Views IMPRESSION: NEGATIVE FOREARM Reading Location: [id number]
== END 2024-10-03 18:34 | disposition home or self-care (01) ==
PROVIDERS: Emergency Provider Emergency Medicine; Visit Provider Emergency Medicine
DX: S50.12XA Contusion of left forearm, initial encounter (principal); Z87.891 Personal history of nicotine dependence; V43.52XA Car driver injured in collision with other type car in traffic accident, initial encounter
CPT/HCPCS: 73090; 99282